=== PATIENT | male | born 1945 | race Caucasian/White ===

== ENCOUNTER 2023-01-11 07:50 | Outpatient (CLI) | payer MEDICARE, SELFPAY | END 2023-01-11 07:51 | disposition home or self-care (01) | LOC: NFLDREF 01-14 08:37 | PROVIDERS: PCP Family Medicine; Referring Provider Family Medicine; Visit Provider Family Medicine | DX: Z00.00 Encounter for general adult medical examination without abnormal findings (principal); E78.5 Hyperlipidemia, unspecified; I10 Essential (primary) hypertension; Z12.5 Encounter for screening for malignant neoplasm of prostate | CPT/HCPCS: 80053; 80061; 84153 ==

== ENCOUNTER 2023-02-04 11:55 | Outpatient (CLI) | payer MEDICARE, SELFPAY ==
--- NOTE | 2023-02-04 08:55 | W.ANESCHARGE ---
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
--- NOTE | 2023-02-04 13:11 | W.ANESCHARGE ---
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
== END 2023-02-04 11:56 | disposition home or self-care (01) ==
LOC: OP CLINIC 11:55
PROVIDERS: PCP Family Medicine; Visit Provider Internal Medicine
DX: R13.10 Dysphagia, unspecified (principal); K22.2 Esophageal obstruction
CPT/HCPCS: 00731; 43239; 88305; 99100; J2704; J3490

== ENCOUNTER 2023-02-24 08:13 | Emergency (ER) | payer MEDICARE, SELFPAY ==
[2023-02-24 08:17] VITALS: BP 208/87; PULSE 60; RESP 18; TEMP 36.2; O2SAT 99
[2023-02-24 09:02] LABS: Basophils Absolute Auto 0.04 K/uL (0.00-0.30); Basophils Percent Auto 0.4 % (0.0-3.0); Eosinophils Absolute Auto 0.14 K/uL (0.00-0.50); Eosinophils Percent Auto 1.5 % (0.0-7.0); Hematocrit 42.8 % (37.0-53.0); Hemoglobin* 14.3 gm/dL (13.5-17.5); Immature Granulocytes Abs Auto 0.01 K/uL (0.00-0.30); Immature Granulocytes Pct Auto 0.1 %; Lymphocytes Percent Auto 12.1 % (20-44); Mean Corpuscular HGB Conc 33 gm/dL (32-36); Mean Corpuscular Hemoglobin 30 pg (26-34); Mean Corpuscular Volume 90 fL (80-100); Monocytes Percent Auto 7.2 % (0.0-11.0); Neutrophils Percent Auto 78.7 % (42.0-72.0); Platelet Count* 198 K/uL (140-440); RDW Coefficient of Variation % 14.2 % (11.5-15.5); Red Blood Count 4.75 m/uL (4.30-5.90); White Blood Count* 9.54 K/uL (4.50-11.00)
[2023-02-24 09:05] LABS: Slide Review Reflex No
--- NOTE | 2023-02-24 09:09 | ED_ITS ---
HPI - General Adult General Chief complaint: Diarrhea Stated complaint: food poisoning, passing blood Time Seen by Provider: 02/24/23 08:23 Source: patient Mode of arrival: ambulatory Limitations: no limitations History of Present Illness HPI narrative: 77-year-old male coming in today complaining of rectal bleeding. He states that he was at a baseball game yesterday and had a hot dog which he feels was not properly cooked. Approximately 1 hour later he started having diarrhea. He had several episodes of diarrhea until 1 time he went to the bathroom and he had only blood come out. He believes was about a tbsp of blood. This occurred again this morning. In total he has had 6 episodes of diarrhea. He denies nausea or vomiting. No fevers or chills. He is not dizzy or lightheaded. He does not have any chest pain or shortness of breath. He has no rectal pain. Appetite has remained good. He does have a history of hemorrhoids which have blood in the past, however, have never blood this much. Last colonoscopy was 3- 4 years ago which he states he had polyps removed and he has a 5 year follow-up scheduled. Related Data Home Medications Medication Instructions Recorded Confirmed naproxen sodium 220 mg capsule 220 mg PO PRN 02/27/22 01/16/23 fluticasone propionate 50 1 spray intranasal QDAY PRN 12/10/22 01/16/23 mcg/actuation nasal spray,suspension aspirin 81 mg tablet,delayed 81 mg PO .every other day 01/16/23 02/24/23 release omeprazole 20 mg capsule,delayed 20 mg PO DAILY 02/24/23 02/24/23 release Previous Rx's Medication Instructions Recorded amlodipine 5 mg tablet 5 mg PO DAILY #90 tabs 01/16/23 atenolol 50 mg tablet 50 mg PO DAILY #90 tabs 01/16/23 lisinopril 30 mg tablet 30 mg PO DAILY #90 tabs 01/16/23 simvastatin 10 mg tablet 10 mg PO .Bedtime #90 tabs 01/16/23 Allergies Allergy/AdvReac Type Severity Reaction Status Date / Time No Known Drug Allergies Allergy Verified 01/16/23 09:24 Review of Systems Status of ROS: Reports: 10 or more systems reviewed and unremarkable except as noted in History and below [facility] Medical History Obstructive sleep apnea treated with continuous positive airway pressure (CPAP) ?G47.33 - Obstructive sleep apnea (adult) (pediatric) (ICD-10) ?Z99.89 - Dependence on other enabling machines and devices (ICD-10) Hypertension ?I10 - Essential (primary) hypertension (ICD-10) Hyperlipidemia ?E78.5 - Hyperlipidemia, unspecified (ICD-10) Herpes zoster (12/02/21) ?B02.9 - Zoster without complications (ICD-10) Surgical History Status post total knee replacement ?Z96.659 - Presence of unspecified artificial knee joint (ICD-10) History of carpal tunnel release (07/07/21) ?Z98.890 - Other specified postprocedural states (ICD-10) Family History Father Osteoarthritis Sister Osteoarthritis Brother Osteoarthritis Mother Stroke Social History Narrative: SOCIAL HISTORY: . Two children 5 grandchildren. 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 He is sexually active. Main exercise is playing golf although he uses a cart. He did more walking in [place] where they spent the winter. HABITS: No tobacco or recreational drug use. Alcohol use is 15 drinks per week. FAMILY HISTORY: Mother with stroke in the 1960s. Unspecified relative with heart disease. What is your current living situation?: I presently have a place to live Problems where you live: no known problems In the past 12 months, utilities in danger of being shut off: no In the past 12 mos, have been you worried that your food would run out before you had money to buy more?: never true In the past 12 mos, the food you bought just didn't last and you didn't have money to buy more?: never true Smoking Status: Former smoker What tobacco products do you use: cigarettes Smoking quit date/years: >15 years ago Do you use any of these nicotine containing products: None How often do you have a drink containing alcohol: never AUDIT-C Alcohol total score: 0 Non-prescribed substance use: denies use Are you now , , , , never or living with a partner: Social isolation score (0-1 are the most socially isolated patients): 1 How often does anyone, including family, friends and others, physically hurt you : How often does anyone, including family, friends and others, insult or talk down to you: How often does anyone, including family, friends and others, threaten you with harm: How often does anyone, including family, friends and others, scream or curse at you: Little interest or pleasure in doing things: not at all Feeling down, depressed, or hopeless: not at all Exam Narrative: Exam Narrative: Well-nourished well-developed patient in no acute distress. Alert and oriented. Answers questions appropriately. Mood and affect are appropriate. Thoughts are goal oriented and rational. No tangential or magical thinking noted. Patient speaks in full sentences without needing to catch his breath. HEENT: Normocephalic atraumatic. Pupils are equally round reactive to light. Extraocular muscles are intact. Conjunctivae are moist without any icterus noted. Moist mucous membranes. Neck is soft. Cardiovascular: Heart is regular rate and rhythm S1 and S2 are present without any murmurs. Lungs: Clear to auscultation bilaterally no wheezes rhonchi or rales are appreciated. Patient takes deep breaths without any discomfort. Abdomen: Soft and nontender nondistended with normal bowel sounds. No guarding or rebound. No masses or organomegaly appreciated. Extremities: Bilateral lower extremities are without edema. Skin: Well perfused without any obvious rashes. Rectal exam: He does have external hemorrhoids which are not thrombosed or actively. I do not see any rectal fissures. He has normal rectal tone. No internal rectal masses. There is no stool in the rectal vault. There is no blood on my gloved finger. Const: Vital Signs, click to edit/add: Vital Signs - 24 hr 02/24/23 08:17 Temperature 97.2 F L Pulse Rate [Right Pulse Oximeter] 60 Respiratory Rate 18 Blood Pressure [Ri ght Upper Arm] 208/87 H Pulse Oximetry 99 Oxygen Delivery Me thod Room Air Course Course Hospital Course: Lab work was unremarkable, no evidence of anemia. Vital Signs Vital signs: Initial Vital Signs Temperature 97.2 F L 02/24/23 08:17 Temperature Source Temporal Artery Scan 02/24/23 08:17 Pulse Rate 60 02/24/23 08:17 Respiratory Rate 18 02/24/23 08:17 Blood Pressure 208/87 H 02/24/23 08:17 Blood Pressure Mean 127 H 02/24/23 08:17 Blood Pressure Position Sitting 02/24/23 08:17 Pulse Oximetry 99 02/24/23 08:17 Oxygen Delivery Method Room Air 02/24/23 08:17 Vital Signs Temperature 97.2 F L 02/24/23 08:17 Pulse Rate 60 02/24/23 08:17 Respiratory Rate 18 02/24/23 08:17 Blood Pressure 208/87 H 02/24/23 08:17 Pulse Oximetry 99 02/24/23 08:17 Oxygen Delivery Method Room Air 02/24/23 08:17 Temperature 97.2 F L 02/24/23 08:17 Pulse Rate 60 02/24/23 08:17 Respiratory Rate 18 02/24/23 08:17 Blood Pressure 208/87 H 02/24/23 08:17 Pulse Oximetry 99 02/24/23 08:17 Oxygen Delivery Method Room Air 02/24/23 08:17 Medical Decision Making MDM Narrative Medical decision making narrative: 77-year-old male with diarrhea which is now slowing down, but her blood per rectum. Differential diagnoses includes bleeding from hemorrhoids, anal fissures. Given his lack of other symptoms I do not think this represents inflammatory disease. At this point recommend following up with primary care physician to discuss further management such as a colonoscopy. Return to the ER if bleeding worsens. Lab Data Lab results reviewed: Yes I reviewed the patient's lab results Labs: Lab Results 02/24/23 02/24/23 02/24/23 Range/Units 08:53 08:53 08:53 WBC 9.54 (4.50-11.00) K/uL RBC 4.75 (4.30-5.90) m/uL Hgb 14.3 (13.5-17.5) gm/dL Hct 42.8 (37.0-53.0) % MCV 90 (80-100) fL MCH 30 (26-34) pg MCHC 33 (32-36) gm/dL RDW Coeff of Dena 14.2 (11.5-15.5) % Plt Count 198 (140-440) K/uL Neut % (Auto) 78.7 H (42.0-72.0) % Lymph % (Auto) 12.1 L (20-44) % [place] % (Auto) 7.2 (0.0-11.0) % Eos % (Auto) 1.5 (0.0-7.0) % Baso % (Auto) 0.4 (0.0-3.0) % Neut # (Auto) 7.50 H (1.7-7.0) K/uL Lymph # (Auto) 1.20 (0.90-2.90) K/uL [place] # (Auto) 0.70 (0.00-0.90) K/UL Eos # (Auto) 0.14 (0.00-0.50) K/uL Baso # (Auto) 0.04 (0.00-0.30) K/uL Abs Immat Gran (auto) 0.01 (0.00-0.30) K/uL Imm/Tot Granulo (auto) 0.1 % Sodium 135 (135-149) mmol/L Potassium 4.6 (3.6-5.1) mmol/L Chloride 101 (96-114) mmol/L Carbon Dioxide 31 (20-32) mmol/L BUN 18 (7-30) mg/dL Creatinine 1.1 (0.5-1.5) mg/dL Estimated Creat Clear 59.91 Estimated GFR 70 ml/min Glucose 111 (60-115) mg/dL Calcium 9.1 (8.4-10.6) mg/dL Total Bilirubin 0.7 Cancelled (0.1-1.5) mg/dL Direct Bilirubin 0.0 Cancelled (0.0-0.5) mg/dL AST 25 (12-35) U/L ALT (4-50) U/L Alkaline Phosphatase (40-150) U/L Total Protein (6.0-8.3) g/dL Albumin (3.3-5.0) g/dL 02/24/23 02/24/23 02/24/23 Range/Units 08:53 08:53 08:53 WBC (4.50-11.00) K/uL RBC (4.30-5.90) m/uL Hgb (13.5-17.5) gm/dL Hct (37.0-53.0) % MCV (80-100) fL MCH (26-34) pg MCHC (32-36) gm/dL RDW Coeff of Dena (11.5-15.5) % Plt Count (140-440) K/uL Neut % (Auto) (42.0-72.0) % Lymph % (Auto) (20-44) % [place] % (Auto) (0.0-11.0) % Eos % (Auto) (0.0-7.0) % Baso % (Auto) (0.0-3.0) % Neut # (Auto) (1.7-7.0) K/uL Lymph # (Auto) (0.90-2.90) K/uL [place] # (Auto) (0.00-0.90) K/UL Eos # (Auto) (0.00-0.50) K/uL Baso # (Auto) (0.00-0.30) K/uL Abs Immat Gran (auto) (0.00-0.30) K/uL Imm/Tot Granulo (auto) % Sodium (135-149) mmol/L Potassium (3.6-5.1) mmol/L Chloride (96-114) mmol/L Carbon Dioxide (20-32) mmol/L BUN (7-30) mg/dL Creatinine (0.5-1.5) mg/dL Estimated Creat Clear Estimated GFR ml/min Glucose (60-115) mg/dL Calcium (8.4-10.6) mg/dL Total Bilirubin (0.1-1.5) mg/dL Direct Bilirubin (0.0-0.5) mg/dL AST Cancelled (12-35) U/L ALT 22 Cancelled (4-50) U/L Alkaline Phosphatase 67 Cancelled (40-150) U/L Total Protein 7.5 (6.0-8.3) g/dL Albumin (3.3-5.0) g/dL 02/24/23 02/24/23 Range/Units 08:53 08:53 WBC (4.50-11.00) K/uL RBC (4.30-5.90) m/uL Hgb (13.5-17.5) gm/dL Hct (37.0-53.0) % MCV (80-100) fL MCH (26-34) pg MCHC (32-36) gm/dL RDW Coeff of Dnea (11.5-15.5) % Plt Count (140-440) K/uL Neut % (Auto) (42.0-72.0) % Lymph % (Auto) (20-44) % [place] % (Auto) (0.0-11.0) % Eos % (Auto) (0.0-7.0) % Baso % (Auto) (0.0-3.0) % Neut # (Auto) (1.7-7.0) K/uL Lymph # (Auto) (0.90-2.90) K/uL [place] # (Auto) (0.00-0.90) K/UL Eos # (Auto) (0.00-0.50) K/uL Baso # (Auto) (0.00-0.30) K/uL Abs Immat Gran (auto) (0.00-0.30) K/uL Imm/Tot Granulo (auto) % Sodium (135-149) mmol/L Potassium (3.6-5.1) mmol/L Chloride (96-114) mmol/L Carbon Dioxide (20-32) mmol/L BUN (7-30) mg/dL Creatinine (0.5-1.5) mg/dL Estimated Creat Clear Estimated GFR ml/min Glucose (60-115) mg/dL Calcium (8.4-10.6) mg/dL Total Bilirubin (0.1-1.5) mg/dL Direct Bilirubin (0.0-0.5) mg/dL AST (12-35) U/L ALT (4-50) U/L Alkaline Phosphatase (40-150) U/L Total Protein Cancelled (6.0-8.3) g/dL Albumin 4.3 Cancelled (3.3-5.0) g/dL Discharge Plan Discharge Clinical Impression: Bright red rectal bleeding Patient Disposition: Home, Self-Care Condition: Stable Additional Instructions: Likely the source of your bleed are hemorrhoids. You should follow-up with your primary care provider this coming week to discuss the potential need for colonoscopy. Return to the ER if bleeding worsens. Okay to use Imodium to slow down diarrhea. Prescriptions: No Action naproxen sodium 220 mg capsule 220 mg PO PRN aspirin 81 mg tablet,delayed release (DR/EC) 81 mg PO .every other day amlodipine 5 mg tablet 5 mg PO DAILY Qty: 90 3RF atenolol 50 mg tablet 50 mg PO DAILY Qty: 90 3RF lisinopril 30 mg tablet 30 mg PO DAILY Qty: 90 3RF simvastatin 10 mg tablet 10 mg PO .Bedtime Qty: 90 3RF fluticasone propionate 50 mcg/actuation spray,suspension 1 spray intranasal QDAY PRN omeprazole 20 mg capsule,delayed release(DR/EC) 20 mg PO DAILY Follow Up/Referrals: Kedar Lopez MD [Primary Care Provider] - Stand Alone Forms: Pocket Social Info Instructions
[2023-02-24 09:16] LABS: Albumin* 4.3 g/dL (3.3-5.0); Chloride* 101 mmol/L (96-114); Sodium* 135 mmol/L (135-149)
[2023-02-24 09:17] LABS: Potassium* 4.6 mmol/L (3.6-5.1)
[2023-02-24 09:19] LABS: Alanine Aminotransferase* 22 U/L (4-50); Alkaline Phosphatase* 67 U/L (40-150); Aspartate Amino Transferase* 25 U/L (12-35); Bilirubin Total* 0.7 mg/dL (0.1-1.5); Blood Urea Nitrogen* 18 mg/dL (7-30); Carbon Dioxide* 31 mmol/L (20-32); Creatinine* 1.1 mg/dL (0.5-1.5); Est. Creatinine Clearance* 59.91; Estimated Glomerular Filt Rate 70 ml/min; Glucose* 111 mg/dL (60-115); Total Protein* 7.5 g/dL (6.0-8.3)
[2023-02-24 09:20] LABS: Calcium* 9.1 mg/dL (8.4-10.6)
[2023-02-24 09:27] LABS: C Reactive Protein* < 0.5 mg/dL (0.5-1.0)
[2023-02-24 09:47] LABS: Erythrocyte SedimentationRate* 4 mm/hr (2-15)
== END 2023-02-24 09:48 | disposition home or self-care (01) ==
PROVIDERS: Emergency Provider Family Medicine; PCP Family Medicine
DX: K62.5 Hemorrhage of anus and rectum (principal)
CPT/HCPCS: 36415; 80048; 80076; 82270; 85025; 85651; 86140; 99283; 99284

== ENCOUNTER 2023-06-05 06:27 | Day surgery (SDC) | payer MEDICARE, SELFPAY ==
[2023-06-05] VITALS (7 sets, daily range): BP systolic 166–213; BP diastolic 78–99; PULSE 64–69; RESP 16–17; TEMP 36.8–37.2; O2SAT 96–97; BMI 30.8
[2023-06-05] MEDS: BUPIVACAINE 0.5% 30 ML INJECTION (07:00)
[2023-06-05] MEDS: ETHYL CHLORIDE 1 APPLICATION 1 APPLIC TOPICAL (07:00)
--- NOTE | 2023-06-05 07:58 | SUR.OPER ---
PATIENT QUESTIONS ANSWERED SATISFACTORILY PREOPERATIVELY. PATIENT BROUGHT TO OR #2 PER WHEELCHAIR. Patient positioned supine on OR #2 bed. The perioperative team supported right arm bilaterally on arm boards. Final approval of positioning by surgeon.
[2023-06-05] MEDS: NEOMYCIN/BACITRACIN/POLYMYXIN B 1 APPLIC TOPICAL (08:05)
--- NOTE | 2023-06-05 08:05 | PM.ORPRC ---
Procedure Note Date of procedure: 06/05/23 Procedure: PREOPERATIVE DIAGNOSIS: 1. Left carpal tunnel syndrome POSTOPERATIVE DIAGNOSIS: 1. Left carpal tunnel syndrome PROCEDURE: 1. Left open carpal tunnel release SURGEON: Alan Palafox MD. VERTICAL BORING MILL OPERATOR: LUIS Mera ANESTHESIA: Local anesthetic (50:50 mixture of 1% lidocaine with epi and 0.5% marcaine plain) - 10ml total IMPLANTS: None EBL: 2 mL TOURNIQUET: None COMPLICATIONS: None evident INDICATIONS: The patient is a pleasant 78-year-old male who has experienced left hand numbess/tingling affecting the radial 3.5 digits for multiple months. It has progressively gotten worse. Nonoperative management has been tried and failed, and therefore surgery was recommended. DESCRIPTION OF PROCEDURE: Following a thorough discussion of risks, benefits, and alternatives consent was obtained and the operative extremity was marked. The patient was brought to the operating room and placed supine on the operating table. Local anesthesia induction was undertaken in preop holding. No antibiotics were administered as this was planned to be a local case only. Proper time-out was performed identifying proper patient, site, and procedure. The operative extremity was prepped and draped in the appropriate sterile fashion using ChloraPrep. An incision was made in line with the radial border of the ring finger beginning 1 cm distal to the distal wrist crease and progressing for another 2.5cm distal. Caution was taken to stay proximal to Alston's cardinal line. Sharp incision through the skin, subcutaneous tissue, and palmar fascia was performed. The thenar musculature was bluntly elevated off the transverse carpal ligament. The ligament was directly visualized, and divided sharply with a 15 blade. This was released from its most proximal to the most distal extent. Metzenbaum scissor was also utilized to release the fascia extension proximally. We confirmed complete release of the transverse carpal ligament. Closure was performed with 4-O nylon in interrupted fashion. Soft dressings were applied, and the patient was transferred to the recovery room in stable condition. PLAN: 1. Encourage elevation of the operative extremity. 2. Range of motion of the fingers and hand/wrist as tolerated. 3. Ibuprofen/acetaminophen and/or oxycodone as needed for pain control. 4. Follow up with PA visit or nurse visit in 12-16 days for wound check and suture removal.
== END 2023-06-05 08:36 | disposition home or self-care (01) ==
PROVIDERS: PCP Family Medicine; Visit Provider Orthopaedic Surgery Sports Medicine
PROC: (CPT 64721; principal; 2023-06-05 08:00)
DX: G56.02 Carpal tunnel syndrome, left upper limb (principal)
CPT/HCPCS: 64721; J0665

== ENCOUNTER 2024-01-14 07:45 | Outpatient (CLI) | payer MEDICARE, SELFPAY ==
--- OUTSIDE RECORDS SUMMARY | 2024-01-17 20:45 | XMS_ITS | Encounter Summary ---
Author Organization [facility] Address [address] [place] [id number] Care Team Providers Care Rpg Programmer Name Role Phone Sam Madrigal MD Primary Care Provider Unavaila ble Reason for Visit * Reason Comments RASH B/p reports no curre nt flare up. Report meds working .look at spot on abdomen, Encounter Details Date Type Department Care Team (Late st Contact Info) Description 11/06/2023 10:00 AM CDT Office Visit [facility] [address] [facility] [place] [address] Abby Maya MD [address] [place] [phone] Seborrheic keratoses (Primary Dx); Bullous pemphigoid; History of ongoing treatment with high-risk medication Social History Tobacco Use Types Packs/Day Years Used Date Smoking Tobacco: Former Cigarettes 1.5 20 0 11/29/1964 - 11/29/1984 Smokeless Tobacco: Never Alcohol Use Standard Drinks/Week Comments Yes 10 (1 standard drink = 0.6 oz pu re alcohol) Weekly PHQ-2 Answer Date Recorded PHQ-2 Score 0 01/05/2021 Sex and Gender Information Value Date Recorded Sex Assigned at Not on file Gender Identity Not on file Sexual Orientation Not on file documented as of this encounter Patient Instructions * Patient Instructions* Gilbert Izaguirre, JHONNY - 11/06/2023 10:00 AM CDT Thank you for allowing me to participate in your care at [facility]. If you have had a biopsy done today you will be contacted with your biopsy results by phone, letteror email as soon as results are available (usually within 7 days). Results will come to your MyChart at the same time as your provider, so you may see these before we do. If that happens, do not panic! We will be in touch. [facility] am [facility] on Saturday, Saturday, and Saturday. If you need to reach me for a question or concern, please contact me.The dermatology appointment number is [phone]). I generally return messages between 12 or after 3:00 when I am not seeing patients in clinic. We also have excellent Dermatology triage nurses who may be able to answer your questions or relay information from me to you. The schedule fills very quickly and I appreciate you making routine appointments as far in advance as possible. The schedule is open 12 months in advance. I recognize that your time is of value and I try very hard to remain on schedule. Punctual check infor appointments is appreciated and will help me to meet everyone???s needs in a timely manner. Please remember to use appropriate sun protection and I look forward to providing ongoing care for your skin needs. documented in this encounter Progress Notes * Abby Maya MD - 11/06/2023 10:00 AM CDT Dermatology Note Chief Complaint Patient presents with RASH B/p reports no current flare up. Report meds working .look at spot on abdomen, Dermatology Visit Questionnaire (Mychart) 11/03/2023 1:27 PM CDT - Filed by Patient What's the main skin concern you'd like to discuss during your visit? BP this is a follow-up visit What prescribed or [id number] medications, supplements, ointments or creams have you used foryour skin concern in the past? Mycophenolate 2x/day, Clobetasol ointment as needed Have you seen someone for your skin concern outside of the [facility] network? No HPI: Kang Mckoy is a 78 y.o. old male who presents for BP follow up. On CellCept 500 mg BID since April 2023. No rash, minimal itching. Spot treats itchy areas on flanks with clobetasol. Has ?headache as well as ongoing issues with glaucoma. No GI issues. Derm History: BP (biopsy proven) - 04/2023 (failed doxycycline, CellCept started 04/2023) ?lip biopsy done approximately 2014 - unknown reportedly benign results AKS-cryotherapy EICs Seborrheic dermatitis - mometasone solution PRN Labs from outside records 02/24/2023: CBC, CMP WNL ROS: Healthy, otherwise feeling well today. PMH: OA, HTN, BPH Family History: No known family history of skin cancer or atypical nevi. Social History: [employer] in [place], former smoker. No smokeless tobacco. 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 Medications: has a current medication list which includes the following prescription(s): amlodipine, aspirin, atenolol, zyrtec allergy, clobetasol, hydroxyzine hcl, latanoprost, lisinopril, mycophenolate, naproxen sodium, omeprazole, and simvastatin. Allergies: has No Known Allergies. General: This is a WDWN male sitting comfortably in no distress. Neuro: Very pleasant and cooperative. Alert and oriented x 3 Skin: Areas examined included the head, neck, chest, back, abdomen, bilateral upper extremities. Pertinent findings include: 1. Few stuck on brown papules on torso. No edematous or urticarial areas on torso. Assessment/Plan: 1. Bullous pemphigoid, biopsy proven. Improving on CellCept. Continue CellCept. DISCUSSED TRYING TO DECREASE TO 500 MG DAILY FOR NEXT 3 MONTHS. If flare, increase back to 500 mg BID. Can continue with clobetasol ointment BID PRN new itchy areas. Continue omeprazole. Side effects including immunosuppression and GI upset reviewed. Labs today, CBC and CMP. Follow-up 3 months. PCP and ophthalmology follow up for headache concerns. Abby Maya MD 11/06/2023 documented in this encounter Plan of Treatment Upcoming Encounters Date Type Department Care Team (Late st Contact Info) Description 02/19/2024 10:30 AM CDT Appointment [facility] [address] [facility] [place] [address] Abby Maya MD [address] [place], [place] [phone] documented as of this encounter Results * (ABNORMAL) CMP - Comprehensive Metabolic Panel (11/06/2023 10:30 AM CDT) Sodium 135(L) 136 - 145 mmol/L 11/06/2023 12:40 PM CDT [facility] Potassium 4.9 3.5 - 5.1 mmol/L 11/06/2023 12:40 PM T [facility] Chloride 100 98 - 109 mmol/L 11/06/2023 12:40 PM T [facility] CO2 25 20 - 29 mmol/L 11/06/2023 12:40 PM T [facility] Anion Gap 10 7 - 16 mmol/L 11/06/2023 12:40 PM T [facility] Calcium 9.5 8.4 - 10.4 mg/dL 11/06/2023 12:40 PM T [facility] BUN 20 7 - 26 mg/dL 11/06/2023 12:40 PM T [facility] Creatinine 1.16 0.73 - 1.18 mg/dL 11/06/2023 12:40 PM T [facility] Alkaline Phosphatase 87 40 - 150 U/L 11/06/2023 12:40 PM T [facility] AST (SGOT) 16 10 - 40 U/L 11/06/2023 12:40 PM T [facility] ALT (SGPT) 14 <=55 U/L 11/06/2023 12:40 PM T [facility] Bilirubin, Total 0.7 0.2 - 1.2 mg/dL 11/06/2023 12:40 PM T [facility] Protein, Total 7.1 6.4 - 8.3 g/dL 11/06/2023 12:40 PM T [facility] Albumin 3.7 3.5 - 5.0 g/dL 11/06/2023 12:40 PM T [facility] Glucose 100 70 - 100 mg/dL 11/06/2023 12:40 PM T [facility] Comment:The given reference range is for the fasting state. Non-fasting reference range for glucose is 70 - 180 mg/dL. GFR, Estimated >60 >60 mL/min/1. 73m2 11/06/2023 12:40 PM T [facility] Hours Fasting 0.0 8 - 12 Hours 11/06/2023 12:40 PM [facility] Blood Venipuncture / Unknown 11/06/2023 10:30 AM CDT 11/06/2023 10:30 AM CDT Abby Maya MD LAB_1 Performing Organization Address City/State/[facility] Co de Phone Number [facility] [address] documented in this encounter Visit Diagnoses Diagnosis Seborrheic keratoses- Primary Bullous pemphigoid Pemphigoid History of ongoing treatment with high-risk medication Encounter for long-term (current) use of other medications documented in this encounter Care Teams Rpg Programmer Relationship Specialty Start Date End Date Sam Madrigal MD PCP - General 11/17/07 documented as of this encounter
--- OUTSIDE RECORDS SUMMARY | 2024-01-17 20:45 | XMS_ITS | Encounter Summary ---
Author Organization [facility] Address [address] [address] Care Team Providers Care Systems Spec Name Role Phone Sam Madrigal MD Primary Care Provider Unavaila ble Encounter Details Date Type Department Care Team (Latest Contact Info) Description 05/27/2019 Flowsheet External to External, [place] [address] BP Social History Tobacco Use Types Packs/Day Years Used Date Smoking Tobacco: Former Cigarettes 1.5 20 0 11/29/1964 - 11/29/1984 Smokeless Tobacco: Never Alcohol Use Standard Drinks/Week Comments Yes 10 (1 standard drink = 0.6 oz pu re alcohol) Weekly PHQ-2 Answer Date Recorded PHQ-2 Score 0 03/25/2019 Sex and Gender Information Value Date Recorded Sex Assigned at Not on file Gender Identity Not on file Sexual Orientation Not on file documented as of this encounter Plan of Treatment Upcoming Encounters Date Type Department Care Team (Late st Contact Info) Description 02/19/2024 10:30 AM CDT Appointment [facility] [address] [facility] [place] [address] Abby Maya MD [address] [place] [address] documented as of this encounter Visit Diagnoses Not on filedocumented in this encounter Care Teams Systems Spec Relationship Specialty Start Date End Date Sam Madrigal MD PCP - General 11/17/07 documented as of this encounter
--- OUTSIDE RECORDS SUMMARY | 2024-01-17 20:45 | XMS_ITS | Encounter Summary ---
Author Organization [facility] Address [address] [place] [address] Care Team Providers Care Liquid Yeast Supervisor Name Role Phone Sam Madrigal MD Primary Care Provider Unavaila ble Reason for Referral * Procedure/Equipment (Routine) - New Request Specialty Diagnoses / Procedures Referred By Casey ivy Referred To Contact Diagnoses Obstructive sleep apnea (adult) (pediatric) Procedures Positive Airway Pressure - Replacement/Repair Donis Luong APRN, CNP [address] [place] [address] Referral ID Status Reason Start Date Expiration Date V isits Requested Visits Authorized [id number] New Request 01/09/2024 04/09/2025 1 1 Encounter Details Date Type Department Care Team (Late st Contact Info) Description 01/09/2024 Notes/Orders [facility] [address] [facility] [place] [address] Geovanna Headley Obstructive sleep apnea (adult) (pediatric) (Primary Dx) Social History Tobacco Use Types Packs/Day Years [...] CDT Appointment [facility]ty [facility] [address] [place] [address]. [place] [address] Abby Maya MD [address] [place] [address] documented as of this encounter Visit Diagnoses Diagnosis Obstructive sleep apnea (adult) (pediatric)- Primary documented in this encounter Care Teams Liquid Yeast Supervisor Relationship Specialty Start Date End Date Sam Madrigal MD PCP - General 11/17/07 documented as of this encounter
--- OUTSIDE RECORDS SUMMARY | 2024-01-17 20:45 | XMS_ITS | Clinical Summary ---
Author Organization [facility] Address [place], [place] [address] Care Team Providers Care Client Relations Representative Name Role Phone Sam Madrigal Bennie Primary Care Provider Unavailabl e Allergies No known active allergies Medications Medication Sig Dispensed Refills Start Date End Date Status clindamycin (CLEOCIN) 150 mg capsuleIndications: Aftercare following joint replacement 2 tablets 1 hour before appointment and 1 tablet 6 hours after initial dose. 3 capsule 3 04/20/2015 Active atenolol (TENORMIN) 50 mg tablet 03/08/2016 Active lisinopril (PRINIVIL; ZESTRIL) 20 mg tablet 03/08/2016 Active simvastatin (ZOCOR) 20 mg tablet 03/08/2016 Active Active Problems Problem Noted Date Diagnosed Date s/p Right TKA 201104/26/2016 s/p Left TKA 02/26/2013 04/26/2016 Family History Medical History Relation Name Comments Hyperlipidemia Mother Stroke Mother Relation Name Status Comments Mother Social History Tobacco Use Types Packs/Day Years Used Date Smoking Tobacco: Never Smokeless Tobacco: Never Alcohol Use Standard Drinks/Week Comments Yes 0 (1 standard drink = 0.6 oz pur e alcohol) 2 drinks a day Sex and Gender Information Value Date Recorded Sex Assigned at Not on file Gender Identity Not on file Sexual Orientation Not on file Obstetrics History Last Filed Vital Signs Vital Sign Reading Time Taken Comments Blood Pressure - - Pulse - - Temperature - - Respiratory Rate - - Oxygen Saturation - - Inhaled Oxygen Concentration - - Weight 90.7 kg (200 lb) 04/26/2016 11:22 AM CDT Height 177.8 cm (5' 10) 04/26/2016 11:22 AM CDT Body Mass Index 28.7 04/26/2016 11:22 AM CDT Plan of Treatment Health Maintenance Due Date Last Done Comments Tdap 1958 Depression screening for age 12+ 1959 Hepatitis C screening for age 18-79 1965 Tetanus booster 1967 Zoster (shingles) series for age 50+ (1 of 2) 1997 Pneumococcal series for age 65+ (1 of 1 - PCV) 2012 BMI (ht and wt on same day) for age 18+ 04/26/2017 0 04/26/2016 COVID-19 vaccine series (3 - 2022-24 season) 2023 11/25/2020, 11/04/2020 Influenza for age 65+ 03/29/2024 Care Teams Client Relations Representative Relationship Specialty Start Date End Date Sam Madrigal PCP - General Family Practice 04/26/16
--- OUTSIDE RECORDS SUMMARY | 2024-01-17 20:45 | XMS_ITS | Encounter Summary ---
Author Organization [facility] Address [address] [place] [address] Care Team Providers Care Marketing Editor Name Role Phone Sam Madrigal MD Primary Care Provider Unavaila ble Encounter Details Date Type Department Care Team (Late Contact Info) Description 11/06/2023 10:40 AM CDT Lab Visit Specialty [facility] Laboratory 401 [facility]. [place], [place] [id number] Bullous pemphigoid Social History Tobacco Use Types Packs/Day Years [...] on file documented as of this encounter Progress Notes * Abby Maya MD - 11/06/2023 10:40 AM CDT Lab results released online with note. No further action needed. documented in this encounter Plan of Treatment Upcoming Encounters Date Type Department Care Team (Late Contact Info) Description 02/19/2024 10:30 AM CDT Appointment [facility] 401 [facility] [place] [address] Abby Maya MD [address] [place], [place] [phone] documented as of this encounter Procedures Procedure Name Priority Date/Time Associated Diagnosis Comments CBC AND DIFFERENTIAL PANEL Routine 11/06/2023 10:30 AM CDT Bullous pemphigoid COMPLETE BLOOD COUNT-W/DIFF Routine 11/06/2023 10:30 AM CDT Bullous pemphigoid COMPREHENSIVE METABOLIC PANEL Routine 11/06/2023 10:30 AM CDT Bullous pemphigoid documented in this encounter Results * (ABNORMAL) Complete Blood Count-W/Diff (11/06/2023 10:30 AM CDT) WBC 6.7 3.5 - 10.5 x10(9)/L 11/06/2023 10:41 AM CDT [facility] RBC 4.72 4.32 - 5.72 x10(12)/L 11/06/2023 10:41 AM CDT [facility] Hemoglobin 14.1 13.5 - 17.5 g/dL 11/06/2023 10:41 AM CDT [facility] HCT 42.3 38.8 - 50.0 % 11/06/2023 10:41 AM CDT [facility] MCV 89.6 80.0 - 100.0 fL 11/06/2023 10:41 AM CDT [facility] MCH 29.9 27.6 - 33.3 pg 11/06/2023 10:41 AM CDT [facility] MCHC 33.3 31.5 - 35.2 g/dL 11/06/2023 10:41 AM CDT [facility] RDW 13.0 11.9 - 15.5 % 11/06/2023 10:41 AM CDT [facility] Platelets 244 150 - 450 x10(9)/L 11/06/2023 10:41 AM CDT [facility] Neutrophil Absolute 4.7 1.7 - 7.0 10(9)/L 11/06/2023 10:41 AM CDT [facility] Lymphocyte Absolute 0.9(L) 1.0 - 4.8 10(9)/L 11/06/2023 10:41 AM CDT [facility] Monocyte Absolute 0.8 0.2 - 0.9 10(9)/L 11/06/2023 10:41 AM CDT [facility] Eosinophil Absolute 0.2 0.0 - 0.5 10(9)/L 11/06/2023 10:41 AM CDT [facility] Basophil Absolute 0.0 0.0 - 0.3 10(9)/L 11/06/2023 10:41 AM CDT [facility] Immature Granulocyte % 0.1 0.0 - 0.5 % 11/06/2023 10:41 AM CDT [facility] Blood Venipuncture / Unknown 11/06/2023 10:30 AM CDT 11/06/2023 10:30 AM CDT Abby Maya MD LAB_1 [facility] [address] [place] [address] * (ABNORMAL) CMP - Comprehensive Metabolic Panel (11/06/2023 10:30 AM CDT) Sodium 135(L) 136 - 145 mmol/L 11/06/2023 12:40 PM [facility] Potassium 4.9 3.5 - 5.1 mmol/L 11/06/2023 12:40 PM T [facility] Chloride 100 98 - 109 mmol/L 11/06/2023 12:40 PM T [facility] CO2 25 20 - 29 mmol/L 11/06/2023 12:40 PM T [facility] Anion Gap 10 7 - 16 mmol/L 11/06/2023 12:40 PM T [facility] Calcium 9.5 8.4 - 10.4 mg/dL 11/06/2023 12:40 PM T [facility] BUN 20 7 - 26 mg/dL 11/06/2023 12:40 PM T [facility] Creatinine 1.16 0.73 - 1.18 mg/dL 11/06/2023 12:40 PM T [facility] Alkaline Phosphatase 87 40 - 150 U/L 11/06/2023 12:40 PM T [facility] AST (SGOT) 16 10 - 40 U/L 11/06/2023 12:40 PM T [facility] ALT (SGPT) 14 <=55 U/L 11/06/2023 12:40 PM T [facility] Bilirubin, Total 0.7 0.2 - 1.2 mg/dL 11/06/2023 12:40 PM T [facility] Protein, Total 7.1 6.4 - 8.3 g/dL 11/06/2023 12:40 PM T [facility] Albumin 3.7 3.5 - 5.0 g/dL 11/06/2023 12:40 PM [facility] Glucose 100 70 - 100 mg/dL 11/06/2023 12:40 PM [facility] Comment:The given reference range is for the fasting state. Non-fasting reference range for glucose is 70 - 180 mg/dL. GFR, Estimated >60 >60 mL/min/1. 73m2 11/06/2023 12:40 PM T [facility] Hours Fasting 0.0 8 - 12 Hours 11/06/2023 12:40 PM [facility] Blood Venipuncture / Unknown 11/06/2023 10:30 AM CDT 11/06/2023 10:30 AM T Abby Maya MD LAB_1 [facility] [address] documented in this encounter Visit Diagnoses Diagnosis Bullous pemphigoid Pemphigoid documented in this encounter Care Teams Marketing Editor Relationship Specialty Start Date End Date Sam Madrigal MD PCP - General 11/17/07 documented as of this encounter
--- OUTSIDE RECORDS SUMMARY | 2024-01-17 20:45 | XMS_ITS | Encounter Summary ---
Author Organization [facility] Address [address], [place] [address] Care Team Providers Care Developmental Specialist Name Role Phone Sam Madrigal MD Primary Care Provider Unavaila ble Reason for Referral * Procedure/Equipment (Routine) - New Request Specialty Diagnoses / Procedures Referred By Contac t Referred To Contact Diagnoses Obstructive sleep apnea (adult) (pediatric) Procedures Sleep Management Other MD Azalia [address] [place] [address] Referral ID Status Reason Start Date Expiration Date V isits Requested Visits Authorized [id number] New Request 11/28/2023 02/26/2025 1 1 Encounter Details Date Type Department Care Team (Late st Contact Info) Description 11/28/2023 Notes/Orders [facility] [address] [place] [phone] Hang Pena [address] [place] [address] Obstructive sleep apnea (adult) (pediatric) (Primary Dx) [...] Appointment Specialty Center [address] [facility] [facility] [address] [place] [address] Abby Maya MD [address] [place] [address] documented as of this encounter Visit Diagnoses Diagnosis Obstructive sleep apnea (adult) (pediatric)- Primary documented in this encounter Care Teams Developmental Specialist Relationship Specialty Start Date End Date Sam Madrigal MD PCP - General 11/17/07 documented as of this encounter
--- OUTSIDE RECORDS SUMMARY | 2024-01-17 20:45 | XMS_ITS | Encounter Summary ---
Author Organization [facility] Address [address] [place] [address] Care Team Providers Care Production Grader Name Role Phone Sam Madrigal MD Primary Care Provider Unavaila ble Reason for Referral * Procedure/Equipment (Routine) - Authorized Specialty Diagnoses / Procedures Referred By Contac t Referred To Contact Diagnoses Obstructive sleep apnea (adult) (pediatric) Procedures Sleep Management Other MD Azalia [address] [place] [address] Referral ID Status Reason Start Date Expiration Date V isits Requested Visits Authorized [id number] Authorized 01/10/2024 04/10/2025 1 1 Encounter Details Date Type Department Care Team (Late st Contact Info) Description 01/10/2024 Notes/Orders [facility] [address] [place] [address] Geovanna Headley Obstructive sleep apnea (adult) (pediatric) [...] CDT Appointment Specialty Center [address] [place] [address]. [place] [address] Abby Maya MD [address] [place] [address] documented as of this encounter Visit Diagnoses Diagnosis Obstructive sleep apnea (adult) (pediatric)- Primary documented in this encounter Care Teams Production Grader Relationship Specialty Start Date End Date Sam Madrigal MD PCP - General 11/17/07 documented as of this encounter
--- OUTSIDE RECORDS SUMMARY | 2024-01-17 20:45 | XMS_ITS | Encounter Summary ---
Author Organization [facility] Address [address], [place] [address] Care Team Providers Care Forklift Mechanic Name Role Phone Sam Madrigal MD Primary Care Provider Unavaila ble Reason for Visit * Reason Comments EQUIPMENT EVALUATION Encounter Details Date Type Department Care Team (Late st Contact Info) Description 12/09/2023 10:30 AM CDT [facility] [address] [place] [address] Dylan Flaherty Social History Tobacco Use Types Packs/Day Years [...] as of this encounter Progress Notes * Dylan Flaherty - 12/09/2023 10:30 AM CDT Kang Mckoy was seen by [facility] on 12/09/2023, for a defective PAP device. This issue was Loud motor. The device was inspected and the issue was confirmed during the appointment. The ResMed unit was performing as expected via [employer]. The unit is not under warranty. Defective Serial numbers are: [id number]. Patient has not used his machine since July and did not need a loaner machine. He will wait to hear what the estimate is when it comes back. DM documented in this encounter Plan of Treatment Upcoming Encounters Date Type Department Care Team (Late st Contact Info) Description 02/19/2024 10:30 AM CDT Appointment Specialty Center [address] [place] [address]. [place] [address] Abby Maya MD [address] [place] [address] documented as of this encounter Visit Diagnoses Not on filedocumented in this encounter Care Teams Forklift Mechanic Relationship Specialty Start Date End Date Sam Madrigal MD PCP - General 11/17/07 documented as of this encounter
--- OUTSIDE RECORDS SUMMARY | 2024-01-17 20:45 | XMS_ITS | Clinical Summary ---
Author Organization [facility] Address [address] [place] [address] Care Team Providers Care Pathology Transcriptionist Name Role Phone Sam Madrigal MD Primary Care Provider [phone] Allergies No known active allergies Medications Medication Sig Dispensed Refills Start Date End Date Status HYDROcodone-acetamin ophen (NORCO) 5-325 mg oral tablet Take 1-2 tablets by mouth every 6 (six) hours as needed for Pain. 20 tablet 04/06/2019 Active cephalexin (KEFLEX) 500 mg oral capsule Take 1 capsule (500 mg) by mouth three times a day. 21 capsule 04/06/2019 Active Social History Tobacco Use Types Packs/Day Years Used Date Smoking Tobacco: Former Cigarettes Smokeless Tobacco: Never Alcohol Use Standard Drinks/Week Comments Not Currently 0 (1 standard drink = 0.6 oz pur e alcohol) Sex and Gender Information Value Date Recorded Sex Assigned at Not on file Gender Identity Not on file Sexual Orientation Not on file Plan of Treatment Health Maintenance Due Date Last Done Comments Colonoscopy 1945 Hepatitis C Screening 1945 Depression Assessment (PHQ-2) 1946 Zoster Vaccine (1 of 2) 1997 RSV 60+ Yrs (1 - 1-dose 60+ series) 2007 Pneumococcal 65+ (1 of 1 - PCV) 2012 Yearly Review of HCD 04/05/2020 04/06/2019 Adult Tetanus Booster 12/14/2020 12/14/2010 COVID-19 Vaccine ( - 2022- season) 2023 Influenza Vaccine (Season Ended) 2024 05/23/20, 05/25/2010 Care Teams Pathology Transcriptionist Relationship Specialty Start Date End Date Sam Madrigal MD [address] [address] PCP - General 04/06/19
--- OUTSIDE RECORDS SUMMARY | 2024-01-17 20:45 | XMS_ITS | Clinical Summary ---
Author Organization [facility] Address [address], [place] [address] Care Team Providers Care Pull Through Hooker Name Role Phone Sam Madrigal MD Primary Care Provider Unavaila ble Source Comments You are receiving this document as you are listed as the primary care provider,follow-up provider, or the patient has been referred to you for consultation.This is in compliance with the Medicare and[facility] Hospital[facility] EHR Incentive Program,which states Providers who transition their patient to another setting of careor provider of care or refers their patient to another provider of care shouldprovide summary care record for each transition of care or referral. [facility] Allergies No known active allergies Medications Medication Sig Dispensed Refills Start Date End Date Status NAPROXEN SODIUM OR Active aspirin 81 MG tabletIndications:Yani st pain, unspecified type Take 1 Tablet by mouth daily. 100 Tablet 3 12/30/2018 Active simvastatin (ZOCOR) 10 MG tabletIndications:Mix ed hyperlipidemia (HRC) Take 1 tablet by mouth once daily 90 Tablet 3 02/28/2021 Active amLODIPine (NORVASC) 5 MG tabletIndications:Ess ential hypertension (HRC) Take 1 Tablet by mouth daily. 90 Tablet 3 03/06/2021 Active atenolol (TENORMIN) 50 MG tabletIndications:Ess ential hypertension (HRC) Take 1 Tablet by mouth daily. 90 Tablet 3 03/06/2021 Active hydrOXYzine HCl (ATARAX) 25 MG tablet Take 1 Tablet (25 mg) by mouth three times a day as needed. Active clobetasol (TEMOVATE) 0.05 % ointmentIndications:D ermatitis APPLY TOPICALLY TO AREAS OF RASH 1-2 TIMES DAILY UNTIL CLEAR, REPEAT CYCLE WITH FLARES 180 g 6 06/18/2023 Active mycophenolate (CELLCEPT) 500 MG tabletIndications:Bul lous pemphigoid Take 1 Tablet (500 mg) by mouth two times a day. 180 Tablet 1 06/18/2023 06/17/2024 Active omeprazole (PRILOSEC) 20 MG capsuleIndications:Bu llous pemphigoid Take 1 Capsule (20 mg) by mouth daily. Take 1 hour before a meal. 90 Capsule 3 06/18/2023 06/17/2024 Active latanoprost (XALATAN) 0.005 % eye drop solution SMARTSIG:In Eye(s) 10/27/2023 Active lisinopril (ZESTRIL) 40 MG tablet Active Cetirizine HCl (ZYRTEC ALLERGY) 10 MG CAPS 12/27/2022 Active Active Problems Problem Noted Date Diagnosed Date Adenomatous polyp of colon 07/15/2019 Mixed hyperlipidemia 03/14/2017 CAREPLAN: ADVANCE DIRECTIVES/CODE STATUS 016 Overview: CAREPLAN: ADVANCE DIRECTIVES/CODE STATUS/see advance directive signed 03/07/16 under media tab Secondhand smoke exposure 07/07/2012 RAY (obstructive sleep apnea) 04/22/2012 Overview: RAY (severe, AHI 33, SpO2 82%) Sleep related hypoventilatio n/hypoxemia in conditions classifiable elsewhere 04/22/2012 Overview: Sleep hypoxemia (SpO2 82%) CPAP/BiPAP dependence 04/22/2012 Overview: CPAP dependence (11 cmH20) S/P right knee arthroscopy 03/24/2012 Benign prostatic hyperplasia 01/01/2012 Osteoarthritis of knee 12/15/2009 Overview: Osteoarthritis of Knee mod-severe R medial Hyperkalemia 12/08/2007 Essential hypertension 10/16/2002 Overview: Epic Resolved Problems Problem Noted Date Diagnosed Date Resolved Date DJD (Degenerative Joint Disease) of Knee 12/21/2006 12/15/2009 Overview: DJD of Right Knee Mixed hyperlipidemia 10/16/2002 017 Encounters Date Type Department Care Team Description 01/13/2024 10:30 AM CDT [facility] [address] [place] [address] Rohan Rooney 01/10/2024 Notes/Orders [facility] [address] [place] [address] Geovanna Headley Obstructive sleep apnea (adult) (pediatric) (Primary Dx) 01/09/2024 Notes/Orders [facility] [address] [place] [address] Geovanna Headley Obstructive sleep apnea (adult) (pediatric) (Primary Dx) 12/09/2023 10:30 AM CDT [facility] [address] [place] [address] Dylan Flaherty 11/28/2023 Notes/Orders [facility] [address] [place] [address] Hang Pena Obstructive sleep apnea (adult) (pediatric) (Primary Dx) 11/06/2023 10:40 AM CDT [facility] [address] [facility] [place] [address] Bullous pemphigoid 11/06/2023 10:00 AM CDT [facility] [address] [facility] [place] [address] Abby Maya MD Seborrheic keratoses (Primary Dx); Bullous pemphigoid; History of ongoing treatment with high-risk medication from Last 3 Months Immunizations Name Administration Dates Next Due Flu Vac (3+ yrs) 05/23/2011,05/25/2010 [id number] 08/11/2009,06/27/2009 Influenza IIV3 (Trivalent) F luzone Highdose, 65+ Yrs (05163) 05/05/2020,04/27/2019 Influenza IIV4 (Quadrivalent ) Fluzone, 65+ Yrs 05/05/2020 Influenza, Unspecified Formulation 05/27/2012 PCV13 (Prevnar) 04/27/2019 PPSV23 (Pneumovax) 02/29/2020, 8(Deferred: Patient Refused - until after surg 8-1-13) Pfizer Monovalent 12+ Purple Top 11/25/2020,04/0 03/2021 Td 10/16/2002 Tdap 12/14/2010 Family History Medical History Relation Name Comments Cerebrovascular Disease Mother at 45 from CVA Hyperlipidemia Mother at 45 Hypertension Brother 3 Probable Hyperlipidemia Other All three sib lings with very elevated lipids Hypertension Sister 2 Thromboembolic Disease Sister 3 Alcohol/Drug Abuse Negative Family History Asthma Negative Family History Cancer, Colon Negative Family History Cancer, Melanoma Negative Family History Cancer, Other Negative Family History Cancer, Prostate Negative Family History Coronary Artery Disease Negative Family History Father in 80s from CHF Diabetes, Type II Negative Family History Migraines Negative Family History Relation Name Status Comments Father (Age 83) Mother (Age 45) CVA Brother 1 Alive 1945 Brother 2 Alive 1954 Brother 3 Other Sister 1 Alive 1943 Sister 2 Sister 3 Son 1 Alive [facility], 1972 Son 2 Alive [place] [address] Social History Tobacco Use Types Packs/Day Years [...] on file Sexual Orientation Not on file Last Filed Vital Signs Vital Sign Reading Time Taken Comments Blood Pressure 140/75 03/06/2021 9:55 AM CDT Pulse 64 03/06/2021 9:21 AM CDT Temperature 36.4 ??C (97.5 ??F) 01/04/2021 4:44 PM CD T Respiratory Rate 17 07/07/2019 12:05 PM PATIENT DAY COORDINATOR Oxygen Saturation 95% 07/07/2019 12:05 PM PATIENT DAY COORDINATOR Inhaled Oxygen Concentration - - Weight 95.7 kg (211 lb) 03/06/2021 9:21 AM CDT Height 175.3 cm (5' 9) 01/04/2021 4:44 PM CDT Body Mass Index 31.16 01/04/2021 4:44 PM CDT Plan of Treatment Upcoming Encounters Date Type Department Care Team (Late st Contact Info) Description 02/19/2024 10:30 AM CDT [facility]ointment [facility] [address] [facility] [place] [address] Abby Maya MD [address] [place] [address] Health Maintenance Due Date Last Done Comments Medicare Annual Wellness Visit 01/05/2022 01/05/2021, 03/25/2019, 03/17/2018, Additional history exists Prediabetes: HGBA1C 03/06/2022 03/06/2021 COVID-19 Vaccine ( season) 2023 05/27/2023, 07/03/2022, 01/16/2022, Additional history exists Colonoscopy 07/07/2024 07/07/2019, 06/30/2009 DTaP/Tdap/Td (5 - Tdap) 12/12/2031 12/12/19 22, 12/14/2010, 10/16/2002, Additional history exists Hep C Screening (Preventive Services) Completed 03/17/2018 Pneumococcal 65+ Yrs Completed 02/29/2020, 04/27/20 19 Cholesterol Discontinued 03/02/2021, 09/2019, 03/25/2019, Additional history exists Zoster/Shingles Completed 04/23/2022, 02/05/2022 Influenza Completed 05/27/2023, 10/2021, 05/16/2021, Additional history exists HepA Aged Out No longer eligi ble based on patient's age to complete this topic HepB Aged Out No longer eligi ble based on patient's age to complete this topic Hib Aged Out No longer eligi ble based on patient's age to complete this topic IPV (Polio) Aged Out No longer eligi ble based on patient's age to complete this topic MCV4 Aged Out No longer eligi ble based on patient's age to complete this topic Procedures Procedure Name Priority Date/Time Associated Diagnosis Comments COMPLETE BLOOD COUNT-W/DIFF Routine 11/06/2023 10:30 AM CDT Bullous pemphigoid COMPREHENSIVE METABOLIC PANEL Routine 11/06/2023 10:30 AM CDT Bullous pemphigoid CBC AND DIFFERENTIAL PANEL Routine 11/06/2023 10:30 AM CDT Bullous pemphigoid HGB A1C Routine 03/06/2021 10:24 AM CDT Impaired fasting glucose LIPID PANEL & DIRECT LDL (IF NEEDED) Routine 03/02/2021 7:56 AM CDT Mixed hyperlipidemia COLONOSCOPY Routine 07/07/2019 11:16 AM PATIENT DAY COORDINATOR Screen for colon cancer HEPATITIS C ANTIBODY, WITH REFLEX Routine 03/17/2018 9:22 AM CDT Screening for viral disease from Last 3 Months or Most Recently Relevant to Health Maintenance Results * (ABNORMAL) Complete Blood Count-W/Diff (11/06/2023 [...] - 33.3 pg 11/06/2023 10:41 AM CDT [facility] MCHC 33.3 31.5 - 35.2 g/dL 11/06/2023 10:41 AM CDT [facility] RDW 13.0 11.9 - 15.5 % 11/06/2023 10:41 AM CDT [facility] Platelets 244 150 - 450 x10(9)/L 11/06/2023 10:41 AM CDT [facility] Neutrophil Absolute 4.7 1.7 - 7.0 10(9)/L 11/06/2023 10:41 AM CDT [facility] Lymphocyte Absolute 0.9(L) 1.0 - 4.8 10(9)/L 11/06/2023 10:41 AM CDT [facility] Monocyte Absolute 0.8 0.2 - 0.9 10(9)/L 11/06/2023 10:41 AM CDT [facility] Eosinophil Absolute 0.2 0.0 - 0.5 10(9)/L 11/06/2023 10:41 AM CDT [facility] Basophil Absolute 0.0 0.0 - 0.3 10(9)/L 11/06/2023 10:41 AM CDT [facility] Immature Granulocyte % 0.1 0.0 - 0.5 % 11/06/2023 10:41 AM CDT [facility] Blood Venipuncture / Unknown 11/06/2023 10:30 AM CDT 11/06/2023 10:30 AM CDT Abby Maya MD LAB_1 [facility] [address] [place] [address], [facility] * (ABNORMAL) CMP - Comprehensive Metabolic Panel (11/06/2023 10:30 AM CDT) Sodium 135(L) 136 - 145 mmol/L 11/06/2023 12:40 PM T [facility] Potassium 4.9 3.5 - 5.1 mmol/L 11/06/2023 12:40 PM [facility] Chloride 100 98 - 109 mmol/L 11/06/2023 12:40 PM [facility] CO2 25 20 - 29 mmol/L 11/06/2023 12:40 PM [facility] Anion Gap 10 7 - 16 mmol/L 11/06/2023 12:40 PM [facility] Calcium 9.5 8.4 - 10.4 mg/dL 11/06/2023 12:40 PM [facility] BUN 20 7 - 26 mg/dL 11/06/2023 12:40 PM [facility] Creatinine 1.16 0.73 - 1.18 mg/dL 11/06/2023 12:40 PM [facility] Alkaline Phosphatase 87 40 - 150 U/L 11/06/2023 12:40 PM [facility] AST (SGOT) 16 10 - 40 U/L 11/06/2023 12:40 PM [facility] ALT (SGPT) 14 <=55 U/L 11/06/2023 12:40 PM [facility] Bilirubin, Total 0.7 0.2 - 1.2 mg/dL 11/06/2023 12:40 PM [facility] Protein, Total 7.1 6.4 - 8.3 g/dL 11/06/2023 12:40 PM [facility] Albumin 3.7 3.5 - 5.0 g/dL 11/06/2023 12:40 PM [facility] Glucose 100 70 - 100 mg/dL 11/06/2023 12:40 PM [facility] Comment:The given reference range is for the fasting state. Non-fasting reference range for glucose is 70 - 180 mg/dL. GFR, Estimated >60 >60 mL/min/1. 73m2 11/06/2023 12:40 PM [facility] Hours Fasting 0.0 8 - 12 Hours 11/06/2023 12:40 PM [facility] Blood Venipuncture / Unknown 11/06/2023 10:30 AM [facility] 11/06/2023 10:30 AM CDT Abby Maya MD LAB_1 Performing Organization Address [facility]/ZIP Co de Phone Number [facility] [address] * Hgb A1C (03/06/2021 10:24 AM CDT) Hemoglobin A1C 5.5 <=5.6 % 03/06/2021 5:09 PM CDT [facility] Blood Venipuncture / Unknown 03/06/2021 10:24 AM CDT 03/06/2021 10:24 AM CDT Sam Madrigal MD LAB_1 Performing Organization Address [facility] Co de Phone Number [facility] [address] [phone] * Lipid Panel and Direct LDL(If Needed) (03/02/2021 7:56 AM CDT) Cholesterol 150 0 - 199 mg/dL 03/02/2021 11:43 AM CDT [facility] Triglyceride 82 <=149 mg/dL 03/02/2021 11:43 AM CDT [facility] HDL Cholesterol 51 >=40 mg/dL 03/02/2021 11:43 AM CDT [facility] LDL, Calculated 83 <130 mg/dL 03/02/2021 11:43 AM CDT [facility] Non HDL Chol, Calculated 99 <=159 mg/dL 03/02/2021 11:43 AM CDT [facility] Cholesterol/HDL Ratio 2.9 03/02/2021 11:43 AM CDT [facility] Hours Fasting 12 03/02/2021 11:43 AM CDT [facility] Blood Venipuncture / Unknown 03/02/2021 7:56 AM CDT 03/02/2021 7:56 AM CDT Sam Madrigal MD LAB_1 Performing Organization Address City/[facility]/ZIP Co de Phone Number [facility] [address] [place] [address], [facility] [phone] [facility] [id number] [place] [address], [facility] [phone] * COLONOSCOPY [[id number]] (07/07/2019 11:16 AM PATIENT DAY COORDINATOR) 07/07/2019 11:1 6 AM PATIENT DAY COORDINATOR Narrative [facility]) - 07/07/2019 11:45 AM PATIENT DAY COORDINATOR Instrument Name: 183 Indications: ? Screening for colorectal malignant neoplasm Providers: ? Emerson Clifford MD, Brandi Dowling LPN, ? Sury Dubon RN Referring MD: ?Sam Th Medicines: ? Midazolam 2 mg IV, Fentanyl 100 micrograms IV Complications: ? No immediate complications. Procedure: ? Pre-Anesthesia Assessment: ? - The risks and benefits of the procedure and the ? sedation options and risks were discussed with the ? patient. All questions were answered and informed ? consent was obtained. ? - Airway Examination: normal oropharyngeal airway and ? neck mobility. ? - ASA Grade Assessment: II - A patient with mild ? systemic disease. ? After I obtained informed consent, the scope was ? passed under direct vision. Prior to sedation, ? patient identity and procedure was reverified. ? Throughout the procedure, the patient's blood ? pressure, pulse, and oxygen saturations were ? monitored continuously. The PCF-H190L was introduced ? through the anus and advanced to the cecum, ? identified by appendiceal orifice and ileocecal ? valve. The patient tolerated the procedure well. The ? quality of the bowel preparation was good. The ? ileocecal valve and the appendiceal orifice were ? photographed. Findings: ? Multiple medium-mouthed diverticula were found in the sigmoid colon. ? A 7 mm polyp was found in the cecum. The polyp was sessile. The polyp ? was removed with a cold snare. Resection and retrieval were complete. ? Estimated blood loss: none. ? Internal hemorrhoids were found during retroflexion. The hemorrhoids ? were medium-sized. ? The exam was otherwise without abnormality. Moderate Sedation: ? Moderate (conscious) sedation was administered by the endoscopy nurse ? and supervised by the endoscopist. The following parameters were ? monitored: oxygen saturation, heart rate, blood pressure, respiratory ? rate, EKG, adequacy of pulmonary ventilation, and response to care. ? Total physician intraservice time was 12 minutes. Impression: ?- Diverticulosis in the sigmoid colon. ? - One 7 mm polyp in the cecum, removed with a cold ? snare. Resected and retrieved. ? - Internal hemorrhoids. ? - The examination was otherwise normal. Recommendation: ?- Await pathology results. Procedure Code(s): ?? --- Professional --- ? 51428, PT, Colonoscopy, flexible; with removal of ? tumor(s), polyp(s), or other lesion(s) by snare ? technique ? G0500, PT, Moderate sedation services provided by the ? same physician or other qualified health care ? professional performing a gastrointestinal endoscopic ? service that sedation supports, requiring the ? presence of an independent trained observer to assist ? in the monitoring of the patient's level of ? consciousness and physiological status; initial 15 ? minutes of intra-service time; patient age 5 years or ? older (additional time may be reported with 93665, as ? appropriate) Diagnosis Code(s): ?? --- Professional --- ? Z12.11, Encounter for screening for malignant ? neoplasm of colon ? K64.8, Other hemorrhoids ? D12.0, Benign neoplasm of cecum ? K57.30, Diverticulosis of large intestine without ? perforation or abscess without bleeding CPT copyright 2018 [employer]. All rights reserved. The codes documented in this report are preliminary and upon forensic toxicologist review may be revised to meet current compliance requirements. Attending Participation: Emerson Clifford MD 07/07/2019 11:45:26 AM This report has been signed electronically. Number of Addenda: 0 Note Initiated On: 07/07/2019 11:16 AM Procedure Note Emerson Clifford MD - 07/07/2019 Instrument Name: 183 Indications: Screening for colorectal malignant neoplasm Providers: Emerson Clifford MD, Brandi Dowling LPN, Sury Dubon RN Referring MD: Sam Madrigal Medicines: Midazolam 2 mg IV, Fentanyl 100 micrograms IV Complications: No immediate complications. Procedure: Pre-Anesthesia Assessment: - The risks and benefits of the procedure and the sedation options and risks were discussed with the patient. All questions were answered and informed consent was obtained. - Airway Examination: normal oropharyngeal airway and neck mobility. - ASA Grade Assessment: II - A patient with mild systemic disease. After I obtained informed consent, the scope was passed under direct vision. Prior to sedation, patient identity and procedure was reverified. Throughout the procedure, the patient's blood pressure, pulse, and oxygen saturations were monitored continuously. The PCF-H190L was introduced through the anus and advanced to the cecum, identified by appendiceal orifice and ileocecal valve. The patient tolerated the procedure well. The quality of the bowel preparation was good. The ileocecal valve and the appendiceal orifice were photographed. Findings: Multiple medium-mouthed diverticula were found in the sigmoidcolon. A 7 mm polyp was found in the cecum. The polyp was sessile. The polyp was removed with a cold snare. Resection and retrieval were complete. Estimated blood loss: none. Internal hemorrhoids were found during retroflexion. The hemorrhoids were medium-sized. The exam was otherwise without abnormality. Moderate Sedation: Moderate (conscious) sedation was administered by the endoscopy nurse and supervised by the endoscopist. The following parameters were monitored: oxygen saturation, heart rate, blood pressure, respiratory rate, EKG, adequacy of pulmonary ventilation, and response to care. Total physician intraservice time was 12 minutes. Impression: - Diverticulosis in the sigmoid colon. - One 7 mm polyp in the cecum, removed with a cold snare. Resected and retrieved. - Internal hemorrhoids. - The examination was otherwise normal. Recommendation: - Await pathology results. Procedure Code(s): --- Professional --- 85857, PT, Colonoscopy, flexible; with removal of tumor(s), polyp(s), or other lesion(s) by snare technique G0500, PT, Moderate sedation services provided by the same physician or other qualified health rn care transition performing a gastrointestinal endoscopic service that sedation supports, requiring the presence of an independent trained observer to assist in the monitoring of the patient's level of consciousness and physiological status; initial 15 minutes of intra-service time; patient age 5 years or older (additional time may be reported with 16564, as appropriate) Diagnosis Code(s): --- Professional --- Z12.11, Encounter for screening for malignant neoplasm of colon K64.8, Other hemorrhoids D12.0, Benign neoplasm of cecum K57.30, Diverticulosis of large intestine without perforation or abscess without bleeding CPT copyright 2018 [employer]. All rights reserved. The codes documented in this report are preliminary and upon forensic toxicologist review may be revised to meet current compliance requirements. Attending Participation: Emerson Clifford MD 07/07/2019 11:45:26 AM This report has been signed electronically. Number of Addenda: 0 Note Initiated On: 07/07/2019 11:16 AM Emerson Clifford MD [facility] [place], [place] * Hepatitis C Antibody, with Reflex (03/17/2018 9:22 AM CDT) Anti-HCV Negative (Non Reactive) [facility] Comment: Antibodies to HCV not detected. Does not exclude the possibility of exposure to HCV. 03/17/2018 9:22 AM CDT 03/17/2018 9:23 AM CDT Narrative [facility] - 03/17/2018 3:53 PM CDT Performed at [facility], [address] [place] [address] ??[id number] Sam Madrigal MD LAB_1 Performing Organization Address City/[facility]/ZIP Co de Phone Number [facility] [phone] from Last 3 Months or Most Recently Relevant to Health Maintenance Care Teams Pull Through Hooker Relationship Specialty Start Date End Date Sam Madrigal MD PCP - General 11/17/07
--- OUTSIDE RECORDS SUMMARY | 2024-01-17 20:45 | XMS_ITS | Encounter Summary ---
Author Organization [facility] Address [address] [place] [address] Care Team Providers Care Sql Programmer Name Role Phone Sam Madrigal MD Primary Care Provider Unavaila ble Encounter Details Date Type Department Care Team (Late st Contact Info) Description 07/07/2019 Consent for Procedure/Treatme nt [facility] Department INFORMED CONSENT RECORD Social History Tobacco Use Types Packs/Day Years [...] Appointment [facility] [address] [place] [address]. [place] [address] Abby Maya MD [address] [place] [id number] documented as of this encounter Visit Diagnoses Not on filedocumented in this encounter Care Teams Sql Programmer Relationship Specialty Start Date End Date Sam Madrigal MD PCP - General 11/17/07 documented as of this encounter
--- OUTSIDE RECORDS SUMMARY | 2024-01-17 20:45 | XMS_ITS | Encounter Summary ---
Author Organization [facility] Address [address] [place] [address] Care Team Providers Care Hand Router Operator Name Role Phone Sam Madrigal MD Primary Care Provider Unavaila ble Encounter Details Date Type Department Care Team (Late st Contact Info) Description 06/25/2017 Correspondence None No Primary/Referring, Phy HME EQUIPMENT MARINE DIESEL TECHNICIAN TICKET CPAP Social History Tobacco Use Types Packs/Day Years Used Date Smoking Tobacco: Former Cigarettes 1.5 20 0 11/29/1964 - 11/29/1984 Smokeless Tobacco: Never Alcohol Use Standard Drinks/Week Comments Yes 10 (1 standard drink = 0.6 oz pu re alcohol) Sex and Gender Information Value Date Recorded Sex Assigned at Not on file Gender Identity Not on file Sexual Orientation Not on file documented as of this encounter Plan of Treatment Upcoming Encounters Date Type Department Care Team (Late st Contact Info) Description 02/19/2024 10:30 AM CDT [facility]ointment [facility] [address] [facility] [place] [address] Abby Maya MD [address] [place], [place] [id number] documented as of this encounter Visit Diagnoses Not on filedocumented in this encounter Care Teams Hand Router Operator Relationship Specialty Start Date End Date Sam Madrigal MD PCP - General 11/17/07 documented as of this encounter
--- OUTSIDE RECORDS SUMMARY | 2024-01-17 20:45 | XMS_ITS | Referral Summary ---
Author Organization [facility] Address [address] [place] [address] Care Team Providers Care Spray Machine Operator Name Role Phone Sam Madrigal MD Primary Care Provider [phone] Allergies No known active allergies Medications Medication [...] Orientation Not on file Plan of Treatment Not on file Care Teams Spray Machine Operator Relationship Specialty Start Date End Date Sam Madrigal MD [address] [place] [address] PCP - General 04/06/19
--- OUTSIDE RECORDS SUMMARY | 2024-01-17 20:45 | XMS_ITS | Encounter Summary ---
Author Organization [facility] Address [address], [place] [address] Care Team Providers Care Medical Coding Specialist Name Role Phone Sam Madrigal MD Primary Care Provider Unavaila ble Reason for Visit * Reason Comments EQUIPMENT EVALUATION Picking up loaner Encounter Details Date Type Department Care Team (Late st Contact Info) Description 01/13/2024 10:30 AM CDT [facility] [address] [place] [address] Rohan Rooney Social History Tobacco Use Types Packs/Day Years [...] as of this encounter Progress Notes * Rohan Rooney - 01/13/2024 10:30 AM CDT [facility], for a defective PAP device. This issue was Loud motor. The device was inspected and the issue was confirmed during the appointment. The [employer] unit was performing as expected via [employer]. The unit is not under warranty. The unit was sent in to [facility] and the cost to repair exceeded the replacement cost. We are going to replace the device but need current compliance for ongoing supplies before the replacement. Defective Serial numbers are: [id number] The defective device was replaced by a loaner device received by the patient. Serial numbers for the loaner are [id number]. The loaner unit had 1,227 hours. The $250.00 deposit for the loanerwas taken via [employer] and deposit is set to run on 04/14/2024. Pressure settings on the loaner were Auto CPAP with a pressure of [id number]. The patient will be using the loaner to achieve compliance so we can get an auth for resupply. MARIE documented in this encounter Plan of Treatment Upcoming Encounters Date Type Department Care Team (Late st Contact Info) Description 02/19/2024 10:30 AM CDT Appointment [facility] [address] [place] [address]. [place] [address] Abby Maya MD [address] [place] [address] documented as of this encounter Visit Diagnoses Not on filedocumented in this encounter Care Teams Medical Coding Specialist Relationship Specialty Start Date End Date Sam Madrigal MD PCP - General 11/17/07 documented as of this encounter
--- OUTSIDE RECORDS SUMMARY | 2024-01-17 20:45 | XMS_ITS | Encounter Summary ---
Author Organization [facility] Address [address] [place] [address] Care Team Providers Care Cement Sprayer Helper Name Role Phone Sam Madrigal MD Primary Care Provider Unavaila ble Encounter Details Date Type Department Care Team (Late Contact Info) Description 11/04/2018 Correspondence None Inactive, Provider PAP EQUIPMENT PICK-UP TICKET Social History Tobacco Use Types Packs/Day Years [...] [facility] [address] [facility] [place] [address] Abby Maya MD [address] [place] [address] documented as of this encounter Visit Diagnoses Not on filedocumented in this encounter Care Teams Cement Sprayer Helper Relationship Specialty Start Date End Date Sam Madrigal MD PCP - General 11/17/07 documented as of this encounter
--- OUTSIDE RECORDS SUMMARY | 2024-01-17 20:45 | XMS_ITS | Encounter Summary ---
Author Organization [facility] Address [address] [place] [address] Care Team Providers Care Private Wealth Advisor Name Role Phone Sam Madrigal MD Primary Care Provider Unavaila ble Encounter Details Date Type Department Care Team (Latest Contact Info) Description 03/25/2019 Flowsheet External to Flow Sheet, Provider BLOOD PRESSURE Social History Tobacco Use Types Packs/Day Years Used Date Smoking Tobacco: Former Cigarettes 1.5 20 0 11/29/1964 - 11/29/1984 Smokeless Tobacco: Never Alcohol Use Standard Drinks/Week Comments Yes 10 (1 standard drink = 0.6 oz pu re alcohol) PHQ-2 Answer Date Recorded PHQ-2 Score 0 03/25/2019 Sex and Gender Information Value Date Recorded Sex Assigned at Not on file Gender Identity Not on file Sexual Orientation Not on file documented as of this encounter Plan of Treatment Upcoming Encounters Date Type Department Care Team (Late st Contact Info) Description 02/19/2024 10:30 AM CDT Appointment [facility] [address] [facility] [address] [place] [address]. [place] [address] Abby Maya MD [address] [place] [address] documented as of this encounter Visit Diagnoses Not on filedocumented in this encounter Care Teams Private Wealth Advisor Relationship Specialty Start Date End Date Sam Madrigal MD PCP - General 11/17/07 documented as of this encounter
--- OUTSIDE RECORDS SUMMARY | 2024-01-17 20:45 | XMS_ITS | Data Portability ---
Author Organization [facility] [place] Address [address] [place] [address] [place] [address] Care Team Providers Care Supervisor Contingents Name Role Phone ALEXANDRA MI Primary Care Provider Assessment Encounter Date Assessment Date Assessment LastModified by Organization Details LastModified Time 09/08/2022 09/08/2022 09/08/2022 -COVID-19 nasal swab specimen sent to [facility] -Pt was instructed to call tomorrow to obtain Covid-19 results. he understands that we do not call to give results. he is to call - Option #1. [email or web address] Not available 09/08/2022 09:13:02 Plan of Treatment Reminders Order Date Submit Date Provider Last Modified By Organization Details Last Modified Time Details Appointments None recorded. Lab None recorded. Referral None recorded. Procedures None recorded. Surgeries None recorded. Imaging None recorded. Medication Orders azithromyc in 250 mg tablet 2022 023 [facility], [address] [place] [place] [address], [address], 3 09:15:15 fluticason e propionate 50 mcg/actuat ion nasal spray,susp ension 2022 023 [facility], [address] [place]. [place] [facility] [address], [place], [address], 3 09:15:15 Zyrtec 10 mg tablet 2022 023 [facility], [address] [address] [place] [address], [address], 09:20:32 Patient TargetsNo targets recorded. Patient Instructions Encounter Date Encounter Id Patient Instructions Last Modified By Organization Details Last Modified Time 09/08/2022 [id number] Acute Sinusitis: Care Instructions [email or web address] Not available 09/08/2022 09:11:38 saline nasal washes: care instructions [email or web address] Not available 09/08/2022 09:11:38 hand-washing: ca re instructions Not available 09/08/2022 09:11:38 coronavirus (covid-19): care instructions [email or web address] Not available 09/08/2022 09:11:38 high blood pressure: care instructions [email or web address] Not available 09/08/2022 09:11:38 low sodium diet (2,000 milligram): care instructions [email or web address] Not available 09/08/2022 09:11:38 upper respirator y infection (cold): care instructions [email or web address] Not available 09/08/2022 09:11:38 -Long discussion with patient about the strong likelihood of illness being a viral infection or allergy mediated sinus congestion. Pt is concerned that he is developing into a bacterial infection and requesting an antibiotic be prescribed today. Will prescribe but instructed patient to hold antibiotic for another week as viral infections are self limiting, need to run its course, and antibiotics do not shorten the illness duration. Educated pt to ensure adequate hydration with non-caffeinated clear liquids (water, juice, decaf tea). Sleep elevated to prevent aspiration of post nasal drainage, aid coughing and easier breathing. Rest your body to allow your immune system to work for you to help rid of the infection. Discussed OTC mucinex and antihistamines for symptom relief. If develops fever/chills, productive cough, CP/SOB, lightheartedness, to RTC for re-evaluation. Pt verbalized understanding. Pt was instructed to go to the ER or call 911 if develops SOB, chest tightness, fever 100.5f, chills, CP, upper back pain, or any other symptoms. pt verbalized understanding Recommendation Regarding the Use of Cloth Face Coverings, Especially in Areas of Significant Community-Based Transmission Other Languages Print Page mask icon Use of Cloth Face Coverings to Help Slow the Spread of COVID-19 Learn More CDC continues to study the spread and effects of the novel coronavirus across the [place]. We now know from recent studies that a significant portion of individuals with coronavirus lack symptoms (? asymptomatic? ) and that even those who eventually develop symptoms (? pre-symptomatic? ) can transmit the virus to others before showing symptoms. This means that the virus can spread between people interacting in close proximity? for example, speaking, coughing, or sneezing? even if those people are not exhibiting symptoms. In light of this new evidence, CDC recommends wearing cloth face coverings in public settings where other social distancing measures are difficult to maintain (e.g., grocery stores and pharmacies) especially in areas of significant community-based transmission. It is critical to emphasize that maintaining 6-feet social distancing remains important to slowing the spread of the virus. CDC is additionally advising the use of simple cloth face coverings to slow the spread of the virus and help people who may have the virus and do not know it from transmitting it to others. Cloth face coverings fashioned from household items or made at home from common materials at low cost can be used as an additional, voluntary public health measure. The cloth face coverings recommended are not surgical masks or N-95 respirators. Those are critical supplies that must continue to be reserved for healthcare workers and other medical first responders, as recommended by current CDC guidance. This recommendation complements and does not replace the President? s Coronavirus Guidelines for [place], 30 Days to Slow the Spread external icon, which remains the cornerstone of our national effort to slow the spread of the coronavirus. CDC will make additional recommendations as the evidence regarding appropriate public health measures continues to develop. What is social distancing? Social distancing, also called ? physical distancing,? means keeping space between yourself and other people outside of your home. To practice social or physical distancing: Stay at least 6 feet (about 2 arms? length) from other people Do not gather in groups Stay out of crowded places and avoid mass gatherings In addition to everyday steps to prevent COVID-19, keeping space between you and others is one of the best tools we have to avoid being exposed to this virus and slowing its spread locally and across the country and world. Limit close contact with others outside your household in indoor and outdoor spaces. Since people can spread the virus before they know they are sick, it is important to stay away from others when possible, even if you? or they? have no symptoms. Social distancing is especially important for people who are at higher risk for severe illness from COVID-19. Many people have personal circumstances or situations that present challenges with practicing social distancing to prevent the spread of COVID-19. [email or web address] Not available 09/08/2022 09:10:05 PLAN 1. Pt was instructed to call tomorrow to obtain Covid-19 results. Pt understands that we do not call to give results. PT is to call - Option #1. 1. Patient to follow up with PCP or RTC within the next 2-3 days or sooner if symptoms persist or worsen 2. Patient instructed [facility] open M-F 8am-8pm and Sat/Sun 8am-5pm, and [facility] is open everyday from 8Am- 5 PM. Patient should return for any question(s)/concern (s)/evaluation(s) 3. Patient directed to CALL 911/and/or GO IMMEDIATELY to the emergency dept if symptoms worsen 4. Discussed natural and expected course of this diagnosis and need to alert me if symptoms do not follow expected course, or if any worse. * 1. Maintain good hydration - 8-10 glasses of fluid /day 2. Air humidifier qhs 3. Saline Sinus Rinse BID 4. Claritin/Zyrtec prn perennial allergic response 5. F/U in office should symptoms warrant 6. Discussed natural and expected course of this diagnosis and need to alert PCP if symptoms do not follow expected course, or if any worse. [email or web address] Not available 09/08/2022 09:10:52 Reason for Referral None Reported. Problems Name Status Onset Date Resolution Date Notes Provider Name and Address Organization Details Recorded Time Hyperlipidemia Active 09/08/19 [facility] 09/08/2022 08:53:08 Hypertensive disorder Active 09/08/19 [facility] [place] 09/08/2022 08:53:12 Problem Notes None recorded. Procedures Surgical History Date Name Laterality Status Provider Name and Address Organization Details Recorded Time LEFT Knee Replacement completed [facility] [place] 09/08/2022 08:54:06 RIGHT Knee Replacement completed [facility] [place] 09/08/2022 08:54:14 Imaging Results None recorded. Procedure Notes None recorded. Medical Equipment None Reported. Allergies No known drug allergies Medications Name Sig Start Date Stop Date Status Note LastModified by Organization Details LastModified Time Prescriptio n - Renewal active Not Available Not Available Not Available nystatin 100,000 unit/mL oral suspension USE 1ML ORALLY EVERY DAY FOR 2 WEEKS (ADMINIST ER 1/2 OF DOSE ON EACH SIDE OF MOUTH) 09/08 completed Not Available Not Available Not Available cetirizine 10 mg tablet TAKE 1 TABLET BY MOUTH ONCE DAILY active Not Available Not Available No t Available azithromyci n 250 mg tablet TAKE 2 TABLETS BY MOUTH ON DAY 1, AND THEN TAKE 1 TABLET BY MOUTH ONCE A DAY ON DAY 2 THROUGH DAY 5 active Not Available Not Available No t Available valacyclovi r 1 gram tablet TAKE 1 TABLET BY MOUTH THREE TIMES DAILY FOR 7 DAYS 09/08 completed Not Available Not Available Not Available simvastatin 10 mg tablet TAKE 1 TABLET BY MOUTH AT BEDTIME active Not Available Not Available No t Available amlodipine 5 mg tablet TAKE 1 TABLET BY MOUTH ONCE DAILY active Not Available Not Available No t Available lisinopril 30 mg tablet TAKE 1 TABLET BY MOUTH ONCE DAILY active Not Available Not Available No t Available fluticasone propionate 50 mcg/actuati on nasal spray,suspe nsion USE 1 SPRAY(S) IN EACH NOSTRIL TWICE DAILY FOR 7 DAYS active Not Available Not Available No t Available atenolol 50 mg tablet TAKE 1 TABLET BY MOUTH ONCE DAILY active Not Available Not Available No t Available BinaxNOW COVID-19 Ag Self Test kit Use as Directed on the Package 09/08 completed Not Available Not Available Not Available Vitals Date Recorded Heart rate Body height Respiratory rate Body temperature Body mass index (BMI) Body weight Oxygen saturation Oxygen saturation in Arterial blood by Pulse oximetry Systolic blood pressure Diastolic blood pressure Provider Name and Address Organization Details Last Updated DateTime 3 61 /min 177.8 cm 18 /min 97.6 [degF] 29.4 kg/m2 32835.4 4 g 97 % 97 % 143 mm[Hg] 65 mm[Hg] RANDA ARPITA [facility] 3 08:51:02 Social History Question Answer Notes LastModified by Organizat ion Details LastModified Time Tobacco Smoking Status Former Smoker quit 1984 RANDA ARPITA [facility] 09/08/2022 08:53:57 What Is Your Level Of Alcohol Consumption? Moderate [email or web address] Information not available 09/08/2022 How Many Years Have You Smoked Tobacco? 20 1 Pack A Day [email or web address] Information not available 09/08/2022 Sex: Male Functional Status None recorded. Mental Status None recorded. Family History Relationship Description Onset Age of this Age Resolved Age Notes Notes:mom/dad Medical History Condition Response Allergies, Hayfever, Polen, Tree, Cats, Dogs, Dust or Mite N Gastrointestinal Problem, Peptic Ulcer D isease(Stomach Ulcer) N Heart Disease, Acute Myocardial Infarcti on N Infectious Disease, MRSA exposure N Psychiatric Disorder, Depression, Anxiet y N DIAGNOSTIC STUDY: Mammogram N Muscle Disorder, Fibromyalgia N Blood Diseases, Hemophilia N Cancer, Skin, Melanoma, Squamous Cell, B violet Cell N Surgical Complications, Anesthesia N Hospitalizations or Surgery (most recent ) N Lung Disease, COPD , Emphysema N Obesity N DIAGNOSTIC STUDY: Ultrasound N Gastrointestinal Problem, Constipation N Kidney Disease, Hematuria(Blood in urine ) N Psychiatric Disorder, Schizophrenia N Heart Disease, Congestive Heart Disease N Anemia, Iron Deficiency N Cancer, Lymphoma N Blood Diseases, Hemochromatosis N DIAGNOSTIC STUDY: CT Scan N Infectious Disease, History of Tuberculo sis N Anemia, Sickle Cell Trait N Lung Disease, Asthma N Neurological Disorder, Stroke/TIA N Heart Disease, Heart Murmur N DIAGNOSTIC STUDY: Stress Test N Gastrointestinal Problem, Irritable Francisco Javier l Syndrome N Ear Nose and Throat (ENT), Meniere's dis ease N Cancer, Prostate, Bladder N Cancer, Cervical or Ovarian N DIAGNOSTIC STUDY: PET Scan N Lung Disease, Pulmonary Embolism N DIAGNOSTIC STUDY: Immunocap (Allergy Keren ting) N DIAGNOSTIC STUDY: Colonoscopy N Vision Problem, Glaucoma N Psychiatric Disorder, Bipolar Disease N Gastrointestinal Problem, Gall Bladder, GERD-Reflux N DIAGNOSTIC STUDY: Bone Density N Genitourinary Problems, BPH, incontinenc e, frequency N Vision Problem, Macular Degeneration N Eating Disorder, Anorexia, Bulimia N Vascular disorder, Varicosities N Infectious Disease, Chicken Pox, Shingle s, Herpes Zoster N Ear Nose and Throat (ENT), Nasal Polyps, Chronic Sinusitis N Bone & Joint Disorder, Arthritis, RHEUMA TOID N Cancer, Breast N Thyroid Disorder, Hyperthyroidism N Blood Diseases, Leukemia N Defects or Inherited Disease N Vision Problem, Others N Bone & Joint Disorder, Arthritis, OSTEOA RTHRITIS N DIAGNOSTIC STUDY: EKG N Heart Disease, Hypertension Y Skin Disease, Eczema, Psoriasis N DIAGNOSTIC STUDY: Echo-cardiogram N Neurological Disorder, Headaches, Migrai melinda N Psychiatric Disorder, ADD/ADHD N Gastrointestinal Problem, Hepatitis, Padmini vated Liver Enzymes, Liver Disease N Epilepsy/Seizure Disorder N DIAGNOSTIC STUDY: Cystoscopy N DIAGNOSTIC STUDY: Bone Scan N Bladder, Prostate or Kidney Problems N Kidney Disease, Kidney Stones N DIAGNOSTIC STUDY: MRI (Magnetic Resonanc e Imaging) N DIAGNOSTIC STUDY: Sleep Study N Bone & Joint Disorder, Gout N DIAGNOSTIC STUDY: Endoscopy N Heart Disease, Atrial Fibrillation/Atria l Flutter N DIAGNOSTIC STUDY: Electromyography (EMG) N Heart Disease, High Cholesterol Y Infectious Disease, AIDS, HIV, Hep-C, He p-B N Gastrointestinal Problem, Difficulty Swa llowing, Esophageal Stricture N Diabetes N Ear Nose and Throat (ENT), Hard of Heari ng N DIAGNOSTIC STUDY: XRs N Blood Diseases, Thrombophilia N Abuse/Domestic Violence N Heart Disease, Coronary Artery Disease N Gastrointestinal Problem, Diverticulosis /Diverticulitis/Polyps N Psychiatric Disorder, Obscessive Compuls vivek Disorder N Thyroid Disorder, Hypothyroidism N Bone & Joint Disorder, Osteopenia/Osteop orosis N Anemia, Sickle Cell N Surgical Complications, Blood Transfusio n N Past Encounters Encounter ID Performer Location Encounter Start Date Encounter Closed Date Diagnosis/Indication Diagnosis SNOMED-CT Code [id number] EULOGIO JAY NP [facility] [address] [place] [address] 09/08/2022 08:50:33 09/08/2022 09:23:43 Risk of exposure to communicable disease 030086438 Essential hypertension 80626707 Acute uppe r respiratory infection 33916507 Acute pharyngitis 410597 003 Acute sinusitis 77265471 Health Concerns Section Related Observation LastModified by Organization Detai ls LastModified Time None Recorded Concern Status LastModified by Organization Details LastModified Time None Recorded Advance Directives Directive None Recorded Payers Encounter Date Sequence Insurance Name Policy Number Policy Gutierrez Covered Member ID Gutierrez Member ID Guarantor Name 09/08/2022 1 BCBS-ID: [facility] [id number] [facility] [employer] [id number] [address] [employer] Notes Date Note Type Note Provider Name and Address Organization Details Recorded Time 09/08/2022 text/html HPI Notes: 77 yo male PT c/o running nose, stuffy nose, fatigue, sore throat that started on 09/05/2022 Pt reports taking otc medication w/no improvement. Pt reports hx of similar symptoms at least once yearly during the same time of the year. Denies White patches or pus on tonsils, difficulty swallowing solids or liquid, fever, chills, loss of taste or smell, SOB, CP. UTD w/ covid-19 vaccine and booster, [place] [address], [place], [address], [facility] 09/08/2022 09:14:34
--- OUTSIDE RECORDS SUMMARY | 2024-01-17 20:46 | XMS_ITS | Encounter Summary ---
Author Organization [facility] Address [address] [place] [address] Care Team Providers Care Lab Assistant Name Role Phone Sam Madrigal MD Primary Care Provider Unavaila ble Encounter Details Date Type Department Care Team (Late st Contact Info) Description 06/06/2015 Correspondence None No Primary/Referring, Phy HME EQUIPMENT VICE PRESIDENT OF HUMAN RESOURCES TICKET Social History Tobacco Use Types Packs/Day Years Used Date Smoking Tobacco: Former Cigarettes 1.5 20 0 11/29/1964 - 11/29/1984 Smokeless Tobacco: Never Alcohol Use Standard Drinks/Week Comments Yes 8.3 (1 standard drink = 0.6 oz p ure alcohol) Sex and Gender Information Value Date Recorded Sex Assigned at Not on file Gender Identity Not on file Sexual Orientation Not on file documented as of this encounter Plan of Treatment Upcoming Encounters Date Type Department Care Team (Late Contact Info) Description 02/19/2024 10:30 AM CDT Appointment [facility] [address] [facility] [place] [address]. [place] [address] Abby Maya MD [address] [place] [phone] documented as of this encounter Visit Diagnoses Not on filedocumented in this encounter Care Teams Lab Assistant Relationship Specialty Start Date End Date Sam Madrigal MD PCP - General 11/17/07 documented as of this encounter
--- OUTSIDE RECORDS SUMMARY | 2024-01-17 20:46 | XMS_ITS | Encounter Summary ---
Author Organization [facility] Address [address] [place] [address] Care Team Providers Care Poultry Veterinarian Name Role Phone Sam Madrigal MD Primary Care Provider Unavaila ble Encounter Details Date Type Department Care Team (Late st Contact Info) Description 01/17/2012 Correspondence None Inactive, Provider PAP EQUIPMENT PICK-UP [...] as of this encounter Progress Notes * Inactive, Provider - 01/17/2012 12:00 AM CDT documented in this encounter Plan of Treatment Upcoming Encounters Date Type Department Care Team (Late Contact Info) Description 02/19/2024 10:30 AM CDT Appointment [facility] [address] [place] [address]. [place] [address] Abby Maya MD [address] [place] [address] documented as of this encounter Visit Diagnoses Not on filedocumented in this encounter Care Teams Poultry Veterinarian Relationship Specialty Start Date End Date Sam Madrigal MD PCP - General 11/17/07 documented as of this encounter
--- OUTSIDE RECORDS SUMMARY | 2024-01-17 20:46 | XMS_ITS | Encounter Summary ---
Author Organization [facility] Address [address] [place] [address] Care Team Providers Care Marine Electrician Apprentice Name Role Phone Sam Madrigal MD Primary Care Provider Unavaila ble Encounter Details Date Type Department Care Team (Late st Contact Info) Description 03/31/2015 Correspondence None No Primary/Referring, Phy HME EQUIPMENT POT PULLER TICKET Social History Tobacco Use Types Packs/Day [...] CDT Appointment [facility] [address] [place] [address]. [place] [address] Abby Maya MD [address] [place] [address] [phone] documented as of this encounter Visit Diagnoses Not on filedocumented in this encounter Care Teams Marine Electrician Apprentice Relationship Specialty Start Date End Date Sam Madrigal MD PCP - General 11/17/07 documented as of this encounter
--- OUTSIDE RECORDS SUMMARY | 2024-01-17 20:46 | XMS_ITS | Encounter Summary ---
Author Organization Replaced by [facility] Address [address] [address] Care Team Providers Care Court Transcriber Name Role Phone Sam Madrigal MD Primary Care Provider Williea ble Encounter Details Date Type Department Care Team (Latest Contact Info) Description 01/26/2013 Flowsheet External to External, [place] [address] BP Social History Tobacco Use Types Packs/Day [...] as of this encounter Progress Notes * External, Provider - 01/26/2013 12:00 AM CDT documented in this encounter Plan of Treatment Upcoming Encounters Date Type Department Care Team ( Contact Info) Description 02/19/2024 10:30 AM CDT Appointment [facility] [address] [facility] [address] [place] [address]. [place] [address] Abby Maya MD [address] [place] [address] documented as of this encounter Visit Diagnoses Not on filedocumented in this encounter Care Teams Court Transcriber Relationship Specialty Start Date End Date Sam Madrigal MD PCP - General 11/17/07 documented as of this encounter
--- OUTSIDE RECORDS SUMMARY | 2024-01-17 20:46 | XMS_ITS | Encounter Summary ---
Author Organization [facility] Address [address] [address] Care Team Providers Care Data Entry Associate Name Role Phone Sam Madrigal MD Primary Care Provider Unavaila ble Encounter Details Date Type Department Care Team (Latest Contact Info) Description 03/29/2015 Flowsheet External to External, [place] [address] HOME BP CHECKS Social History Tobacco Use Types Packs/Day Years [...] Appointment [facility]ty [facility] [address] [facility] [address] Abby Maya MD [address] [place] [address] documented as of this encounter Visit Diagnoses Not on filedocumented in this encounter Care Teams Data Entry Associate Relationship Specialty Start Date End Date Sam Madrigal MD PCP - General 11/17/07 documented as of this encounter
--- OUTSIDE RECORDS SUMMARY | 2024-01-17 20:46 | XMS_ITS | Encounter Summary ---
Author Organization [facility] Address [address] [place] [address] Care Team Providers Care Garage Supervisor Name Role Phone Sam Madrigal MD Primary Care Provider Unavaila ble Encounter Details Date Type Department Care Team (Late Contact Info) Description 06/21/2014 Correspondence None No Primary/Referring, Phy EQUIPMENT ESTIMATOR AND DRAFTER TICKET Social History Tobacco Use Types Packs/Day [...] Appointment [facility]ty [facility] 401 [place] [address] Abby Maya MD 401 [place] [address] documented as of this encounter Visit Diagnoses Not on filedocumented in this encounter Care Teams Garage Supervisor Relationship Specialty Start Date End Date Sam Madrigal MD PCP - General 11/17/07 documented as of this encounter
--- OUTSIDE RECORDS SUMMARY | 2024-01-17 20:46 | XMS_ITS | Encounter Summary ---
Author Organization [facility] Address [address] [place] [address] Care Team Providers Care Video Game Developer Name Role Phone Sam Madrigal MD Primary Care Provider Unavaila ble Encounter Details Date Type Department Care Team (Late st Contact Info) Description 02/21/2015 Correspondence [facility] [address] [place] [address]. [place] [address] Sam Madrigal MD RX CLARIFICATION NEEDED Social History Tobacco Use Types Packs/Day Years [...] Appointment [facility] [address] [facility] [place] [address]. [place] [address] Abby Maya MD [address] [place] [address] documented as of this encounter Visit Diagnoses Not on filedocumented in this encounter Care Teams Video Game Developer Relationship Specialty Start Date End Date Sam Madrigal MD PCP - General 11/17/07 documented as of this encounter
--- OUTSIDE RECORDS SUMMARY | 2024-01-17 20:46 | XMS_ITS | Encounter Summary ---
Author Organization [facility] Address [address] [place] [address] Care Team Providers Care Manager Scientific Name Role Phone Sam Madrigal MD Primary Care Provider Unavaila ble Encounter Details Date Type Department Care Team (Late Contact Info) Description 01/16/2012 Consent for Procedure/Treatme nt [facility] Department INFORMED CONSENT FOR SLEEP/AUDIO/VIDEO Social History Tobacco Use Types Packs/Day Years [...] as of this encounter Progress Notes * [facility], PROVIDER - 01/16/2012 12:00 AM CDT documented in this encounter Plan of Treatment Upcoming Encounters Date Type Department Care Team (Late Contact Info) Description 02/19/2024 10:30 AM CDT Appointment [facility] [address] [place] [address]. [place] [address] Abby Maya MD 401 [place] [address] documented as of this encounter Visit Diagnoses Not on filedocumented in this encounter Care Teams Manager Scientific Relationship Specialty Start Date End Date Sam Madrigal MD PCP - General 11/17/07 documented as of this encounter
--- OUTSIDE RECORDS SUMMARY | 2024-01-17 20:46 | XMS_ITS | Encounter Summary ---
Author Organization [facility] Address [address], [place] [address] Care Team Providers Care Graphics Programmer Name Role Phone Sam Madrigal MD Primary Care Provider Unavaila ble Encounter Details Date Type Department Care Team (Late Contact Info) Description 03/01/2013 Outside Hospital External to [facility] DISCHARGE SUMMARY Social History Tobacco Use Types Packs/Day Years [...] as of this encounter Progress Notes * Sumanth Morgan Of - 03/01/2013 12:00 AM CDT documented in this encounter Plan of Treatment Upcoming Encounters Date Type Department Care Team (Late Contact Info) Description 02/19/2024 10:30 AM CDT Appointment [facility] [address] [place] [address]. [place] [address] Abby Maya MD [address] [place] [address] documented as of this encounter Visit Diagnoses Not on filedocumented in this encounter Care Teams Graphics Programmer Relationship Specialty Start Date End Date Sam Madrigal MD PCP - General 11/17/07 documented as of this encounter
--- OUTSIDE RECORDS SUMMARY | 2024-01-17 20:46 | XMS_ITS | Encounter Summary ---
Author Organization [facility] Address [address] [address] Care Team Providers Care Assistant Secretary Name Role Phone Sam Madrigal MD Primary Care Provider Williea jarrell Encounter Details Date Type Department Care Team (Late st Contact Info) Description 03/17/2012 Outside Hospital External to [facility], Provider DISCHARGE SUMMARY Social History Tobacco Use Types [...] as of this encounter Progress Notes * Cathy Provider - 03/17/2012 12:00 AM CDT documented in this encounter Plan of Treatment Upcoming Encounters Date Type Department Care Team (Late st Contact Info) Description 02/19/2024 10:30 AM CDT Appointment [facility] [address] [place] [address]. [place] [address] Abby Maay MD [address] [place] [address] documented as of this encounter Visit Diagnoses Not on filedocumented in this encounter Care Teams Assistant Secretary Relationship Specialty Start Date End Date Sam Madrigal MD PCP - General 11/17/07 documented as of this encounter
--- OUTSIDE RECORDS SUMMARY | 2024-01-17 20:46 | XMS_ITS | Encounter Summary ---
Author Organization [facility] Address [address] [place] [address] Care Team Providers Care Safe Deposit Clerk Name Role Phone Sam Madrigal MD Primary Care Provider Unavaila ble Encounter Details Date Type Department Care Team (Late st Contact Info) Description 03/07/2012 Correspondence None Inactive, Provider PAP EQUIPMENT PICK-UP [...] encounter Progress Notes * Inactive, Provider - 03/07/2012 12:00 AM CDT documented in this encounter Plan of Treatment Upcoming Encounters Date Type Department Care Team (Late Contact Info) Description 02/19/2024 10:30 AM CDT Appointment [facility]ty [facility] [address] [place] [address]. [place] [address] Abby Maya MD [address] [place] [address] documented as of this encounter Visit Diagnoses Not on filedocumented in this encounter Care Teams Safe Deposit Clerk Relationship Specialty Start Date End Date Sam Madrigal MD PCP - General 11/17/07 documented as of this encounter
--- OUTSIDE RECORDS SUMMARY | 2024-01-17 20:46 | XMS_ITS | Encounter Summary ---
Author Organization [facility] Address [address] [place] [address] Care Team Providers Care Creative Specialist Name Role Phone Sam Madrigal MD Primary Care Provider Unavaila ble Encounter Details Date Type Department Care Team (Late st Contact Info) Description 03/18/2015 Flowsheet External to External, [place] [address] BLOOD PRESSURE CHECK Social History Tobacco Use Types Packs/Day Years [...] Appointment Specialty Center [address] [place] [address]. [place] [address] Abby Maya MD [address] [place] [address] documented as of this encounter Visit Diagnoses Not on filedocumented in this encounter Care Teams Creative Specialist Relationship Specialty Start Date End Date Sam Madrigal MD PCP - General 11/17/07 documented as of this encounter
--- OUTSIDE RECORDS SUMMARY | 2024-01-17 20:46 | XMS_ITS | Encounter Summary ---
Author Organization [facility] Address [address] [place] [address] Care Team Providers Care Supplier Quality Engineer Name Role Phone Sam Madrigal MD Primary Care Provider Unavaila ble Encounter Details Date Type Department Care Team (Late st Contact Info) Description 01/17/2012 Correspondence None Inactive, Provider DME INSTRUCTION DELIVERY PAP THERAPY AND SUPPLIES Social History Tobacco Use Types Packs/Day Years [...] CDT Appointment Specialty Center [address] [place] [address]. [place] [address] Abby Maya MD [address] [place] [address] documented as of this encounter Visit Diagnoses Not on filedocumented in this encounter Care Teams Supplier Quality Engineer Relationship Specialty Start Date End Date Sam Madrigal MD PCP - General 11/17/07 documented as of this encounter
--- OUTSIDE RECORDS SUMMARY | 2024-01-17 20:46 | XMS_ITS | Encounter Summary ---
Author Organization [facility] Address [address] [place] [address] Care Team Providers Care Geosciences Associate Professor Name Role Phone Sam Madrigal MD Primary Care Provider Unavaila ble Encounter Details Date Type Department Care Team (Late st Contact Info) Description 01/17/2012 Correspondence None Inactive, Provider INSTRUCTION CHECKLIST Social History Tobacco Use Types Packs/Day Years [...] CDT Appointment Specialty Center [address] [place] [address]. [place] [address] Abby Maya MD [address] [place] [address] documented as of this encounter Visit Diagnoses Not on filedocumented in this encounter Care Teams Geosciences Associate Professor Relationship Specialty Start Date End Date Sam Madrigal MD PCP - General 11/17/07 documented as of this encounter
--- OUTSIDE RECORDS SUMMARY | 2024-01-17 20:46 | XMS_ITS | Encounter Summary ---
Author Organization [facility] Address [address] [place] [address] Care Team Providers Care Public Health Training Assistant Name Role Phone Sam Madrigal MD Primary Care Provider Unavaila ble Encounter Details Date Type Department Care Team (Late st Contact Info) Description 07/07/2012 Correspondence [facility] [address] [place] [address] Sam Madrigal MD MEDICATIONS Social History Tobacco Use Types Packs/Day Years [...] as of this encounter Progress Notes * Sam Madrigal MD - 07/07/2012 12:00 AM CST CIATE PROFESSOR OF AUTOMATION documented in this encounter Plan of Treatment Upcoming Encounters Date Type Department Care Team (Late st Contact Info) Description 02/19/2024 10:30 AM CDT Appointment Specialty [facility] [address] [place] [address]. [place] [address] Abby Maya MD [address] [place] [address] documented as of this encounter Visit Diagnoses Not on filedocumented in this encounter Care Teams Public Health Training Assistant Relationship Specialty Start Date End Date Sam Madrigal MD PCP - General 11/17/07 documented as of this encounter
--- OUTSIDE RECORDS SUMMARY | 2024-01-17 20:46 | XMS_ITS | Encounter Summary ---
Author Organization [facility] Address [address] [place] [address] Care Team Providers Care Optical Fabricator Name Role Phone Sam Madrigal MD Primary Care Provider Unavaila ble Encounter Details Date Type Department Care Team (Late st Contact Info) Description 04/07/2014 Correspondence None No Primary/Referring, Phy EQUIPMENT UX DESIGNER TICKET CPAP Social History Tobacco Use Types [...] Appointment Specialty Center [address] [facility] 401 [place] [address] Abby Maya MD 401 [place], [place] [address] documented as of this encounter Visit Diagnoses Not on filedocumented in this encounter Care Teams Optical Fabricator Relationship Specialty Start Date End Date Sam Madrigal MD PCP - General 11/17/07 documented as of this encounter
--- OUTSIDE RECORDS SUMMARY | 2024-01-17 20:46 | XMS_ITS | Encounter Summary ---
Author Organization [facility] Address [address], [place] [address] Care Team Providers Care Braider Setter Name Role Phone Sam Madrigal MD Primary Care Provider Unavaila ble Encounter Details Date Type Department Care Team (Late Contact Info) Description 03/01/2013 Outside Hospital External to [facility] OP PROCEDURE KNEE ARTHROPLASTY Social History Tobacco Use Types Packs/Day Years [...] this encounter Progress Notes * Sumanth Morgan [facility] - 03/01/2013 12:00 AM CDT documented in this encounter Plan of Treatment Upcoming Encounters Date Type Department Care Team (Late Contact Info) Description 02/19/2024 10:30 AM CDT Appointment Specialty Center [address] [place] [address]. [place] [address] Abby Maya MD [address] [place] [address] documented as of this encounter Visit Diagnoses Not on filedocumented in this encounter Care Teams Braider Setter Relationship Specialty Start Date End Date Sam Madrigal MD PCP - General 11/17/07 documented as of this encounter
== END 2024-01-14 07:46 | disposition home or self-care (01) ==
LOC: NFLDREF 01-17 20:43
PROVIDERS: PCP Family Medicine; Referring Provider Family Medicine; Visit Provider Family Medicine
DX: E78.5 Hyperlipidemia, unspecified (principal); I10 Essential (primary) hypertension
CPT/HCPCS: 80053; 80061

== ENCOUNTER 2024-02-17 07:57 | Outpatient (CLI) | payer MEDICARE, SELFPAY ==
--- OUTSIDE RECORDS SUMMARY | 2024-02-19 00:13 | XMS_ITS | Clinical Summary ---
Author Organization [facility] [place] [address] Care Team Providers Care Thrasher Feeder Name Role Phone Sam Madrigal Bennie Primary [...] Influenza for age 65+ 03/29/2024 Care Teams Thrasher Feeder Relationship Specialty Start Date End Date Sam Madrigal PCP - General Family Practice 04/26/16
--- OUTSIDE RECORDS SUMMARY | 2024-02-19 00:13 | XMS_ITS | Clinical Summary ---
Author Organization [facility] Address [address] [place] [address] Care Team Providers Care Pit And Auxiliaries Supervisor Name Role Phone Sam Madrigal MD Primary Care Provider [phone] Allergies No known active allergies Medications Medication [...] Booster 12/14/2020 12/14/2010 COVID-19 Vaccine ( - 2022-24 season) 2023 Influenza Vaccine (#1) 2024 05/23/2011, 2009 Care Teams Pit And Auxiliaries Supervisor Relationship Specialty Start Date End Date Sam Madrigal MD [address] [place] [address] PCP - General 04/06/19
--- OUTSIDE RECORDS SUMMARY | 2024-02-19 00:13 | XMS_ITS | Data Portability ---
Author Organization [facility] Address [address] [place] [address] [address] [place] [address] Care Team Providers Care Utilization Engineer Name Role Phone ALEXANDRA [place] Primary Care Provider Assessment Encounter Date Assessment Date Assessment LastModified by Organization Details LastModified Time 09/08/2022 09/08/2022 09/08/2022 -COVID-19 nasal swab specimen sent to [facility] -Pt was instructed to call tomorrow to obtain Covid-19 results. he understands that we do not call to give results. he is to call - Option #1. Not available 09/08/2022 09:13:02 Plan of Treatment Reminders Order Date Submit Date Provider Last Modified By Organization Details Last Modified Time Details Appointments None recorded. Lab None recorded. Referral None recorded. Procedures None recorded. Surgeries None recorded. Imaging None recorded. Medication Orders azithromyc in [address] [facility], [address] [address] [place], [address], 3 09:15:15 fluticason e propionate 50 mcg/actuat ion nasal spray,susp ension [address] [facility] 2846, [address] So. [place] [facility] [address], [place], [address], 3 09:15:15 Zyrtec 10 mg tablet [address] [facility], [address] [address] [place], [address], 09:20:32 Patient TargetsNo targets recorded. Patient Instructions Encounter Date Encounter Id Patient Instructions Last Modified By Organization Details Last Modified Time 09/08/2022 [id number] Acute Sinusitis: Care Instructions Not available 09/08/2022 09:11:38 saline nasal washes: care instructions [email or web address] Not available 09/08/2022 09:11:38 hand-washing: ca re instructions [email or web address] Not available 09/08/2022 09:11:38 coronavirus (covid-19): care instructions [email or web address] Not available 09/08/2022 09:11:38 high blood pressure: care instructions [email or web address] Not available 09/08/2022 09:11:38 low sodium diet (2,000 milligram): care instructions [email or web address] Not available 09/08/2022 09:11:38 upper respirator y infection (cold): care instructions [email or web address] Not available 09/08/2022 09:11:38 -Long discussion with [...] distancing to prevent the spread of COVID-19. Not available 09/08/2022 09:10:05 PLAN 1. Pt was instructed to call tomorrow to obtain Covid-19 results. Pt understands that we do not call to give results. PT is to call - Option #1. 1. Patient to follow up with PCP or RTC within the next 2-3 days or sooner if symptoms persist or worsen 2. Patient instructed [place] open M-F 8am-8pm and Sat/Sun 8am-5pm, and [facility] is open everyday from 8Am- 5 PM. [...] follow expected course, or if any worse. [email or web address] Not available 09/08/2022 09:10:52 Reason for Referral None Reported. Problems Name Status Onset Date Resolution Date Notes Provider Name and Address Organization Details Recorded Time Hyperlipidemia Active 09/08/19 [facility] 09/08/2022 08:53:08 Hypertensive disorder Active 09/08/19 [facility] 09/08/2022 08:53:12 Problem Notes None recorded. Procedures Surgical History Date Name Laterality Status Provider Name and Address Organization Details Recorded Time LEFT Knee Replacement completed [facility] 09/08/2022 08:54:06 RIGHT Knee Replacement completed [facility] 09/08/2022 08:54:14 Imaging Results None recorded. Procedure [...] cm 18 /min 97.6 [degF] 29.4 kg/m2 05092.4 4 g 97 % 97 % 143 mm[Hg] 65 mm[Hg] ARNDA ARPITA [facility] 3 08:51:02 Social History Question Answer Notes LastModified by Organizat ion Details LastModified Time Tobacco Smoking Status Former Smoker quit 1984 RANDA ARPITA [facility] 09/08/2022 08:53:57 What Is Your Level Of Alcohol Consumption? Moderate [email or web address] Information not available 09/08/2022 How Many Years Have You Smoked Tobacco? 20 1 Pack A Day [email or web address] Information not available 09/08/2022 Sex: Unknown Functional Status None recorded. Mental Status None [...] Encounter Closed Date Diagnosis/Indication Diagnosis SNOMED-CT Code [id number] EULOGIO JAY NP [facility] [address] [place] [address] 09/08/2022 08:50:33 09/08/2022 09:23:43 Risk of exposure to communicable disease 132856784 Essential hypertension [id number] Acute uppe r respiratory infection 01608136 Acute pharyngitis 046629 003 Acute sinusitis 97052129 Health Concerns Section Related Observation LastModified by Organization Detai ls LastModified Time None Recorded Concern Status LastModified by Organization Details LastModified Time None Recorded Advance Directives Directive None Recorded Payers Encounter Date Sequence Insurance Name Policy Number Policy Gutierrez Covered Member ID Gutierrez Member ID Guarantor Name 09/08/2022 1 BCBS-ID: [facility] [id number] [facility] [employer] [id number] [place] [employer] Notes Date Note Type Note Provider Name [...] and booster, [place] [address], [place], [address], [facility] 09/08/2022 09:14:34
--- OUTSIDE RECORDS SUMMARY | 2024-02-19 00:13 | XMS_ITS | Clinical Summary ---
Author Organization [facility] Address [address] [address] Care Team Providers Care Dispatcher Service Name Role Phone Sam Madrigal MD Primary Care Provider Unavaila ble Source Comments You are receiving this document as you are listed as the primary care provider,follow-up provider, or the patient has been referred to you for consultation.This is in compliance with the Medicare and[facility] Hospital[facility] EHR Incentive Program,which states Providers who transition their patient to another setting of careor provider of care or refers their patient to another provider of care shouldprovide summary care record for each transition of care or referral. Advisor Client [facility] Allergies No known active allergies Medications Medication [...] 10:30 AM CDT Home Medical Services [facility] [address] [place] [address] Rohan Rooney 01/10/2024 Notes/Orders [facility] [address] [place] [phone] Geovanna Headley Obstructive sleep apnea (adult) (pediatric) (Primary Dx) 01/09/2024 Notes/Orders [facility] [address] [place] [phone] Geovanna Headley Obstructive sleep apnea (adult) (pediatric) (Primary Dx) 12/09/2023 10:30 AM CDT Home Medical Services [facility] [address] [place], [place] [phone] Dylan Flaherty 11/28/2023 Notes/Orders [facility] [address] [place] [address] Hang Pena Obstructive sleep apnea (adult) (pediatric) (Primary Dx) from Last 3 Months Immunizations Name Administration Dates Next Due Flu Vac (3+ yrs) 05/23/2011,05/25/2010 [id number] 08/11/2009,06/27/2009 Influenza IIV3 (Trivalent) F luzone Highdose, 65+ Yrs (05318) 05/05/2020,04/27/2019 Influenza IIV4 (Quadrivalent ) Fluzone, 65+ [...] Mother (Age 45) CVA Brother 1 Alive 1944 Brother 2 Alive 1953 Brother 3 Other Sister 1 Alive 1942 Sister 2 Sister 3 Son 1 Alive [facility]1971 Son 2 Alive [facility]1973 Social History Tobacco Use Types Packs/Day Years [...] T Respiratory Rate 17 07/07/2019 12:05 PM TREE PLANTER Oxygen Saturation 95% 07/07/2019 12:05 PM TREE PLANTER Inhaled Oxygen Concentration - - Weight 95.7 kg (211 lb) 03/06/2021 9:21 AM CDT Height 175.3 cm (5' 9) 01/04/2021 4:44 PM CDT Body Mass Index 31.16 01/04/2021 4:44 PM CDT Plan of Treatment Upcoming Encounters Date Type Department Care Team (Late st Contact Info) Description 02/19/2024 10:30 AM CDT Appointment [facility] [address] [place] [address] Abby Maya MD 401 [place], [place] [phone] 02/24/2024 10:30 AM CDT Appointment [facility] [address] [place] [address] Colleen Alva LPN Health Maintenance Due Date Last Done Comments Medicare Annual Wellness Visit 01/05/2022 01/05/2021, 03/25/2019, 03/17/2018, Additional history exists Prediabetes: HGBA1C 03/06/2022 03/06/2021 COVID-19 Vaccine ( season) 2023 05/27/2023, 07/03/2022, 01/16/2022, Additional history exists Influenza (#1) 2024 05/27/2023, 11/0 10/2021, 05/16/2021, Additional history exists Colonoscopy 07/07/2024 07/07/2019, 06/30/2009 DTaP/Tdap/Td (5 - Tdap) 12/12/2031 12/12/19, 12/14/2010, 10/16/2002, Additional history exists Hep C Screening (Preventive Services) Completed 03/17/2018 Pneumococcal 65+ Yrs Completed 02/29/2020, 04/27/20 19 Cholesterol Discontinued 03/02/2021, 0809/2019, 03/25/2019, Additional history exists Zoster/Shingles Completed 04/23/2022, 02/05/2022 HepA Aged Out No longer eligi ble [...] Procedure Name Priority Date/Time Associated Diagnosis Comments HGB A1C Routine 03/06/2021 10:24 AM CDT Impaired fasting glucose LIPID PANEL & DIRECT LDL (IF NEEDED) Routine 03/02/2021 7:56 AM CDT Mixed hyperlipidemia COLONOSCOPY Routine 07/07/2019 11:16 AM TREE PLANTER Screen for colon cancer HEPATITIS C ANTIBODY, WITH REFLEX Routine 03/17/2018 9:22 AM CDT Screening for viral disease from Last 3 Months or Most Recently Relevant to Health Maintenance Results * Hgb A1C (03/06/2021 10:24 AM CDT) Hemoglobin A1C 5.5 <=5.6 % 03/06/2021 5:09 PM CDT [facility] Blood Venipuncture / Unknown 03/06/2021 10:24 AM CDT 03/06/2021 10:24 AM CDT aSm Madrigal MD LAB_1 [facility] [address] [place] [address], [facility] [phone] * Lipid Panel and Direct LDL(If Needed) (03/02/2021 7:56 AM CDT) Cholesterol 150 0 - 199 mg/dL 03/02/2021 11:43 AM CDT [facility] Triglyceride 82 <=149 mg/dL 03/02/2021 11:43 AM CDT [facility] HDL Cholesterol 51 >=40 mg/dL 03/02/2021 11:43 AM CDT [facility] LDL, Calculated 83 <130 mg/dL 03/02/2021 11:43 AM CDT [facility] Non HDL Chol, Calculated 99 <=159 mg/dL 03/02/2021 11:43 AM CDT [facility] Cholesterol/HDL Ratio 2.9 03/02/2021 11:43 AM CDT [facility] Hours Fasting 12 03/02/2021 11:43 AM CDT [facility] Blood Venipuncture / Unknown 03/02/2021 7:56 AM CDT 03/02/2021 7:56 AM CDT Sam Madrigal MD LAB_1 Performing Organization Address City/State/[facility] Co de Phone Number [facility] [address] [place] [address], [facility] [phone] [facility] [address] [place] [address], [facility] [phone] * COLONOSCOPY [[id number]] (07/07/2019 11:16 AM TREE PLANTER) 07/07/2019 11:1 6 AM TREE PLANTER Narrative GI ([facility]) - 07/07/2019 11:45 AM TREE PLANTER Instrument Name: 183 Indications: ? Screening for colorectal malignant neoplasm Providers: ? Emerson Clifford MD, Brandi Dowling LPN, ? Sury Dubon RN Referring MD: ?Sam Madrigal Medicines: ? Midazolam 2 mg IV, Fentanyl [...] Procedure Code(s): ?? --- Professional --- ? 03710, PT, Colonoscopy, flexible; with removal of ? [...] older (additional time may be reported with [address], as ? appropriate) Diagnosis Code(s): ?? --- Professional --- ? Z12.11, Encounter for screening for malignant ? neoplasm of colon ? K64.8, Other hemorrhoids ? D12.0, Benign neoplasm of cecum ? K57.30, Diverticulosis of large intestine without ? perforation or abscess without bleeding CPT copyright 2018 [employer]. All rights reserved. The codes documented in this report are preliminary and upon hcc coders review may be revised to meet current [...] pathology results. Procedure Code(s): --- Professional --- 88653, PT, Colonoscopy, flexible; with removal of tumor(s), polyp(s), or other lesion(s) by snare technique G0500, PT, Moderate sedation services provided by the same physician or other qualified health health care coach performing a gastrointestinal endoscopic service that sedation supports, requiring the presence of an independent trained observer to assist in the monitoring of the patient's level of consciousness and physiological status; initial 15 minutes of intra-service time; patient age 5 years or older (additional time may be reported with 41866, as appropriate) Diagnosis Code(s): --- Professional --- Z12.11, Encounter for screening for malignant neoplasm of colon K64.8, Other hemorrhoids D12.0, Benign neoplasm of cecum K57.30, Diverticulosis of large intestine without perforation or abscess without bleeding CPT copyright 2018 [employer]. All rights reserved. The codes documented in this report are preliminary and upon hcc coders review may be revised to meet current compliance requirements. Attending Participation: Emerson Clifford MD 07/07/2019 11:45:26 AM This report has been signed electronically. Number of Addenda: 0 Note Initiated On: 07/07/2019 11:16 AM Emerson Clifford MD DIGESTIVE CARE Performing Organization Address City/[facility]/ZIP Co de Phone Number GI ([facility]OVATION) [place], [place] * Hepatitis C Antibody, with Reflex (03/17/2018 9:22 AM CDT) Anti-HCV Negative (Non Reactive) [facility] Comment: Antibodies to HCV not detected. Does not exclude the possibility of exposure to HCV. 03/17/2018 9:22 AM CDT 03/17/2018 9:23 AM CDT Narrative [facility] - 03/17/2018 3:53 PM CDT Performed at [facility], [address] [place] [address] ??[id number] Sam Madrigal MD LAB_1 Performing Organization Address City/[facility]/ZIP Co de Phone Number [facility] [phone] from Last 3 Months or Most Recently Relevant to Health Maintenance Care Teams Dispatcher Service Relationship Specialty Start Date End Date Sam Madrigal MD PCP - General 11/17/07
--- OUTSIDE RECORDS SUMMARY | 2024-02-19 00:13 | XMS_ITS | Encounter Summary ---
Author Organization [facility] Address [address] [address] Care Team Providers Care Inventory Control Associate Name Role Phone Sam Madrigal MD Primary Care Provider Unavaila ble Reason for Visit * Reason Comments EQUIPMENT EVALUATION Picking up loaner Encounter Details Date Type Department Care Team (Late st Contact Info) Description 01/13/2024 10:30 AM CDT Home Medical Services [facility] [address] [place] [address] Rohan Rooney Social History Tobacco [...] AM CDT [facility] for a defective PAP device. [...] before the replacement. Defective Serial numbers are: [id number] The defective device was replaced by a loaner device received by the patient. Serial numbers for the loaner are [id number]. The loaner unit had 1,227 hours. The $250.00 deposit for the loanerwas taken via Twit[employer] and deposit is set to run on 04/14/2024. Pressure settings on the loaner were Auto CPAP with a pressure of 11-46ywE0L. The patient will be using the loaner to achieve compliance so we can get an auth for resupply. MARIE documented in this encounter Plan of Treatment Upcoming Encounters Date Type Department Care Team (Late st Contact Info) Description 02/19/2024 10:30 AM CDT Appointment [facility] [address] [place] [address] Abby Maya MD [address] [place], [place] [phone] 02/24/2024 10:30 AM CDT Appointment [facility] [address] [place] [address] Colleen Alva LPN documented as of this encounter Visit Diagnoses Not on filedocumented in this encounter Care Teams Inventory Control Associate Relationship Specialty Start Date End Date Sam Madrigal MD PCP - General 11/17/07 documented as of this encounter
--- OUTSIDE RECORDS SUMMARY | 2024-02-19 00:13 | XMS_ITS | Referral Summary ---
Author Organization [facility] Address [address] [place] [address] Care Team Providers Care Senior Cost Estimator Name Role Phone Sam Madrigal MD Primary Care Provider [phone] Allergies No known active allergies Medications Medication [...] of Treatment Not on file Care Teams Senior Cost Estimator Relationship Specialty Start Date End Date Sam Madrigal MD [address] [place] [address] PCP - General 04/06/19
--- OUTSIDE RECORDS SUMMARY | 2024-02-19 00:14 | XMS_ITS | Encounter Summary ---
Author Organization [facility] Address [address] [address] Care Team Providers Care V Belt Mold Assembler And Curer Name Role Phone Sam Madrigal MD Primary Care Provider Unavaila ble Encounter Details Date Type Department Care Team (Latest Contact Info) Description 03/29/2015 Flowsheet External to External, [place] [address] HOME BP CHECKS Social History Tobacco Use [...] Appointment Specialty Center 401 [facility] [place] [address] Abby Maya MD [address] [place], [place] [phone] 02/24/2024 10:30 AM CDT Appointment [facility] [address] [place] [address] Colleen Alva LPN documented as of this encounter Visit Diagnoses Not on filedocumented in this encounter Care Teams V Belt Mold Assembler And Curer Relationship Specialty Start Date End Date Sam Madrigal MD PCP - General 11/17/07 documented as of this encounter
--- OUTSIDE RECORDS SUMMARY | 2024-02-19 00:14 | XMS_ITS | Encounter Summary ---
Author Organization [facility] Address [address] [place] [address] Care Team Providers Care Vice Provost Name Role Phone Sam Madrigal MD Primary [...] Appointment Specialty Center 401 [facility] [facility] 401 [place] [address] Abby Maya MD [address] [place], [place] [phone] 02/24/2024 10:30 AM CDT Appointment [facility] [address] [place] [phone] Colleen Alva LPN documented as of this encounter Visit Diagnoses Not on filedocumented in this encounter Care Teams Vice Provost Relationship Specialty Start Date End Date Sam Madrigal MD PCP - General 11/17/07 documented as of this encounter
--- OUTSIDE RECORDS SUMMARY | 2024-02-19 00:14 | XMS_ITS | Encounter Summary ---
Author Organization [facility] Address [address] [address] Care Team Providers Care Keg Header Name Role Phone Sam Madrigal MD Primary Care Provider Unavaila ble Reason for Referral * Procedure/Equipment (Routine) - New Request Specialty Diagnoses / Procedures Referred By Contac t Referred To Contact Diagnoses Obstructive sleep apnea (adult) (pediatric) Procedures Sleep Management Other MD [place] [address] [place] [address] Referral ID Status Reason Start Date Expiration Date V isits Requested Visits Authorized [id number] New Request 11/28/2023 02/26/2025 1 1 Encounter Details Date Type Department Care Team (Late st Contact Info) Description 11/28/2023 Notes/Orders [facility] [address] [place] [phone] Hang Pena [address] [place] [address] Obstructive sleep apnea [...] Specialty Center 401 [facility] [facility] [place] [address] Abby Maya MD [address] [place], [place] [phone] 02/24/2024 10:30 AM CDT Appointment [facility] [address] [facility] [place] [address] Colleen Alva LPN documented as of this encounter Visit Diagnoses Diagnosis Obstructive sleep apnea (adult) (pediatric)- Primary documented in this encounter Care Teams Keg Header Relationship Specialty Start Date End Date Sam Madrigal MD PCP - General 11/17/07 documented as of this encounter
--- OUTSIDE RECORDS SUMMARY | 2024-02-19 00:14 | XMS_ITS | Encounter Summary ---
Author Organization [facility] Address [address], [place] [address] Care Team Providers Care Conditioning Machine Operator Name Role Phone Sam Madrigal [...] Appointment Specialty Center [address] [place] [address] Abby Maya MD [address] [place], [place] [phone] 02/24/2024 10:30 AM CDT [facility] [address] [place] [address] Colleen Alva LPN documented as of this encounter Visit Diagnoses Not on filedocumented in this encounter Care Teams Conditioning Machine Operator Relationship Specialty Start Date End Date Sam Madrigal MD PCP - General 11/17/07 documented as of this encounter
--- OUTSIDE RECORDS SUMMARY | 2024-02-19 00:14 | XMS_ITS | Encounter Summary ---
Author Organization [facility] Address [address], [place] [address] Care Team Providers Care Security Assessor Name Role Phone Sam Madrigal MD Primary Care Provider Unavaila ble Encounter Details Date Type Department Care Team (Latest Contact Info) Description 05/27/2019 Flowsheet External to External, [place] [address] BP Social History Tobacco Use Types Packs/Day [...] Appointment Specialty Center 401 [facility] 401 [facility] [place] [address] Abby Maya MD [address] [place], [place] [phone] 02/24/2024 10:30 AM CDT Appointment [facility] [address] [place] [address] Colleen Alva LPN documented as of this encounter Visit Diagnoses Not on filedocumented in this encounter Care Teams Security Assessor Relationship Specialty Start Date End Date Sam Madrigal MD PCP - General 11/17/07 documented as of this encounter
--- OUTSIDE RECORDS SUMMARY | 2024-02-19 00:14 | XMS_ITS | Encounter Summary ---
Author Organization [facility] Address [address] [place] [address] Care Team Providers Care Slag Wheeler Name Role Phone Sam Madrigal MD Primary Care Provider Unavaila ble Reason for Referral * Procedure/Equipment (Routine) - New Request Specialty Diagnoses / Procedures Referred By Casey ivy Referred To Contact Diagnoses Obstructive sleep apnea (adult) (pediatric) Procedures Positive Airway Pressure - Replacement/Repair Donis Luong APRN, CNP [address] [place] [address] Referral ID Status Reason Start Date Expiration Date V isits Requested Visits Authorized [id number] New Request 01/09/2024 04/09/2025 1 1 Encounter Details Date Type Department Care Team (Late st Contact Info) Description 01/09/2024 Notes/Orders [facility] [address] [facility] [place] [address] Geovanna Headley Obstructive sleep apnea [...] Appointment Specialty Center [address] [facility] [facility] [address] Abby Maya MD 401 [place] [address] 02/24/2024 10:30 AM CDT Appointment [facility] [address] [place] [address] Colleen Alva LPN documented as of this encounter Visit Diagnoses Diagnosis Obstructive sleep apnea (adult) (pediatric)- Primary documented in this encounter Care Teams Slag Wheeler Relationship Specialty Start Date End Date Sam Madrigal MD PCP - General 11/17/07 documented as of this encounter
--- OUTSIDE RECORDS SUMMARY | 2024-02-19 00:14 | XMS_ITS | Encounter Summary ---
Author Organization [facility] Address [address], [place] [address] Care Team Providers Care Sand Caster Apprentice Name Role Phone Sam Madrigal MD Primary Care Provider Unavaila ble Reason for Visit * Reason Comments EQUIPMENT EVALUATION Encounter Details Date Type Department Care Team (Late st Contact Info) Description 12/09/2023 10:30 AM CDT Home Medical Services [facility] [address] [place] [address] Dylan Flaherty Social History Tobacco Use Types [...] AM CDT Kang Mckoy was seen by [facility] on 12/09/2023, for a defective PAP device. This issue was Loud motor. The device was inspected and the issue was confirmed during the appointment. The ResMed unit was performing as expected via Airview. The unit is not under warranty. Defective Serial numbers are: [id number]. Patient has not used his machine since July and did not need a loaner machine. He will wait to hear what the estimate is when it comes back. DM documented in this encounter Plan of Treatment Upcoming Encounters Date Type Department Care Team (Late st Contact Info) Description 02/19/2024 10:30 AM CDT Appointment Specialty Center [address] 401 [facility] [place] [address] Abby Maya MD [address] [place], [place] [phone] 02/24/2024 10:30 AM CDT Appointment [facility] [place] [employer] [facility] [address] [facility] [place] [phone] Colleen Alva LPN documented as of this encounter Visit Diagnoses Not on filedocumented in this encounter Care Teams Sand Caster Apprentice Relationship Specialty Start Date End Date Sam Madrigal MD PCP - General 11/17/07 documented as of this encounter
--- OUTSIDE RECORDS SUMMARY | 2024-02-19 00:14 | XMS_ITS | Encounter Summary ---
Author Organization [facility] Address [address], [place] [address] Care Team Providers Care Marine Technician Name Role Phone Sam Madrigal MD Primary Care Provider Unavaila ble Encounter Details Date Type Department Care Team (Late Contact Info) Description 03/31/2015 Correspondence None No Primary/Referring, Phy HME EQUIPMENT HEALTH AND PHYSICAL EDUCATION PROFESSOR TICKET Social History Tobacco Use Types Packs/Day [...] Appointment Specialty Center 401 [facility] [facility] 401 [facility]. [place], [place] [phone] Abby Maya MD [address] [place], [place] [phone] 02/24/2024 10:30 AM CDT Appointment [facility] [address] [facility] [place] [address] Colleen Alva LPN documented as of this encounter Visit Diagnoses Not on filedocumented in this encounter Care Teams Marine Technician Relationship Specialty Start Date End Date Sam Madrigal MD PCP - General 11/17/07 documented as of this encounter
--- OUTSIDE RECORDS SUMMARY | 2024-02-19 00:14 | XMS_ITS | Encounter Summary ---
Author Organization [facility] Address [address], [place] [address] Care Team Providers Care Bus Aide Name Role Phone Sam Madrigal MD Primary Care Provider Unavaila ble Encounter Details Date Type Department Care Team (Late Contact Info) Description 06/06/2015 Correspondence None No Primary/Referring, Phy HME EQUIPMENT LUMBER GRADER TICKET Social History Tobacco Use Types Packs/Day [...] Appointment Specialty Center [address] 401 [facility]. [place], [place] [phone] Abby Maya MD [address] [place], [place] [phone] 02/24/2024 10:30 AM CDT Appointment [facility] [address] [facility] [place] [address] Colleen Alva LPN documented as of this encounter Visit Diagnoses Not on filedocumented in this encounter Care Teams Bus Aide Relationship Specialty Start Date End Date Sam Madrigal MD PCP - General 11/17/07 documented as of this encounter
--- OUTSIDE RECORDS SUMMARY | 2024-02-19 00:14 | XMS_ITS | Encounter Summary ---
Author Organization [facility] Address [address] [place] [address] Care Team Providers Care Breastfeeding Peer Counselor Name Role Phone Sam Madrigal MD Primary Care Provider Unavaila ble Encounter Details Date Type Department Care Team (Late st Contact Info) Description 07/07/2019 Consent for Procedure/Treatme nt [facility] Department INFORMED CONSENT RECORD Social History Tobacco [...] Appointment Specialty Center [address] [facility] [facility] 401 [facility] [place], [place] [phone] Abby Maya MD [address] [place], [place] [phone] 02/24/2024 10:30 AM CDT Appointment [facility] [place] [facility] [address] [place] [address] Colleen Alva LPN documented as of this encounter Visit Diagnoses Not on filedocumented in this encounter Care Teams Breastfeeding Peer Counselor Relationship Specialty Start Date End Date Sam Madrigal MD PCP - General 11/17/07 documented as of this encounter
--- OUTSIDE RECORDS SUMMARY | 2024-02-19 00:14 | XMS_ITS | Encounter Summary ---
Author Organization [facility] Address [address], [place] [address] Care Team Providers Care Associate Theatre Professor Name Role Phone Sam Madrigal MD Primary Care Provider Unavaila ble Encounter Details Date Type Department Care Team (Late Contact Info) Description 06/25/2017 Correspondence None No Primary/Referring, Phy HME EQUIPMENT WEB MASTER TICKET CPAP Social History Tobacco Use Types [...] Appointment Specialty Center 401 [facility] 401 [facility] [place], [place] [phone] Abby Maya MD [address] [place], [place] [phone] 02/24/2024 10:30 AM CDT Appointment [facility] [address] [facility] [address] [place] [address] Colleen Alva LPN documented as of this encounter Visit Diagnoses Not on filedocumented in this encounter Care Teams Associate Theatre Professor Relationship Specialty Start Date End Date Sam Madrigal MD PCP - General 11/17/07 documented as of this encounter
--- OUTSIDE RECORDS SUMMARY | 2024-02-19 00:14 | XMS_ITS | Encounter Summary ---
Author [facility] Address [address] [place] [address] Care Team Providers Care Sales And Support Center Agent Name Role Phone Sam Madrigal MD Primary Care Provider Unavaila ble Reason for Referral * Procedure/Equipment (Routine) - Authorized Specialty Diagnoses / Procedures Referred By Contac t Referred To Contact Diagnoses Obstructive sleep apnea (adult) (pediatric) Procedures Sleep Management Other MD [place] [address] [place] [address] Referral ID Status Reason Start Date Expiration Date V isits Requested Visits Authorized [id number] Authorized 01/10/2024 04/10/2025 1 1 Encounter Details Date Type Department Care Team (Late st Contact Info) Description 01/10/2024 Notes/Orders [facility] [address] [place] [address] Geovanna Headley Obstructive sleep apnea (adult) (pediatric) [...] Appointment [facility] [address] [place] [address] Abby Maya MD 401 [place], [place] [phone] 02/24/2024 10:30 AM CDT Appointment [facility] [address] [place] [address] Colleen Alva LPN documented as of this encounter Visit Diagnoses Diagnosis Obstructive sleep apnea (adult) (pediatric)- Primary documented in this encounter Care Teams Sales And Support Center Agent Relationship Specialty Start Date End Date Sam Madrigal MD PCP - General 11/17/07 documented as of this encounter
--- OUTSIDE RECORDS SUMMARY | 2024-02-19 00:14 | XMS_ITS | Encounter Summary ---
Author Organization [facility] Address [address] [place] [address] Care Team Providers Care Early Childhood Associate Teacher Name Role Phone Sam Madrigal MD Primary Care Provider Unavaila ble Encounter Details Date Type Department Care Team (Late st Contact Info) Description 02/21/2015 Correspondence [facility] [address] [place] [address]. [place] [address] Sam Madrigal MD RX CLARIFICATION NEEDED Social [...] Specialty Center [facility] 401 [facility] [place] [address] Abby Maya MD 401 [place] [address] 02/24/2024 10:30 AM CDT Appointment [facility] [address] [place] [address] Colleen Alva LPN documented as of this encounter Visit Diagnoses Not on filedocumented in this encounter Care Teams Early Childhood Associate Teacher Relationship Specialty Start Date End Date Sam Madrigal MD PCP - General 11/17/07 documented as of this encounter
--- OUTSIDE RECORDS SUMMARY | 2024-02-19 00:14 | XMS_ITS | Encounter Summary ---
Author Organization [facility] Address [address], [place] [address] Care Team Providers Care Vegetable Farm Manager Name Role Phone Sam Madrigal MD Primary Care Provider Unavaila ble Encounter Details Date Type Department Care Team (Late Contact Info) Description 03/18/2015 Flowsheet External to External, [place] [address] BLOOD PRESSURE CHECK Social History Tobacco Use [...] Appointment [facility] [address] [place] [address] Abby Maya MD 401 [place], [place] [phone] 02/24/2024 10:30 AM CDT Appointment [facility] [address] [place] [phone] Colleen Alva LPN documented as of this encounter Visit Diagnoses Not on filedocumented in this encounter Care Teams Vegetable Farm Manager Relationship Specialty Start Date End Date Sam Madrigal MD PCP - General 11/17/07 documented as of this encounter
--- OUTSIDE RECORDS SUMMARY | 2024-02-19 00:15 | XMS_ITS | Encounter Summary ---
Author Organization [facility] Address [address], [place] [address] Care Team Providers Care Residential Gas Heat Technician Name Role Phone Sam Madrigal MD [...] CDT Appointment [facility] [address] [place] [address]. [place] [address] Abby Maya MD [address] [place] [address] 02/24/2024 10:30 AM CDT Appointment [facility] [address] [facility] [place] [address] Colleen Alva LPN documented as of this encounter Visit Diagnoses Not on filedocumented in this encounter Care Teams Residential Gas Heat Technician Relationship Specialty Start Date End Date Sam Madrigal MD PCP - General 11/17/07 documented as of this encounter
--- OUTSIDE RECORDS SUMMARY | 2024-02-19 00:15 | XMS_ITS | Encounter Summary ---
Author Organization [facility] Address [address] [place] [address] Care Team Providers Care Make Up Operator Name Role Phone Sam Madrigal MD Primary Care Provider Unavaila ble Encounter Details Date Type Department Care Team (Late st Contact Info) Description 07/07/2012 Correspondence [facility] [address] [place] [address] Sam Madrigal MD MEDICATIONS Social History Tobacco [...] Madrigal MD - 07/07/2012 12:00 AM CST TECHNICIAN documented in this encounter Plan of Treatment Upcoming Encounters Date Type Department Care Team (Late st Contact Info) Description 02/19/2024 10:30 AM CDT Appointment [facility] [address] [place] [address]. [place] [address] Abby Maya MD [address] [place] [address] 02/24/2024 10:30 AM CDT Appointment [facility] [address] [place] [phone] Colleen Alva LPN documented as of this encounter Visit Diagnoses Not on filedocumented in this encounter Care Teams Make Up Operator Relationship Specialty Start Date End Date Sam Madrigal MD PCP - General 11/17/07 documented as of this encounter
--- OUTSIDE RECORDS SUMMARY | 2024-02-19 00:15 | XMS_ITS | Encounter Summary ---
Author Organization [facility] Address [address] [place] [address] Care Team Providers Care Accelerator Technician Name Role Phone Sam Madrigal MD Primary Care Provider Unavaila ble Encounter Details Date Type Department Care Team (Late Contact Info) Description 06/21/2014 Correspondence None No Primary/Referring, Phy EQUIPMENT TOOL MAKER TICKET Social History Tobacco Use Types Packs/Day [...] Appointment [facility]ty [facility] 401 [facility]. [place], [place] [phone] Abby Maya MD 401 [place], [place] [phone] 02/24/2024 10:30 AM CDT Appointment [facility] [address] [place] [address] Colleen Alva LPN documented as of this encounter Visit Diagnoses Not on filedocumented in this encounter Care Teams Accelerator Technician Relationship Specialty Start Date End Date Sam Madrigal MD PCP - General 11/17/07 documented as of this encounter
--- OUTSIDE RECORDS SUMMARY | 2024-02-19 00:15 | XMS_ITS | Encounter Summary ---
Author Organization [facility] Address [address], [place] [address] Care Team Providers Care Customer Support Specialist Name Role Phone Sam Madrigal MD [...] CDT Appointment [facility] [address] [place] [address]. [place] [address] Abby Maya MD [address] [place] [address] 02/24/2024 10:30 AM CDT Appointment [facility] [address] [facility] [place] [address] Colelen Alva LPN documented as of this encounter Visit Diagnoses Not on filedocumented in this encounter Care Teams Customer Support Specialist Relationship Specialty Start Date End Date Sam Madrigal MD PCP - General 11/17/07 documented as of this encounter
--- OUTSIDE RECORDS SUMMARY | 2024-02-19 00:15 | XMS_ITS | Encounter Summary ---
Author Organization [facility] Address [address] [place] [address] Care Team Providers Care Drafting Engineer Name Role Phone Sam Madrigal MD Primary Care Provider Unavaila ble Encounter Details Date Type Department Care Team (Late Contact Info) Description 01/16/2012 Consent for Procedure/Treatme nt [facility] Department INFORMED CONSENT FOR SLEEP/AUDIO/VIDEO Social History [...] CDT Appointment [facility] [address] [place] [address]. [place] [address] Abby Maya MD 401 [place] [address] 02/24/2024 10:30 AM CDT Appointment [facility] [address] [place] [address] Colleen Alva LPN documented as of this encounter Visit Diagnoses Not on filedocumented in this encounter Care Teams Drafting Engineer Relationship Specialty Start Date End Date Sam Madrigal MD PCP - General 11/17/07 documented as of this encounter
--- OUTSIDE RECORDS SUMMARY | 2024-02-19 00:15 | XMS_ITS | Encounter Summary ---
Author Organization [facility] Address [address], [place] [address] Care Team Providers Care Knot Tying Operator Name Role Phone Sam Madrigal MD [...] CDT Appointment [facility] [address] [place] [address]. [place] [address] Abby Maya MD [address] [place] [address] 02/24/2024 10:30 AM CDT Appointment [facility] [address] [facility] [place] [address] Colleen Alva LPN documented as of this encounter Visit Diagnoses Not on filedocumented in this encounter Care Teams Knot Tying Operator Relationship Specialty Start Date End Date Sam Madrigal MD PCP - General 11/17/07 documented as of this encounter
--- OUTSIDE RECORDS SUMMARY | 2024-02-19 00:15 | XMS_ITS | Encounter Summary ---
Author Organization [facility] Address [address] [address] Care Team Providers Care Automation Control Integrator Name Role Phone Sam Madrigal MD Primary Care Provider Unavaila ble Encounter Details Date Type Department Care Team (Late Contact Info) Description 03/01/2013 Outside Hospital External to [facility] DISCHARGE SUMMARY Social History Tobacco Use [...] Appointment Specialty [facility] [address] [place] [address]. [place] [address] Abby Maya MD 401 [place] [address] 02/24/2024 10:30 AM CDT [facility] [address] [facility] [place] [address] Colleen Alva LPN documented as of this encounter Visit Diagnoses Not on filedocumented in this encounter Care Teams Automation Control Integrator Relationship Specialty Start Date End Date Sam Madrigal MD PCP - General 11/17/07 documented as of this encounter
--- OUTSIDE RECORDS SUMMARY | 2024-02-19 00:15 | XMS_ITS | Encounter Summary ---
Author Organization [facility] Address [address] [address] Care Team Providers Care Medical Transcriptionist Name Role Phone Sam Madrigal MD Primary Care Provider Unavaila ble Encounter Details Date Type Department Care Team (Late Contact Info) Description 03/01/2013 Outside Hospital External to [facility] OP PROCEDURE KNEE ARTHROPLASTY Social History Tobacco [...] this encounter Progress Notes * [facility] - 03/01/2013 12:00 AM CDT documented in this encounter Plan of Treatment Upcoming Encounters Date Type Department Care Team (Late Contact Info) Description 02/19/2024 10:30 AM CDT Appointment [facility] [address] [place] [address]. [place] [address] Abby Maya MD 401 [place] [address] 02/24/2024 10:30 AM CDT Appointment [facility] [address] [place] [address] Colleen Alva LPN documented as of this encounter Visit Diagnoses Not on filedocumented in this encounter Care Teams Medical Transcriptionist Relationship Specialty Start Date End Date Sam Madrigal MD PCP - General 11/17/07 documented as of this encounter
--- OUTSIDE RECORDS SUMMARY | 2024-02-19 00:15 | XMS_ITS | Encounter Summary ---
Author Organization [facility] Address [address], [place] [address] Care Team Providers Care Consumer Loan Officer Name Role Phone Sam Madrigal MD Primary Care Provider Williea ble Encounter Details Date Type Department Care Team (Latest Contact Info) Description 01/26/2013 Flowsheet External to External, [place] [address] BP Social History Tobacco Use Types Packs/Day [...] Appointment [facility] [address] [place] [address]. [place] [address] Abby Maya MD 401 [place] [address] 02/24/2024 10:30 AM CDT Appointment [facility] [place] [address] Colleen Alva LPN documented as of this encounter Visit Diagnoses Not on filedocumented in this encounter Care Teams Consumer Loan Officer Relationship Specialty Start Date End Date Sam Madrigal MD PCP - General 11/17/07 documented as of this encounter
--- OUTSIDE RECORDS SUMMARY | 2024-02-19 00:15 | XMS_ITS | Encounter Summary ---
Author Organization [facility] Address [address], [place] [address] Care Team Providers Care Manager Er Name Role Phone Sam Madrigal MD Primary Care Provider Unavaila ble Encounter Details Date Type Department Care Team (Late Contact Info) Description 04/07/2014 Correspondence None No Primary/Referring, Phy EQUIPMENT WOOD BOATBUILDER TICKET CPAP Social History Tobacco Use Types [...] Appointment Specialty [facility] [address] [facility] [place], [place] [address] Abby Maya MD 401 [place], [place] [phone] 02/24/2024 10:30 AM CDT Appointment [facility] [address] [facility] [place] [address] Colleen Alva LPN documented as of this encounter Visit Diagnoses Not on filedocumented in this encounter Care Teams Manager Er Relationship Specialty Start Date End Date Sam Madrigal MD PCP - General 11/17/07 documented as of this encounter
--- OUTSIDE RECORDS SUMMARY | 2024-02-19 00:15 | XMS_ITS | Encounter Summary ---
Author Organization [facility] Address [address] [place] [address] Care Team Providers Care Bilingual Spanish Inbound Sales Name Role Phone Sam Madrigal MD Primary [...] CDT Appointment [facility] [address] [place] [address]. [place] [address] Abby Maya MD [address] [place] [address] 02/24/2024 10:30 AM CDT Appointment [facility] [address] [place] [address] Colleen Alva LPN documented as of this encounter Visit Diagnoses Not on filedocumented in this encounter Care Teams Bilingual Spanish Inbound Sales Relationship Specialty Start Date End Date Sam Madrigal MD PCP - General 11/17/07 documented as of this encounter
--- OUTSIDE RECORDS SUMMARY | 2024-02-19 00:15 | XMS_ITS | Encounter Summary ---
Author Organization [facility] Address [address], [place] [address] Care Team Providers Care Veterinary Practitioner Name Role Phone Sam Madrigal MD Primary Care Provider Williea jarrell Encounter Details Date Type Department Care Team (Late st Contact Info) Description 03/17/2012 Outside Hospital External to [facility], Provider DISCHARGE SUMMARY Social History Tobacco [...] Appointment Specialty [facility] [address] [place] [address]. [place] [address] Abby Maya MD [address] [place] [address] 02/24/2024 10:30 AM CDT Appointment [facility] [address] [place] [address] Colleen Alva LPN documented as of this encounter Visit Diagnoses Not on filedocumented in this encounter Care Teams Veterinary Practitioner Relationship Specialty Start Date End Date Sam Madrigal MD PCP - General 11/17/07 documented as of this encounter
== END 2024-02-17 07:58 | disposition home or self-care (01) ==
LOC: NFLDREF 02-19 00:10
PROVIDERS: PCP Family Medicine; Referring Provider Family Medicine; Visit Provider Family Medicine
DX: E87.1 Hypo-osmolality and hyponatremia (principal); Z12.5 Encounter for screening for malignant neoplasm of prostate
CPT/HCPCS: 80048; G0103

== ENCOUNTER 2024-04-06 11:03 | Emergency (ER) | payer MEDICARE, SELFPAY ==
[2024-04-06] VITALS (14 sets, daily range): BP systolic 170–250; BP diastolic 85–90; PULSE 54–65; RESP 18; TEMP 36.4; O2SAT 97–99; BMI 30.1
--- NOTE | 2024-04-06 11:25 | ED_ITS ---
HPI - General Adult General Chief complaint: Extremity Pain/Injury, Lower Stated complaint: leg swelling and pain Time Seen by Provider: 04/06/24 11:07 History of Present Illness HPI narrative: Pt stated he has L leg swelling and has had pain in both legs that goes up into hamstrings and into buttocks for about 2-3 months. Pt is concerned of a blood clot in left calf. Pt denies tenderness, or warmth in left leg. Pt states he has been short of breath within the last month or two when he walks/exercises 78-year-old man presenting to the emergency department with concern of continued left greater than right leg swelling. This has been a problem for some time but seems to have been worse lately. He has also over the last couple of weeks noted exertional dyspnea. Over the last few months has also been experiencing some pain particularly with movement intermittent shooting pain down bilateral posterior thighs. At rest is okay. Otherwise just some typical low back pain. Underlying history of hypertension. Noted to be quite hypertensive when he presents here today at up to 250 systolic diastolic approximally within goal in mid 80s. Mr. Mckoy does report a history of white coat hypertension would seem that this elevated numbers not necessarily unexpected. Was seen in clinic on 03/15 and 1 of the concerns was lower extremity edema. Was discontinued from amlodipine at that time which was thought to be related and initiated on doxazosin. Was also given a week of diuresis with furosemide recommended to compress and elevate his legs. He does note that he does do good job with elevation referring to well used to recliner. Does also take atenolol. Unclear why was actually initiated on a beta kathryn. Heart rate generally is in the 50s. Does have a history of electrolyte abnormalities well taking chlorthalidone. This was discontinued due to hyponatremia. So within the span of 2 months was initiated on chlorthalidone and discontinued on chlorthalidone and then discontinued amlodipine. Otherwise denies chest pain. Denies headache or visual changes. No nausea. Further regarding leg swelling: Has had for very long time some swelling in the upper outer left leg more so than the right which he has attributed to a relatively removed fibular fracture. He thinks maybe he did bump his lower left leg in the shop perhaps. Does not recall. Related Data Home Medications ?Medication ?Instructions ?Recorded ?Confirmed clobetasol 0.05 % topical ointment 1 applic topical BID PRN 04/17/23 03/10/24 aspirin 81 mg tablet,delayed 81 mg PO .3-4x/week 12/05/23 03/10/24 release ferrous sulfate 325 mg (65 mg 325 mg PO .3-4x/week 12/05/23 03/10/24 iron) tablet (Feosol) latanoprost 0.005 % eye drops 1 drp ophthalmic (eye) QPM 12/05/23 03/10/24 naproxen sodium 220 mg capsule 220 mg PO BID 12/05/23 03/10/24 mycophenolate mofetil 500 mg tablet 500 mg PO .QD PRN 03/10/24 03/10/24 Previous Rx's ?Medication ?Instructions ?Recorded atenolol 50 mg tablet 50 mg PO DAILY #90 tabs 01/20/24 lisinopril 40 mg tablet 40 mg PO QDAY #90 tabs 01/20/24 omeprazole 20 mg capsule,delayed 20 mg PO DAILY #90 caps 01/20/24 release simvastatin 10 mg tablet 10 mg PO .Bedtime #90 tabs 01/20/24 cetirizine 10 mg capsule (Zyrtec) 10 mg PO QDAY PRN allergy symptoms 02/25/24 #90 caps doxazosin 4 mg tablet 4 mg PO QHS #30 tabs 03/10/24 furosemide 20 mg tablet (Lasix) 20 mg PO QAM #7 tabs 03/10/24 Allergies Allergy/AdvReac Type Severity Reaction Status Date / Time No Known Drug Allergies Allergy Verified 04/06/24 14:19 Review of Systems Status of ROS: Reports: 6 or more systems reviewed and unremarkable except as noted in History and below [facility] Medical History Bullous pemphigoid ?L12.0 - Bullous pemphigoid (ICD-10) GERD (gastroesophageal reflux disease) ?K21.9 - Gastro-esophageal reflux disease without esophagitis (ICD-10) Seasonal allergies ?J30.2 - Other seasonal allergic rhinitis (ICD-10) Primary hypertension ?I10 - Essential (primary) hypertension (ICD-10) Mixed hyperlipidemia ?E78.2 - Mixed hyperlipidemia (ICD-10) Obstructive sleep apnea treated with continuous positive airway pressure (CPAP) ?G47.33 - Obstructive sleep apnea (adult) (pediatric) (ICD-10) ?Z99.89 - Dependence on other enabling machines and devices (ICD-10) Herpes zoster (12/02/21) ?B02.9 - Zoster without complications (ICD-10) Surgical History History of carpal tunnel release (07/07/21) ?Z98.890 - Other specified postprocedural states (ICD-10) History of carpal tunnel surgery of left wrist (06/05/23) ?Z98.890 - Other specified postprocedural states (ICD-10) Status post total knee replacement ?Z96.659 - Presence of unspecified artificial knee joint (ICD-10) Family History Father Osteoarthritis Sister Osteoarthritis Brother Osteoarthritis Mother Stroke Social History Narrative: SOCIAL HISTORY: . Two children 5 grandchildren. 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 He is sexually active. Main exercise is playing golf although he uses a cart. He did more walking in [place] where they spent the winter. HABITS: No tobacco or recreational drug use. Alcohol use is 15 drinks per week. FAMILY HISTORY: Mother with stroke in the 1960s. Unspecified relative with heart disease. What is your current living situation?: I presently have a place to live Problems where you live: no known problems In the past 12 months, utilities in danger of being shut off: no In past 12 months, lack of transportation kept you from medical appts, meetings, work, or getting things needed for daily living: no In the past 12 mos, have been you worried that your food would run out before you had money to buy more?: never true In the past 12 mos, the food you bought just didn't last and you didn't have money to buy more?: declined to answer Smoking Status: Former smoker What tobacco products do you use: cigarettes Smoking quit date/years: >15 years ago Do you use any of these nicotine containing products: None Second hand tobacco smoke exposure: Yes ( smokes) How often do you have a drink containing alcohol: 4 or more times a week AUDIT-C Alcohol total score: 4 Non-prescribed substance use: denies use Are you now , , , , never or living with a partner: Social isolation score (0-1 are the most socially isolated patients): 1 How often does anyone, including family, friends and others, physically hurt you : never How often does anyone, including family, friends and others, insult or talk down to you: never How often does anyone, including family, friends and others, threaten you with harm: never How often does anyone, including family, friends and others, scream or curse at you: never Little interest or pleasure in doing things: not at all Feeling down, depressed, or hopeless: not at all Exam Narrative: Exam Narrative: Very pleasant. Breathing easily. Lungs are clear. Cranial nerves 2-12 intact. There is no JVD apparent. Blood pressure/vitals are noted. Lower extremities with 1+ pitting edema from mid calf down bilaterally. Little more swollen perhaps in the left versus the right. Negative Homans. He is with more swelling over the upper lateral left lower leg as well. No cellulitic changes. Bilateral surgical incisions consistent with knee procedures. Heart in regular rhythm, somewhat slowed. Distant. Abdomen is protuberant soft and nontender. Const: Vital Signs, click to edit/add: Vital Signs - 24 hr 04/06/24 11:07 04/06/24 11:21 04/06/24 12:40 Temperature 97.6 F Pulse Rate Pulse Rate [Right Pulse Oximeter] 58 L Respiratory Rate 18 Blood Pressure [Ri ght Upper Arm] 236/86 H 250/85 H Pulse Oximetry 99 99 Oxygen Delivery Me thod Room Air 04/06/24 13:00 04/06/24 13:29 04/06/24 13:30 Temperature Pulse Rate 54 L 54 L Pulse Rate [Right Pulse Oximeter] Respiratory Rate Blood Pressure [Ri ght Upper Arm] 170/90 H Pulse Oximetry 99 97 Oxygen Delivery Me thod 04/06/24 14:08 04/06/24 14:15 04/06/24 14:30 Temperature Pulse Rate 65 58 L 55 L Pulse Rate [Right Pulse Oximeter] Respiratory Rate Blood Pressure [Ri ght Upper Arm] Pulse Oximetry 98 98 99 Oxygen Delivery Nc thod 04/06/24 14:45 04/06/24 15:04 04/06/24 15:08 Temperature Pulse Rate 55 L 58 L 54 L Pulse Rate [Right Pulse Oximeter] Respiratory Rate Blood Pressure [Ri ght Upper Arm] Pulse Oximetry 98 98 98 Oxygen Delivery Me thod 04/06/24 15:09 04/06/24 15:14 Temperature Pulse Rate Pulse Rate [Right Pulse Oximeter] 54 L Respiratory Rate 18 Blood Pressure [Ri ght Upper Arm] 180/85 H Pulse Oximetry 98 Oxygen Delivery Me thod Room Air Documenting provider has reviewed patient's vital signs: yes Course Vital Signs Vital signs: Initial Vital Signs Temperature 97.6 F 04/06/24 11:07 Temperature Source Temporal Artery Scan 04/06/24 11:07 Pulse Rate 58 L 04/06/24 11:07 Respiratory Rate 18 04/06/24 11:07 Blood Pressure 236/86 H 04/06/24 11:07 Blood Pressure Mean 136 H 04/06/24 11:07 Blood Pressure Position Sitting 04/06/24 11:07 Pulse Oximetry 99 04/06/24 11:07 Oxygen Delivery Method Room Air 04/06/24 11:07 Vital Signs Temperature 97.6 F 04/06/24 11:07 Pulse Rate 58 L 04/06/24 11:07 Respiratory Rate 18 04/06/24 11:07 Blood Pressure 236/86 H 04/06/24 11:07 Pulse Oximetry 99 04/06/24 11:07 Oxygen Delivery Method Room Air 04/06/24 11:07 Temperature 97.6 F 04/06/24 11:07 Pulse Rate 54 L 04/06/24 15:09 Respiratory Rate 18 04/06/24 15:14 Blood Pressure 180/85 H 04/06/24 15:14 Pulse Oximetry 98 04/06/24 15:09 Oxygen Delivery Method Room Air 04/06/24 15:09 Medications Administered Medications: Discontinued Medications Generic Name Dose Route Start Last Admin Trade Name Freq PRN Reason Stop Dose Admin Sodium Chloride 500 mls @ 500 mls/hr 04/06/24 13:18 04/06/24 15:25 0.9 % Sodium Chloride 500 Ml IV 04/06/24 14:17 Infused .Q1H ONE Infusion Medical Decision Making MDM Narrative Medical decision making narrative: Will continue to check blood pressures. Certainly could be due white coat hypertensive. He does report checking his blood pressure in the 140 systolic at home 4 days ago. Has had a number of changes to blood pressure medications recently. Of the blood pressure control, again on clear reason at this time for atenolol/beta-kathryn. Will evaluate for potential DVT per concern. Has been experiencing exertional dyspnea. Unsure if this is primarily cardiac or whether not this might represent some pulmonary emboli. Otherwise does not appear to have any infectious symptoms suggest pneumonia or bronchitis. Is not demonstrating typical signs of hypertensive emergency but will check labs in this regard and also will need a creat if need to scan chest. Discussed a findings of bilateral lower extremity ultrasound with release engineer. No DVT. Radiology over-read as below TECHNIQUE: Mcconnell-scale, color, and duplex Doppler imaging of the bilateral lower extremity veins. Compression and augmentation attempted where anatomically and clinically feasible. FINDINGS: Laterality: Bilateral Examined veins: Common femoral, femoral, popliteal, peroneal, posterior tibial, anterior tibial Proximal greater saphenous The examined veins are patent with normal grayscale appearance and normal compressibility where anatomically feasible. Normal color Doppler flow. Normal venous waveforms on duplex Doppler ultrasound with normal augmentation. A specific area of swelling was targeted in the left anterior proximal calf. There is subcutaneous edema but no discrete mass or cyst. IMPRESSION: No deep vein thrombosis in either lower extremity. Discussed these findings with Mr. Mckoy. Manual recheck by myself of his blood pressure is 170/90. D-dimer is mildly elevated at 1.33. This might be related to this subcutaneous edema or might actually have some pulmonary emboli. He is not hypoxic here. There may be some cardiac stress/heart failure contributing to his exertional dyspnea -- clarified that not just with walking but when going up stairs for example. Will go ahead and do IV contrasted CT scan Reviewing labs I do see mild elevation in his creatinine at 1.5 -- this is higher than prior. I did review CT images. Ground-glass opacities as noted below are appreciated by me. TECHNIQUE: CT chest pulmonary angiogram acquired with 95 cc of Isovue 370 IV contrast. COMPARISON: None. FINDINGS: No evidence of pulmonary embolus. The main pulmonary artery is normal in caliber. Aortic atherosclerosis. The nonopacified thoracic aorta is otherwise unremarkable. Coronary artery calcifications. Heart size is within normal limits. No pleural or pericardial effusions. No pathologic lymphadenopathy. Soft tissues of the thoracic wall are unremarkable. No pneumothorax. Central airways are patent. Mild basilar ground-glass opacities, left greater than right. The lungs are otherwise clear. Visualized upper abdomen is unremarkable. Degenerative changes of the spine. No acute or suspicious osseous abnormality. IMPRESSION: 1. No evidence of pulmonary embolus. 2. Mild basilar ground-glass opacities likely represent incidental subsegmental atelectasis. However, infectious or inflammatory etiologies could be considered in the appropriate clinical setting. I suppose it is possible there is some sort of occult injury or lesion otherwise in the fibula or tibia maybe a periosteal reaction though he does not seem to have pain in this area consistent with that. He does report a history of fracture in the area of swelling chronically. He also notes that the swelling has gone down over time in the ER with his legs elevated. Tib fib of left leg reviewed by me does show swelling in the fibula consistent with a prior injury. No occult anomaly. Technique: Left tibia and fibula 2 views. Comparison: None. 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 Chronic proximal fibular diaphysis fracture deformity. No evidence of an acute or dislocation Soft tissues: Superficial soft tissue swelling about the leg, most pronounced along the superolateral component. Impression: No evidence of an acute fracture. Superficial soft tissue swelling about the leg is nonspecific, but could reflect cellulitis. Extensive evaluation. Noting elevating creatinine mildly. Otherwise exam is overall reassuring. Some ground-glass opacity noted on CT imaging of uncertain significance. Also checked a COVID in case there might be some lingering symptoms causing some of this exertional dyspnea. Medical Records Medical records reviewed: Yes I reviewed the patient's medical records Lab Data Lab results reviewed: Yes I reviewed the patient's lab results Labs: Lab Results 04/06/24 04/06/24 04/06/24 Range/Units 11:45 11:52 12:04 WBC 5.62 (4.50-11.00) K/uL RBC 4.19 L (4.30-5.90) m/uL Hgb 12.6 L (13.5-17.5) gm/dL Hct 38.9 (37.0-53.0) % MCV 93 (80-100) fL MCH 30 (26-34) pg MCHC 32 (32-36) gm/dL RDW Coeff of Dena 14.2 (11.5-15.5) % Plt Count 177 (140-440) K/uL Neut % (Auto) 69.8 (42.0-72.0) % Lymph % (Auto) 15.8 L (20-44) % Mccone % (Auto) 10.1 (0.0-11.0) % Eos % (Auto) 3.4 (0.0-7.0) % Baso % (Auto) 0.7 (0.0-3.0) % Neut # (Auto) 3.92 (1.7-7.0) K/uL Lymph # (Auto) 0.90 (0.90-2.90) K/uL Mccone # (Auto) 0.60 (0.00-0.90) K/UL Eos # (Auto) 0.19 (0.00-0.50) K/uL Baso # (Auto) 0.04 (0.00-0.30) K/uL Abs Immat Gran (auto) 0.01 (0.00-0.30) K/uL Imm/Tot Granulo (auto) 0.2 % D-Dimer Quant (PE/DVT) 1.33 H (0.00-0.50) ug/ml Sodium 134 L (135-149) mmol/L Potassium 4.7 (3.6-5.1) mmol/L Chloride 101 (96-114) mmol/L Carbon Dioxide 28 (20-32) mmol/L Anion Gap 5 L (7-15) mEq/L BUN 23 (7-30) mg/dL Creatinine 1.5 (0.5-1.5) mg/dL Estimated Creat Clear 43.26 Estimated GFR 48 ml/min Glucose 100 (60-115) mg/dL Calcium 8.8 (8.4-10.6) mg/dL Magnesium 2.3 (1.5-2.6) mg/dL Total Bilirubin 0.6 (0.1-1.5) mg/dL Direct Bilirubin 0.3 (0.0-0.5) mg/dL AST 23 (12-35) U/L ALT 15 (4-50) U/L Alkaline Phosphatase 71 (40-150) U/L Troponin I < 0.01 L (0.01-0.04) ng/mL NT-Pro-B Natriuret Pep 500 pg/mL Total Protein 7.0 (6.0-8.3) g/dL Albumin 4.3 (3.3-5.0) g/dL Urine Color Yellow (Yellow) Urine Appearance Clear (Clear) Urine pH 6.0 (5.0-8.5) Ur Specific [employer] 1.015 (1.000-1.030) Urine Protein 1+ A (Negative) Urine Glucose (UA) Negative (Negative) Urine Ketones Negative (Negative) Urine Blood Trace-intact A (Negative) Urine Nitrite Negative (Negative) Urine Bilirubin Negative (Negative) Urine Urobilinogen 0.2 (0.2-1.0) Ur Leukocyte Esterase Negative (Negative) Urine RBC 2-5 A (0-2) Urine WBC 0-2 (0-5) Ur Squamous Epith Cells Few (None-Few) Urine Bacteria None (None) SARS-CoV-2 (PCR) (Negative) Influenza Type A (PCR) (Negative) Influenza Type B (PCR) (Negative) POC Troponin I 0.00 L (0.01-0.04) ng/ml 04/06/24 Range/Units 13:20 WBC (4.50-11.00) K/uL RBC (4.30-5.90) m/uL Hgb (13.5-17.5) gm/dL Hct (37.0-53.0) % MCV (80-100) fL MCH (26-34) pg MCHC (32-36) gm/dL RDW Coeff of Dena (11.5-15.5) % Plt Count (140-440) K/uL Neut % (Auto) (42.0-72.0) % Lymph % (Auto) (20-44) % Mccone % (Auto) (0.0-11.0) % Eos % (Auto) (0.0-7.0) % Baso % (Auto) (0.0-3.0) % Neut # (Auto) (1.7-7.0) K/uL Lymph # (Auto) (0.90-2.90) K/uL Mccone # (Auto) (0.00-0.90) K/UL Eos # (Auto) (0.00-0.50) K/uL Baso # (Auto) (0.00-0.30) K/uL Abs Immat Gran (auto) (0.00-0.30) K/uL Imm/Tot Granulo (auto) % D-Dimer Quant (PE/DVT) (0.00-0.50) ug/ml Sodium (135-149) mmol/L Potassium (3.6-5.1) mmol/L Chloride (96-114) mmol/L Carbon Dioxide (20-32) mmol/L Anion Gap (7-15) mEq/L BUN (7-30) mg/dL Creatinine (0.5-1.5) mg/dL Estimated Creat Clear Estimated GFR ml/min Glucose (60-115) mg/dL Calcium (8.4-10.6) mg/dL Magnesium (1.5-2.6) mg/dL Total Bilirubin (0.1-1.5) mg/dL Direct Bilirubin (0.0-0.5) mg/dL AST (12-35) U/L ALT (4-50) U/L Alkaline Phosphatase (40-150) U/L Troponin I (0.01-0.04) ng/mL NT-Pro-B Natriuret Pep pg/mL Total Protein (6.0-8.3) g/dL Albumin (3.3-5.0) g/dL Urine Color (Yellow) Urine Appearance (Clear) Urine pH (5.0-8.5) Ur Specific [employer] (1.000-1.030) Urine Protein (Negative) Urine Glucose (UA) (Negative) Urine Ketones (Negative) Urine Blood (Negative) Urine Nitrite (Negative) Urine Bilirubin (Negative) Urine Urobilinogen (0.2-1.0) Ur Leukocyte Esterase (Negative) Urine RBC (0-2) Urine WBC (0-5) Ur Squamous Epith Cells (None-Few) Urine Bacteria (None) SARS-CoV-2 (PCR) Negative SARS-CoV-2 (Negative) Influenza Type A (PCR) Negative PCR FLU A (Negative) Influenza Type B (PCR) Negative PCR FLU B (Negative) POC Troponin I (0.01-0.04) ng/ml ECG Data Attestation: I personally reviewed and interpreted this ECG as follows: (Sinus bradycardia with a PVC. Rate of 59 no ischemic changes appreciated) Discharge Plan Discharge Clinical Impression: Peripheral edema, High blood pressure, Radicular low back pain Patient Disposition: Home, Self-Care Condition: Improved Additional Instructions: Your evaluation I would say was overall reassuring. With your blood pressure measurements I would follow-up in a week or so in clinic if possible. Review again your medications and need for each one. Continue to elevate your legs as this does appear to be beneficial. If this shortness of breath with exertion continues, you might need recheck of a chest x-ray, presumptive treatment for infection or maybe more of a cardiac evaluation which might include an echocardiogram. While this is not your diagnosis for sure, these exercises as indicated in this handout might be beneficial for you. Prescriptions: No Action aspirin 81 mg tablet,delayed release (DR/EC) 81 mg PO .3-4x/week naproxen sodium 220 mg capsule 220 mg PO BID mycophenolate mofetil 500 mg tablet 500 mg PO .QD PRN latanoprost 0.005 % drops 1 drp ophthalmic (eye) QPM atenolol 50 mg tablet 50 mg PO DAILY Qty: 90 3RF lisinopril 40 mg tablet 40 mg PO QDAY Qty: 90 3RF simvastatin 10 mg tablet 10 mg PO .Bedtime Qty: 90 3RF omeprazole 20 mg capsule,delayed release(DR/EC) 20 mg PO DAILY Qty: 90 3RF clobetasol 0.05 % ointment 1 applic topical BID PRN ferrous sulfate [Feosol] 325 mg (65 mg iron) tablet 325 mg PO .3-4x/week furosemide [Lasix] 20 mg tablet 20 mg PO QAM Qty: 7 0RF doxazosin 4 mg tablet 4 mg PO QHS Qty: 30 1RF Zyrtec 10 mg capsule 10 mg PO QDAY PRN (Reason: allergy symptoms) Qty: 90 3RF Follow Up/Referrals: Kedar Lopez MD [Primary Care Provider] - Stand Alone Forms: [facility] Info Instructions
--- NOTE | 2024-04-06 11:44 | CRLHL7_ITS ---
For Patients: As a result of the Century Cures Act, medical imaging exams and procedure reports are released immediately into your electronic medical record. You may view this report before your referring provider. If you have questions, please contact your health care provider. INDICATION: Worsening lower extremity swelling and exertional dyspnea COMPARISON: None. TECHNIQUE: Mcconnell-scale, color, and duplex Doppler imaging of the bilateral lower extremity veins. Compression and augmentation attempted where anatomically and clinically feasible. FINDINGS: Laterality: Bilateral Examined veins: Common femoral, femoral, popliteal, peroneal, posterior tibial, anterior tibial Proximal greater saphenous The examined veins are patent with normal grayscale appearance and normal compressibility where anatomically feasible. Normal color Doppler flow. Normal venous waveforms on duplex Doppler ultrasound with normal augmentation. A specific area of swelling was targeted in the left anterior proximal calf. There is subcutaneous edema but no discrete mass or cyst. IMPRESSION: No deep vein thrombosis in either lower extremity. Dictated by Corrine Gu MD @ 04/06/2024 12:46:31 PM (Electronically Signed)
[2024-04-06 12:00] LABS: Appearance Urine Clear (Clear); Bilirubin Urine Negative (Negative); Blood Urine Trace-intact (Negative); Color Urine Yellow (Yellow); Glucose Urine Negative (Negative); Ketones Urine Negative (Negative); Leukocyte Esterase Urine Negative (Negative); Nitrite Urine Negative (Negative); Protein Urine 1+ (Negative); Specific Gravity Urine 1.015 (1.000-1.030); Urobilinogen Urine 0.2 (0.2-1.0)
[2024-04-06 12:11] LABS: Basophils Absolute Auto 0.04 K/uL (0.00-0.30); Basophils Percent Auto 0.7 % (0.0-3.0); Eosinophils Absolute Auto 0.19 K/uL (0.00-0.50); Eosinophils Percent Auto 3.4 % (0.0-7.0); Hematocrit 38.9 % (37.0-53.0); Hemoglobin* 12.6 gm/dL (13.5-17.5); Immature Granulocytes Abs Auto 0.01 K/uL (0.00-0.30); Immature Granulocytes Pct Auto 0.2 %; Lymphocytes Percent Auto 15.8 % (20-44); Mean Corpuscular HGB Conc 32 gm/dL (32-36); Mean Corpuscular Hemoglobin 30 pg (26-34); Mean Corpuscular Volume 93 fL (80-100); Monocytes Percent Auto 10.1 % (0.0-11.0); Neutrophils Absolute Auto 3.92 K/uL (1.7-7.0); Neutrophils Percent Auto 69.8 % (42.0-72.0); Platelet Count* 177 K/uL (140-440); RDW Coefficient of Variation % 14.2 % (11.5-15.5); Red Blood Count 4.19 m/uL (4.30-5.90); White Blood Count* 5.62 K/uL (4.50-11.00)
[2024-04-06 12:15] LABS: Slide Review Reflex No
[2024-04-06 12:24] LABS: Squamous Epithelial Cell Urine Few (None-Few); WBC Urine 0-2 (0-5)
[2024-04-06 12:25] LABS: Albumin* 4.3 g/dL (3.3-5.0); Chloride* 101 mmol/L (96-114); Potassium* 4.7 mmol/L (3.6-5.1); Sodium* 134 mmol/L (135-149)
[2024-04-06 12:27] LABS: Creatinine* 1.5 mg/dL (0.5-1.5); Est. Creatinine Clearance* 43.26; Estimated Glomerular Filt Rate 48 ml/min
[2024-04-06 12:28] LABS: Alanine Aminotransferase* 15 U/L (4-50); Alkaline Phosphatase* 71 U/L (40-150); Anion Gap 5 mEq/L (7-15); Aspartate Amino Transferase* 23 U/L (12-35); Bilirubin Direct* 0.3 mg/dL (0.0-0.5); Bilirubin Total* 0.6 mg/dL (0.1-1.5); Blood Urea Nitrogen* 23 mg/dL (7-30); Calcium* 8.8 mg/dL (8.4-10.6); Carbon Dioxide* 28 mmol/L (20-32); Glucose* 100 mg/dL (60-115); Magnesium* 2.3 mg/dL (1.5-2.6)
[2024-04-06 12:40] LABS: D Dimer Quantitative* 1.33 ug/ml (0.00-0.50)
--- OUTSIDE RECORDS SUMMARY | 2024-04-06 12:41 | XMS_ITS | Encounter Summary ---
Author Organization [facility] Address [address], [place] [address] Care Team Providers Care Makeup Sales Advisor Name Role Phone Sam Madrigal MD [...] Care Team (Late st Contact Info) Description 02/18/2025 10:30 AM CDT Appointment [facility] [address] [place] [address]. [place] [address] Abby Maya MD [address] [place] [id number] documented as of this encounter Visit Diagnoses Not on filedocumented in this encounter Care Teams Makeup Sales Advisor Relationship Specialty Start Date End Date Sam Madrigal MD PCP - General 11/17/07 documented as of this encounter
--- OUTSIDE RECORDS SUMMARY | 2024-04-06 12:41 | XMS_ITS | Referral Summary ---
Author Organization [facility] Address [address] [place] [id number] Care Team Providers Care Yard Operator Name Role Phone Sam Madrigal MD Primary Care Provider Unavaila ble Allergies No known active allergies Medications Medication [...] of Treatment Not on file Care Teams Yard Operator Relationship Specialty Start Date End Date Sam Madrigal MD PCP - General 04/06/19
--- OUTSIDE RECORDS SUMMARY | 2024-04-06 12:41 | XMS_ITS | Encounter Summary ---
Author Organization [facility] Address [address], [place] [address] Care Team Providers Care Care Consultant Name Role Phone Sam Madrigal MD Primary Care Provider Unavaila ble Reason for Referral * Procedure/Equipment (Routine) - Authorized Specialty Diagnoses / Procedures Referred By Contac t Referred To Contact Diagnoses Obstructive sleep apnea (adult) (pediatric) Procedures Sleep Management Other MD [place] [address] [place] [address] Referral ID Status Reason Start Date Expiration Date V isits Requested Visits Authorized [id number] Authorized 01/10/2024 04/10/2025 1 1 Encounter Details Date Type Department Care Team (Late st Contact Info) Description 01/10/2024 Notes/Orders [facility] [address] [place] [address] Geovanna Headley Obstructive sleep apnea (adult) (pediatric) [...] CDT Appointment [facility] [address] [place] [address]. [place] [address] Abby Maya MD [address] [place] [phone] documented as of this encounter Visit Diagnoses Diagnosis Obstructive sleep apnea (adult) (pediatric)- Primary documented in this encounter Care Teams Care Consultant Relationship Specialty Start Date End Date Sam Madrigal MD PCP - General 11/17/07 documented as of this encounter
--- OUTSIDE RECORDS SUMMARY | 2024-04-06 12:41 | XMS_ITS | Clinical Summary ---
Author Organization [facility] Address [address], [place] [address] Care Team Providers Care Notcher Name Role Phone Sam Madrigal MD Primary Care Provider Unavaila ble Source Comments You are receiving this document as you are listed as the primary care provider,follow-up provider, or the patient has been referred to you for consultation.This is in compliance with the Medicare andPromedica Bay Park Hospitalcaid EHR Incentive Program,which states Providers who transition their patient to another setting of careor provider of care or refers their patient to another provider of care shouldprovide summary care record for each transition of care or referral. [facility] [employer] Allergies No known active allergies Medications Medication [...] WITH FLARES 180 g 6 06/18/2023 Active omeprazole (PRILOSEC) 20 MG capsuleIndications:Bu llous pemphigoid Take 1 Capsule (20 mg) by mouth daily. Take 1 hour before a meal. 90 Capsule 3 06/18/2023 06/17/2024 Active latanoprost (XALATAN) 0.005 % eye drop solution SMARTSIG:In Eye(s) 10/27/2023 Active lisinopril (ZESTRIL) 40 MG tablet Active Cetirizine HCl (ZYRTEC ALLERGY) 10 MG CAPS 12/27/2022 Active mycophenolate (CELLCEPT) 500 MG tabletIndications:Bul lous pemphigoid Take 1 Tablet (500 mg) by mouth two times a day. 180 Tablet 1 02/19/2024 02/18/2025 Active Active Problems Problem Noted Date Diagnosed Date Adenomatous polyp of colon 07/15/2019 Mixed hyperlipidemia 03/14/2017 CAREPLAN: ADVANCE DIRECTIVES/CODE STATUS 016 Overview (03/20/2017): CAREPLAN: ADVANCE DIRECTIVES/CODE STATUS/see advance directive signed 03/07/16 under media tab Secondhand smoke exposure 07/07/2012 RAY (obstructive sleep apnea) 04/22/2012 Overview (03/20/2017): RAY (severe, AHI 33, SpO2 82%) Sleep related hypoventilatio n/hypoxemia in conditions classifiable elsewhere 04/22/2012 Overview (03/20/2017): Sleep hypoxemia (SpO2 82%) CPAP/BiPAP dependence 04/22/2012 Overview (03/20/2017): CPAP dependence (11 cmH20) S/P right knee arthroscopy 03/24/2012 Benign prostatic hyperplasia 01/01/2012 Osteoarthritis of knee 12/15/2009 Overview (03/20/2017): Osteoarthritis of Knee mod-severe R medial Hyperkalemia 12/08/2007 Essential hypertension 10/16/2002 Overview (04/28/2015): Epic Resolved Problems Problem Noted Date Diagnosed Date Resolved Date DJD (Degenerative Joint Disease) of Knee 12/21/2006 12/15/2009 Overview (03/20/2017): DJD of Right Knee Mixed hyperlipidemia 10/16/2002 017 Encounters Date Type Department Care Team Description 02/24/2024 10:30 AM CDT [facility] [address] [place] [address] Colleen Alva LPN 02/19/2024 10:30 AM CDT Office Visit [facility] [address] [place] [address] Abby Maya MD Bullous pemphigoid (Primary Dx); Screening for malignant neoplasm; Multiple benign nevi; Inflamed seborrheic keratosis; Seborrheic dermatitis 01/13/2024 10:30 AM CDT [facility] [address] [place] [address] Rohan Rooney 01/10/2024 Notes/Orders [facility] [address] [place] [address] Geovanna Headley Obstructive sleep apnea (adult) (pediatric) (Primary Dx) 01/09/2024 Notes/Orders [facility] [address] [place] [address] Geovanna Headley Obstructive sleep apnea (adult) (pediatric) (Primary Dx) from Last 3 Months Immunizations Name Administration Dates Next Due Flu Vac (3+ yrs) 05/23/2011,05/25/2010 [id number] 08/11/2009,06/27/2009 Influenza IIV3 (Trivalent) F luzone Highdose, 65+ Yrs (09434) 05/05/2020,04/27/2019 Influenza IIV4 (Quadrivalent ) Fluzone, 65+ Yrs 05/05/2020 Influenza, Unspecified Formulation 05/27/2012 PCV13 (Prevnar) 04/27/2019 PPSV23 (Pneumovax) 02/29/2020, 8(Deferred: Patient Refused - until after surg 8--13) Pfizer Monovalent 12+ Purple Top 11/25/2020,04/0 03/2021 [...] Sister 2 Sister 3 Son 1 Alive David, 1972 Son 2 Alive Andrew, 1974 Social History Tobacco Use Types Packs/Day Years [...] T Respiratory Rate 17 07/07/2019 12:05 PM PAPER BAG PRESS OPERATOR Oxygen Saturation 95% 07/07/2019 12:05 PM PAPER BAG PRESS OPERATOR Inhaled Oxygen Concentration - - Weight 95.7 kg (211 lb) 03/06/2021 9:21 AM CDT Height 175.3 cm (5' 9) 01/04/2021 4:44 PM CDT Body Mass Index 31.16 01/04/2021 4:44 PM CDT Plan of Treatment Upcoming Encounters Date Type Department Care Team (Late st Contact Info) Description 02/18/2025 10:30 AM CDT Appointment [facility] [address] [facility] [address] Abby Maya MD [address] [place] [address] Health Maintenance Due Date Last Done Comments MTM Covered 1945 Medicare Annual Wellness Visit 01/05/2022 01/05/2021, 03/25/2019, 03/17/2018, Additional history exists Prediabetes: HGBA1C 03/06/2022 03/06/2021 COVID-19 Vaccine ( season) 2024 05/27/2023, 07/03/2022, 01/16/2022, Additional history exists Influenza (#1) 2024 05/27/2023, 10/2021, 05/16/2021, Additional history exists Colonoscopy 07/07/2024 [...] Procedure Name Priority Date/Time Associated Diagnosis Comments CRYOTHERAPY SKIN LESION Routine 02/19/2024 10:42 AM CDT Inflamed seborrheic keratosis HGB A1C Routine 03/06/2021 10:24 AM CDT Impaired fasting glucose LIPID PANEL & DIRECT LDL (IF NEEDED) Routine 03/02/2021 7:56 AM CDT Mixed hyperlipidemia COLONOSCOPY Routine 07/07/2019 11:16 AM PAPER BAG PRESS OPERATOR Screen for colon cancer HEPATITIS C ANTIBODY, WITH REFLEX Routine 03/17/2018 9:22 AM CDT Screening for viral disease from Last 3 Months or Most Recently Relevant to Health Maintenance Results * Cryotherapy, skin lesion (No CPT) (02/19/2024 10:42 AM CDT) Abby Maya MD DERM PROCEDURE ORDER LATESHA EXTERNAL RESULTS * Hgb A1C (03/06/2021 10:24 AM CDT) Hemoglobin A1C 5.5 <=5.6 % 03/06/2021 5:09 PM CDT [facility] Blood Venipuncture / Unknown 03/06/2021 10:24 AM CDT 03/06/2021 10:24 AM CDT Sam Madrigal MD LAB_1 [facility] [address] [phone] * Lipid Panel and Direct LDL(If Needed) (03/02/2021 7:56 AM CDT) Cholesterol 150 0 - 199 mg/dL 03/02/2021 11:43 AM CDT [facility] Triglyceride 82 <=149 mg/dL 03/02/2021 11:43 AM CDT [facility] HDL Cholesterol 51 >=40 mg/dL 03/02/2021 11:43 AM CDT [facility] LDL, Calculated 83 <130 mg/dL 03/02/2021 11:43 AM CDT [facility] Non HDL Chol, Calculated 99 <=159 mg/dL 03/02/2021 11:43 AM CDT [facility] Cholesterol/HDL Ratio 2.9 03/02/2021 11:43 AM CDT [facility] Hours Fasting 12 03/02/2021 11:43 AM CDT [facility] Blood Venipuncture / Unknown 03/02/2021 7:56 AM CDT 03/02/2021 7:56 AM CDT Sam Madrigal MD LAB_1 Performing Organization Address City/State/[facility] Co de Phone Number [facility] [address] [id number], [facility] [phone] [facility] [address] [place] [address], [facility] [phone] * COLONOSCOPY [[id number]] (07/07/2019 11:16 AM PAPER BAG PRESS OPERATOR) 07/07/2019 11:1 6 AM PAPER BAG PRESS OPERATOR Narrative [facility] ([facility]) - 07/07/2019 11:45 AM PAPER BAG PRESS OPERATOR Instrument Name: 183 Indications: ? Screening for [...] Procedure Code(s): ?? --- Professional --- ? 91787, PT, Colonoscopy, flexible; with removal of ? [...] older (additional time may be reported with 93288, as ? appropriate) Diagnosis Code(s): ?? --- Professional --- ? Z12.11, Encounter for screening for malignant ? neoplasm of colon ? K64.8, Other hemorrhoids ? D12.0, Benign neoplasm of cecum ? K57.30, Diverticulosis of large intestine without ? perforation or abscess without bleeding CPT copyright 2018 [employer]. All rights reserved. The codes documented in this report are preliminary and upon privacy specialist review may be revised to meet current [...] pathology results. Procedure Code(s): --- Professional --- 51303, PT, Colonoscopy, flexible; with removal of tumor(s), polyp(s), or other lesion(s) by snare technique G0500, PT, Moderate sedation services provided by the same physician or other qualified health care manager performing a gastrointestinal endoscopic service that sedation supports, requiring the presence of an independent trained observer to assist in the monitoring of the patient's level of consciousness and physiological status; initial 15 minutes of intra-service time; patient age 5 years or older (additional time may be reported with 33960, as appropriate) Diagnosis Code(s): --- Professional --- Z12.11, Encounter for screening for malignant neoplasm of colon K64.8, Other hemorrhoids D12.0, Benign neoplasm of cecum K57.30, Diverticulosis of large intestine without perforation or abscess without bleeding CPT copyright 2018 [employer]. All rights reserved. The codes documented in this report are preliminary and upon privacy specialist review may be revised to meet current compliance requirements. Attending Participation: Emerson Clifford MD 07/07/2019 11:45:26 AM This report has been signed electronically. Number of Addenda: 0 Note Initiated On: 07/07/2019 11:16 AM Emerson Clifford MD [facility] ([facility]) [place], [place] * Hepatitis C Antibody, with Reflex (03/17/2018 9:22 AM CDT) Anti-HCV Negative (Non Reactive) [facility] Comment: Antibodies to HCV not detected. Does not exclude the possibility of exposure to HCV. 03/17/2018 9:22 AM CDT 03/17/2018 9:23 AM CDT Narrative [facility] - 03/17/2018 3:53 PM CDT Performed at [facility], [address] [place] [address] ??[id number] Sam Madrigal MD LAB_1 Social [facility] Beyond [phone] from Last 3 Months or Most Recently Relevant to Health Maintenance Care Teams Notcher Relationship Specialty Start Date End Date Sam Madrgial MD PCP - General 11/17/07
--- OUTSIDE RECORDS SUMMARY | 2024-04-06 12:41 | XMS_ITS | Encounter Summary ---
Author Organization [facility] Address [address], [place] [address] Care Team Providers Care Analytical Chemistry Teacher Name Role Phone Sam Madrigal MD Primary Care Provider Unavaila ble Encounter Details Date Type Department Care Team (Latest Contact Info) Description 05/27/2019 Flowsheet External to External, [place] [address] BP Social History Tobacco Use Types Packs/Day [...] Appointment [facility] 401 [place] [address] Abby Maya MD [address] [place] [address] documented as of this encounter Visit Diagnoses Not on filedocumented in this encounter Care Teams Analytical Chemistry Teacher Relationship Specialty Start Date End Date Sam Madrigal MD PCP - General 11/17/07 documented as of this encounter
--- OUTSIDE RECORDS SUMMARY | 2024-04-06 12:41 | XMS_ITS | Encounter Summary ---
Author Organization [facility] Address [address] [place] [address] Care Team Providers Care Reel Cart Operator Name Role Phone Sam Madrigal MD Primary Care Provider Unavaila ble Encounter Details Date Type Department Care Team (Late st Contact Info) Description 07/07/2019 Consent for Procedure/Treatme nt [facility] Department INFORMED CONSENT RECORD Social History [...] Department Care Team (Late Contact Info) Description 02/18/2025 10:30 AM CDT Appointment [facility] [address] [place] [address]. [place] [address] Abby Maya MD [address] [place] [id number] documented as of this encounter Visit Diagnoses Not on filedocumented in this encounter Care Teams Reel Cart Operator Relationship Specialty Start Date End Date Sam Madrigal MD PCP - General 11/17/07 documented as of this encounter
--- OUTSIDE RECORDS SUMMARY | 2024-04-06 12:41 | XMS_ITS | Encounter Summary ---
[facility] Address [address], [place] [address] Care Team Providers Care Spike Maker Name Role Phone Sam Madrigal MD Primary Care Provider Unavaila ble Reason for Visit * Reason Comments Skin Check No specific concerns . Encounter Details Date Type Department Care Team (Late st Contact Info) Description 02/19/2024 10:30 AM CDT Office Visit Specialty [facility] [address] [place] [address]. [place] [address] Abby Maya MD [address] [place] [address] Bullous pemphigoid (Primary Dx); Screening for malignant neoplasm; Multiple benign nevi; Inflamed seborrheic keratosis; Seborrheic dermatitis Social History Tobacco Use Types Packs/Day Years [...] this encounter Patient Instructions * Patient Instructions* Bry Metz RN - 02/19/2024 10:30 AM CDT - See how things go without the mycophenolate. - If areas start flaring back up start the clobetasol first. If things worsen go back to mycophenolate. - Let us know if you go back on mycophenolate, we will have to do some blood tests. - Follow up with PCP for vessels. Please schedule your follow - up appointment: Reason: Skin Check Provider: Dr. Maya Time frame (approximately) : 1 year(s) FBE Appt. Length: 15 minutes Survey Data Technician: No Clinic Location: Specialty Center Your Next Dermatology Appointment is Date: Time: Sunscreen Instructions Sunscreens come in two flavors: physical blockers (which contain titanium dioxide or zinc oxide) and chemical blockers (which have chemicals that block the harmful rays from the sun). Use of physical blockers (containing titanium dioxide or zinc oxide) may help to minimize irritation due to sunscreen use. We recommend these as they simply block the rays of the sun. Examples of sunscreens with physical sunblock molecules (no chemical sunblock molecules) include: Aveeno Active Naturals Natural Protection Mineral Block SPF30 (regular and baby) Blue Lizard sensitive SPF30 (www.Smarter Agent Mobile.Transpera) Blue Lizard baby SPF30+ (www.Smarter Agent Mobile.Transpera) Neutrogena Sensitive Skin SPF 30, Neutrogena Sensitive Skin SPF 60+ Vanicream sensitive skin SPF30 and SPF60 (www.vanicream.Transpera) Walgreen???s Sensitive Skin SPF 70 Neutrogena pure and free facial lotion SPF50 Many local pharmacies and [employer] stores carry some of these options, or you may purchase them online at wwwPeerio<http://Living Proof/>, wwwKingland Companies<http://WedWu.Ignyta/>, etc. Tinted sunscreens (more expensive but don't look white and are smooth to apply): Skinceuticals Physical Fusion SPF 50 - about $30 and available at [employer] in stores La Bruce Posay Antihelios mineral sunscreen SPF 50 Jasmin THOMAS Physical Broad Spectrum SPF 41 - this is my favorite and available on SellStage, GetBulb, and PromiseUP (not found in stores and about $30) Epionce Daily Shield Lotion Tinted SPF 50 Baby Sunscreens: Aveeno baby pink Neutrogena baby - this is my favorite for kids Mustela baby sun screen Blue lizard baby Can apply to limited areas in infants less than 6 months if out for extended periods Sun protective clothing Can use desitin as sunscreen in a pinch Recommendations to protect yourself from the sun: * Sun protection: including the wearing of hats, long-sleeved, and sun- protective clothing; * Sun avoidance: staying out of the sun during the middle of the day (between 10 am and 4 pm) when the sun is strongest and can cause the most damage; * Self-examinations: where appropriate, the patient with the assistance of parents, should monitor the skin monthly for any obvious changes in the skin, and if moles show changes in size, shape, color, or character, the family should contact us or their primary physician to discuss re-evaluation -- Rit Sunguard: also available from [employer] and will provide SPF 30 protection to clothes for up to 30 washes -- Coolibar sun protective clothing: available online through the company website or [employer] to find coupons available, since they are almost always 15% off -- Saturday Afternoons hats and rash guards (available online) POST-TREATMENT WITH CRYOSURGERY (LIQUID NITROGEN THERAPY) You have just had a treatment by your doctor with liquid nitrogen. This is also known as cryosurgery, which means cold surgery. This technique of destroying tissue is used often in the practice of dermatology, most commonly for problems such as warts and precancerous spots called actinic keratosis. The extreme cold of this treatment (-196 degrees Centigrade) allows your doctor to remove skin lesions by freezing them. The results are not immediate, but rather take several days or weeks to occur. Several treatments are required to totally remove a thick lesion like a wart. Scarring is rare,but the skin may become somewhat television technician or darker in the treated area. Your doctor cannot predict what type of reaction you will have from this treatment, because it depends on how sensitive your skin is to cold. Generally, the longer the treatment time, the stronger the reaction of the skin Things that you can expect to see may be: A pink or red color change of the skin A sore/crust A water blister A blood blister Swelling or puffiness of eyelid if a lesion was treated close to the eye If you do get a sore or blister, the site should be cared for to prevent infection, and to minimizeany scarring. Following these directions until the spot heals: Gently clean the wound daily with soap and water If you get a blister, allow the blister to collapse on its own If the blister opens up and drains kept it clean with soap and water, Vaseline and a bandage until drainage is gone Inspect the site for infection daily. Signs to look for are: Redness around and/or red streaks extending from the wound Increasing tenderness Fever or chills For minor discomfort, you may take Tylenol 325mg tablets (one or two every 4 to 6 hours as needed). For any swelling, you may use ice or cool compress to the area two to three times per day for 5-10 minutes at a time. If you notice signs of infection, or if you have any questions, call your Dermatology Clinic. documented in this encounter Progress Notes * Abby Maya MD - 02/19/2024 10:30 AM CDT Dermatology Note HPI: Kang Mckoy is a 78 y.o. old male who presents for a skin check. He has tapered down CellCept - took one a day for 3 months and now is out of medication. Interestedin seeing how things go totally off his med. Was on CellCept 500 mg BID since April 2023. No rash, minimal itching. Spot treats itchy areas on flanks with clobetasol. Chief Complaint Patient presents with Skin Check No specific concerns. Dermatology Visit Questionnaire (Mychart) 02/15/2024 7:26 PM CDT - Filed by Patient What's the main skin concern you'd like to discuss during your visit? NA. Annual visit What prescribed or hdtd-pen-yhhblul medications, supplements, ointments or creams have you used foryour skin concern in the past? Mycophenolate, Clobetasol Have you seen someone for your skin concern outside of the [facility] network? No Labs: CMP WNL 01/2024 (has outside records) CBC WNL 10/2023 Derm History: BP (biopsy proven) - 04/2023 [...] atypical nevi. Social History: [employer] in [place], former smoker. No smokeless tobacco. 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 Medications: has a current medication list which includes the following prescription(s): amlodipine, aspirin, atenolol, zyrtec allergy, clobetasol, hydroxyzine hcl, latanoprost, lisinopril, mycophenolate, naproxen sodium, omeprazole, and simvastatin. Allergies: has No Known Allergies. General: This is a WDWN male sitting comfortably in no distress. Neuro: Very pleasant and cooperative. Alert and oriented x 3 Skin: Areas examined included the scalp, face, neck, chest, back, abdomen, buttocks, bilateral upper and lower extremities including hands, feet, digits and nails. Pertinent findings include: 1. Torso clear 2. Numerous stuck on brown papules on cheeks, torso 3. Scalp clear 4. Few scattered benign nevi 5. Right chest with verrucous papule Assessment/Plan: 1. Bullous pemphigoid, quiescent. Discussed if itching, rash recurs, he will first restart clobetasol ointment BID PRN. Then he can restart CellCept 500 mg BID - would get labs done after restarting.HE WILL CALL TO UPDATE ME IF FLARING. 2. Seborrheic keratoses. Benign, reassurance. 3. Seborrheic dermatitis. Continue OTC dandruff shampoo. Has mometasone solution for scalp PRN. 4. Normal dermal and junctional nevi. Benign. Reassurance provided. 5. Irritated and inflamed seborrheic keratoses x 1. Liquid nitrogen was applied for 10-12 seconds to the skin lesion and the expected blistering or scabbing reaction explained. Do not pick at the area. Patient reminded to expect hypopigmented scars from the procedure. Return if lesion fails to fully resolve. I recommend diligent sun protection (including sunscreen SPF 30 or higher, hat, sunglasses, long sleeved clothing, avoidance of tanning beds, avoidance of sun between 10 am and 4 pm), monthly self skin exam, and return to clinic annually or as needed for any new or changing growths. Abby Maya MD 02/19/2024 documented in this encounter Plan of Treatment Upcoming Encounters Date Type Department Care Team (Late st Contact Info) Description 02/18/2025 10:30 AM CDT Appointment [facility] 401 [facility] [place] [address] Abby Maya MD [address] [place] [phone] documented as of this encounter Procedures Procedure Name Priority Date/Time Associated Diagnosis Comments CRYOTHERAPY SKIN LESION Routine 02/19/20 10:42 AM CDT Inflamed seborrheic keratosis documented in this encounter Results * Cryotherapy, skin lesion (No CPT) (02/19/2024 10:42 AM CDT) Abby Maya MD DERM PROCEDURE ORDER LATESHA EXTERNAL RESULTS documented in this encounter Visit Diagnoses Diagnosis Bullous pemphigoid- Primary Pemphigoid Screening for malignant neoplasm Screening for unspecified malignant neoplasm Multiple benign nevi Benign neoplasm of skin, site unspecified Inflamed seborrheic keratosis Seborrheic dermatitis Seborrheic dermatitis, unspecified documented in this encounter Care Teams Spike Maker Relationship Specialty Start Date End Date Sam Madrigal MD PCP - General 11/17/07 documented as of this encounter
--- OUTSIDE RECORDS SUMMARY | 2024-04-06 12:41 | XMS_ITS | Encounter Summary ---
Author Organization [facility] Address [address], [place] [address] Care Team Providers Care Shim Plug Cutter Name Role Phone Sam Madrigal MD Primary Care Provider Unavaila ble Encounter Details Date Type Department Care Team (Latest Contact Info) Description 03/29/2015 Flowsheet External to External, [place] [address] HOME BP CHECKS Social History Tobacco Use [...] 401 [facility] 401 [facility] [place] [address] Abby Maya MD [address] [place] [phone] documented as of this encounter Visit Diagnoses Not on filedocumented in this encounter Care Teams Shim Plug Cutter Relationship Specialty Start Date End Date Sam Madrigal MD PCP - General 11/17/07 documented as of this encounter
--- OUTSIDE RECORDS SUMMARY | 2024-04-06 12:41 | XMS_ITS | Encounter Summary ---
[facility] Address [address] [place] [address] Care Team Providers Care Retail Pharmacist Name Role Phone Sam Madrigal MD Primary Care Provider Unavaila ble Reason for Referral * Procedure/Equipment (Routine) - New Request Specialty Diagnoses / Procedures Referred By Casey ivy Referred To Contact Diagnoses Obstructive sleep apnea (adult) (pediatric) Procedures Positive Airway Pressure - Replacement/Repair Donis Luong APRN, CNP [address] [place] [address] Referral ID Status Reason Start Date Expiration Date V isits Requested Visits Authorized [id number] New Request 01/09/2024 04/09/2025 1 1 Encounter Details Date Type Department Care Team (Late st Contact Info) Description 01/09/2024 Notes/Orders [facility] [address] [facility] [place] [address] Geovanna Headley Obstructive sleep apnea [...] CDT Appointment Specialty Center [address] [place] [address]. [place] [address] Abby Maya MD 401 [place] [address] documented as of this encounter Visit Diagnoses Diagnosis Obstructive sleep apnea (adult) (pediatric)- Primary documented in this encounter Care Teams Retail Pharmacist Relationship Specialty Start Date End Date Sam Madrigal MD PCP - General 11/17/07 documented as of this encounter
--- OUTSIDE RECORDS SUMMARY | 2024-04-06 12:41 | XMS_ITS | Encounter Summary ---
Author Organization [facility] Address [address], [place] [address] Care Team Providers Care Single Needle Tufting Machine Operator Name Role Phone Sam Madrigal MD Primary Care Provider Unavaila ble Reason for Visit * Reason Comments EQUIPMENT EVALUATION Picking up loaner Encounter Details Date Type Department Care Team (Late st Contact Info) Description 01/13/2024 10:30 AM CDT Home [facility] [address] [place] [address] Rohan Rooney Social History Tobacco [...] AM CDT [facility] for a defective PAP device. [...] before the replacement. Defective Serial numbers are: [id number] The defective device was replaced by a loaner device received by the patient. Serial numbers for the loaner are [id number]. The loaner unit had 1,227 hours. The $250.00 deposit for the loanerwas taken via [employer] and deposit is set to run on 04/14/2024. Pressure settings on the loaner were Auto CPAP with a pressure of [id number]. The patient will be using the loaner to achieve compliance so we can get an auth for resupply. MARIE documented in this encounter Plan of Treatment Upcoming Encounters Date Type Department Care Team (Late st Contact Info) Description 02/18/2025 10:30 AM CDT Appointment Specialty Center [address] [place] [address]. [place] [address] Abby Maya MD [address] [place] [address] documented as of this encounter Visit Diagnoses Not on filedocumented in this encounter Care Teams Single Needle Tufting Machine Operator Relationship Specialty Start Date End Date Sam Madrigal MD PCP - General 11/17/07 documented as of this encounter
--- OUTSIDE RECORDS SUMMARY | 2024-04-06 12:41 | XMS_ITS | Encounter Summary ---
Author Organization [facility] Address [address] [place] [address] Care Team Providers Care Senior Relationship Manager Name Role Phone Sam Madrigal MD Primary Care Provider Unavaila ble Encounter Details Date Type Department Care Team (Late st Contact Info) Description 02/21/2015 Correspondence [facility] [address] [place] [address]. [place] [address] Sam Madrigal MD RX CLARIFICATION NEEDED Social [...] Appointment [facility] [address] [place] [address]. [place] [address] Abby Maya MD [address] [place] [address] documented as of this encounter Visit Diagnoses Not on filedocumented in this encounter Care Teams Senior Relationship Manager Relationship Specialty Start Date End Date Sam Madrigal MD PCP - General 11/17/07 documented as of this encounter
--- OUTSIDE RECORDS SUMMARY | 2024-04-06 12:41 | XMS_ITS | Encounter Summary ---
Author Organization [facility] Address [address] [place] [address] Care Team Providers Care Installation Helper Name Role Phone Sam Madrigal MD [...] [facility] 401 [facility] [place] [address] Abby Maya MD 401 [place] [address] documented as of this encounter Visit Diagnoses Not on filedocumented in this encounter Care Teams Installation Helper Relationship Specialty Start Date End Date Sam Madrigal MD PCP - General 11/17/07 documented as of this encounter
--- OUTSIDE RECORDS SUMMARY | 2024-04-06 12:41 | XMS_ITS | Clinical Summary ---
Author Organization [facility] Address [address] [place] [address] Care Team Providers Care Justice Court Judge Name Role Phone Sam Madrigal MD Primary [...] Booster 12/14/2020 12/14/2010 COVID-19 Vaccine ( - season) 2024 Influenza Vaccine (#1) 2024 05/23/2011, [address] Relationship Specialty Start Date End Date Sam Madrigal MD PCP - General 04/06/19
--- OUTSIDE RECORDS SUMMARY | 2024-04-06 12:41 | XMS_ITS | Encounter Summary ---
Author Organization [facility] Address [address], [place] [address] Care Team Providers Care Job Cost Estimator Name Role Phone Sam Madrigal MD Primary Care Provider Unavaila ble Reason for Visit * Reason Comments Auto CPAP (new) Replacement Encounter Details Date Type Department Care Team (Late st Contact Info) Description 02/24/2024 10:30 AM CDT Home Medical [facility] [address] [facility] [place] [address] Colleen Alva LPN Social History Tobacco Use Types Packs/Day Years [...] as of this encounter Progress Notes * Colleen Alva LPN - 02/24/2024 10:30 AM CDT [facility] CPAP Note [facility] device. Patient was set up on ResMed S10 Auto CPAP with pressure of 11-15 cm H2O. EPR was set to 1. Patient was set up with heated humidifier. Patient received NO tubing-has at home. Patient was fitted with a ResMed A irTouch F20 medium full face mask. Ramp was set to off. Serial numbers: [id number] Additional supplies, settings and/or notes: filters . Patient returned 10 loaner device. SN: [id number] DN 467. [facility] Patient is set-up in [employer] and will be uploading sleep data via Modem. *MODEM FEE PAID Patient will not be followed by the [facility] SPM program due to Replacement PAP. Patient was able to demonstrate adequate use of device and mask. Risks and contraindications of masks with magnets were reviewed with patient. Readiness and Motivational Therapy was reviewed with patient. Goals of therapy set with patient included: 5 hours usage. Additional goals set? No. Timeframe established to meet goals is: 60 days. Discussed with patient monitoring and follow up program and that we will contact them if we see that they are not meeting their goal. documented in this encounter Plan of Treatment Upcoming Encounters Date Type Department Care Team (Late st Contact Info) Description 02/18/2025 10:30 AM CDT Appointment Specialty Center [address] [place] [address]. [place] [address] Abby Maya MD 401 [place] [address] documented as of this encounter Visit Diagnoses Not on filedocumented in this encounter Care Teams Job Cost Estimator Relationship Specialty Start Date End Date Sam Madrigal MD PCP - General 11/17/07 documented as of this encounter
--- OUTSIDE RECORDS SUMMARY | 2024-04-06 12:41 | XMS_ITS | Encounter Summary ---
Author Organization [facility] Address [address] [place] [address] Care Team Providers Care Maintenance Repairer Name Role Phone Sam Madrigal MD Primary Care Provider Unavaila ble Encounter Details Date Type Department Care Team (Late st Contact Info) Description 06/06/2015 Correspondence None No Primary/Referring, Phy HME EQUIPMENT DIRECTOR IT PROJECT TICKET Social History Tobacco Use Types Packs/Day [...] Appointment Specialty Center [address] [facility] 401 [facility] [place] [address] Abby Maya MD [address] [place] [phone] documented as of this encounter Visit Diagnoses Not on filedocumented in this encounter Care Teams Maintenance Repairer Relationship Specialty Start Date End Date Sam Madrigal MD PCP - General 11/17/07 documented as of this encounter
--- OUTSIDE RECORDS SUMMARY | 2024-04-06 12:41 | XMS_ITS | Encounter Summary ---
Author Organization [facility] Address [address] [place] [address] Care Team Providers Care Environmental Services Floor Tech Name Role Phone Sam Madrigal MD Primary Care Provider Unavaila ble Encounter Details Date Type Department Care Team (Late Contact Info) Description 06/21/2014 Correspondence None No Primary/Referring, Phy EQUIPMENT TEAM PHYSICIAN TICKET Social History Tobacco Use Types Packs/Day [...] Appointment Specialty Center [address] [facility] 401 [facility] [place] [address] Abby Maya MD 401 [place] [address] documented as of this encounter Visit Diagnoses Not on filedocumented in this encounter Care Teams Environmental Services Floor Tech Relationship Specialty Start Date End Date Sam Madrigal MD PCP - General 11/17/07 documented as of this encounter
--- OUTSIDE RECORDS SUMMARY | 2024-04-06 12:41 | XMS_ITS | Clinical Summary ---
Author Organization [facility] Address [place], [place] [address] Care Team Providers Care Business Control Manager Name Role Phone Sam Madrigal Bennie Primary [...] for age 50+ (1 of 2) 1997 RSV vaccine for adults or pr egnancy (1 - 1-dose 60+ series) 2007 Pneumococcal series for age 65+ (1 of 1 - PCV) 2012 BMI (ht and wt on same day) for age 18+ 04/26/2017 0 04/26/2016 COVID-19 vaccine series (3 - 2022- season) 2024 11/25/2020, 11/04/2020 Influenza for age 65+ 03/29/2024 Care Teams Business Control Manager Relationship Specialty Start Date End Date Sam Madrigal PCP - General Family Practice 04/26/16
--- OUTSIDE RECORDS SUMMARY | 2024-04-06 12:41 | XMS_ITS | Encounter Summary ---
Author Organization [facility] Address [address] [place] [address] Care Team Providers Care Field Geologist Name Role Phone Sam Madrigal MD Primary Care Provider Unavaila ble Encounter Details Date Type Department Care Team (Late st Contact Info) Description 03/31/2015 Correspondence None No Primary/Referring, Phy HME EQUIPMENT BRICK SHADER TICKET Social History Tobacco Use Types Packs/Day [...] Specialty Center [address] [facility] 401 [place] [address] Abby Maya MD [address] [place] [phone] documented as of this encounter Visit Diagnoses Not on filedocumented in this encounter Care Teams Field Geologist Relationship Specialty Start Date End Date Sam Madrigal MD PCP - General 11/17/07 documented as of this encounter
--- OUTSIDE RECORDS SUMMARY | 2024-04-06 12:41 | XMS_ITS | Encounter Summary ---
Author Organization [facility] Address [address], [place] [address] Care Team Providers Care Utilization Supervisor Name Role Phone Sam Madrigal MD Primary Care Provider Unavaila ble Encounter Details Date Type Department Care Team (Late Contact Info) Description 03/18/2015 Flowsheet External to External, [place] [address] BLOOD PRESSURE CHECK Social History Tobacco Use [...] Appointment Specialty Center [address] [place] [address]. [place] [address] Abby Maya MD [address] [place] [address] documented as of this encounter Visit Diagnoses Not on filedocumented in this encounter Care Teams Utilization Supervisor Relationship Specialty Start Date End Date Sam Madrigal MD PCP - General 11/17/07 documented as of this encounter
--- OUTSIDE RECORDS SUMMARY | 2024-04-06 12:41 | XMS_ITS | Encounter Summary ---
Author Organization [facility] Address [address] [place] [address] Care Team Providers Care Electric Plater Name Role Phone Sam Madrigal MD Primary Care Provider Unavaila ble Encounter Details Date Type Department Care Team (Late st Contact Info) Description 06/25/2017 Correspondence None No Primary/Referring, Phy HME EQUIPMENT PRESIDING STEWARD TICKET CPAP Social History Tobacco Use Types [...] Appointment Specialty Center [address] [facility] [address] 401 [place] [address] Abby Maya MD [address] [place], [place] [phone] documented as of this encounter Visit Diagnoses Not on filedocumented in this encounter Care Teams Electric Plater Relationship Specialty Start Date End Date Sam Madrigal MD PCP - General 11/17/07 documented as of this encounter
--- OUTSIDE RECORDS SUMMARY | 2024-04-06 12:42 | XMS_ITS | Encounter Summary ---
Author Organization [facility] Address [address], [place] [address] Care Team Providers Care Audio Technician Name Role Phone Sam Madrigal MD [...] CDT Appointment Specialty Center [address] [place] [address]. [place] [address] Abby Maya MD [address] [place] [address] documented as of this encounter Visit Diagnoses Not on filedocumented in this encounter Care Teams Audio Technician Relationship Specialty Start Date End Date Sam Madrigal MD PCP - General 11/17/07 documented as of this encounter
--- OUTSIDE RECORDS SUMMARY | 2024-04-06 12:42 | XMS_ITS | Encounter Summary ---
Author Organization [facility] Address [address], [place] [address] Care Team Providers Care Online Media Buyer Name Role Phone Sam Madrigal MD Primary Care Provider Williea ble Encounter Details Date Type Department Care Team (Latest Contact Info) Description 01/26/2013 Flowsheet External to External, [place] [address] BP Social History Tobacco Use Types Packs/Day [...] Department Care Team ( Contact Info) Description 02/18/2025 10:30 AM CDT Appointment Specialty Center [address] [place] [address]. [place] [address] Abby Maya MD 401 [place] [address] documented as of this encounter Visit Diagnoses Not on filedocumented in this encounter Care Teams Online Media Buyer Relationship Specialty Start Date End Date Sam Madrigal MD PCP - General 11/17/07 documented as of this encounter
--- OUTSIDE RECORDS SUMMARY | 2024-04-06 12:42 | XMS_ITS | Encounter Summary ---
Author Organization [facility] Address [address] [place] [address] Care Team Providers Care Supervisor Commissary Production Name Role Phone Sam Madrigal MD Primary Care Provider Unavaila ble Encounter Details Date Type Department Care Team (Late st Contact Info) Description 07/07/2012 Correspondence [facility] [address] [place] [address] Sam Madrigal MD MEDICATIONS Social History Tobacco [...] Madrigal MD - 07/07/2012 12:00 AM CST OUND FILLER documented in this encounter Plan of Treatment Upcoming Encounters Date Type Department Care Team (Late st Contact Info) Description 02/18/2025 10:30 AM CDT Appointment Specialty Center [address] [place] [address]. [place] [address] Abby Maya MD [address] [place] [address] documented as of this encounter Visit Diagnoses Not on filedocumented in this encounter Care Teams Supervisor Commissary Production Relationship Specialty Start Date End Date Sam Madrigal MD PCP - General 11/17/07 documented as of this encounter
--- OUTSIDE RECORDS SUMMARY | 2024-04-06 12:42 | XMS_ITS | Encounter Summary ---
Author Organization [facility] Address [address] [place] [address] Care Team Providers Care Aadc Plans Staff Officer Name Role Phone Sam Madrigal MD Primary Care Provider Unavaila ble Encounter Details Date Type Department Care Team (Late st Contact Info) Description 04/07/2014 Correspondence None No Primary/Referring, Phy EQUIPMENT [employer] TICKET CPAP Social History Tobacco Use Types [...] [address] [facility] 401 [place] [address] Abby Maya MD 401 [place], [place] [phone] documented as of this encounter Visit Diagnoses Not on filedocumented in this encounter Care Teams Aadc Plans Staff Officer Relationship Specialty Start Date End Date Sam Madrigal MD PCP - General 11/17/07 documented as of this encounter
--- OUTSIDE RECORDS SUMMARY | 2024-04-06 12:42 | XMS_ITS | Encounter Summary ---
Author [facility] Address [address] [address] Care Team Providers Care Maintenance And Custodian Supervisor Name Role Phone Sam Madrigal MD [...] Appointment Specialty Center [address] [place] [address]. [place] [address] Abby Maya MD [address] [place] [address] documented as of this encounter Visit Diagnoses Not on filedocumented in this encounter Care Teams Maintenance And Custodian Supervisor Relationship Specialty Start Date End Date Sam Madrigal MD PCP - General 11/17/07 documented as of this encounter
--- OUTSIDE RECORDS SUMMARY | 2024-04-06 12:42 | XMS_ITS | Encounter Summary ---
Author Organization [facility] Address [address] [address] Care Team Providers Care Manager Vehicle Name Role Phone Sam Madrigal MD Primary [...] CDT Appointment Specialty Center [address] [place] [address]. [place] [address] Abby Maya MD [address] [place] [address] documented as of this encounter Visit Diagnoses Not on filedocumented in this encounter Care Teams Manager Vehicle Relationship Specialty Start Date End Date Sam Madrigal MD PCP - General 11/17/07 documented as of this encounter
--- OUTSIDE RECORDS SUMMARY | 2024-04-06 12:42 | XMS_ITS | Encounter Summary ---
Author Organization [facility] Address [address] [address] Care Team Providers Care Boilers And Pressure Vessels Inspector Name Role Phone Sam Madrigal MD Primary Care Provider Unavaila ble Encounter Details Date Type Department Care Team (Late Contact Info) Description 03/01/2013 Outside Hospital External to [facility] OP PROCEDURE KNEE ARTHROPLASTY Social [...] of this encounter Progress Notes * [facility] - 03/01/2013 12:00 AM CDT documented in this encounter Plan of Treatment Upcoming Encounters Date Type Department Care Team (Late Contact Info) Description 02/18/2025 10:30 AM CDT Appointment Specialty Center [address] [place] [address]. [place] [address] Abby Maya MD 401 [place] [address] documented as of this encounter Visit Diagnoses Not on filedocumented in this encounter Care Teams Boilers And Pressure Vessels Inspector Relationship Specialty Start Date End Date Sam Madrigal MD PCP - General 11/17/07 documented as of this encounter
--- OUTSIDE RECORDS SUMMARY | 2024-04-06 12:42 | XMS_ITS | Encounter Summary ---
Author [facility] Address [address], [place] [address] Care Team Providers Care Blade Bender Furnace Tender Name Role Phone Sam Madrigal MD Primary Care Provider Unavaila ble Encounter Details Date Type Department Care Team (Late Contact Info) Description 03/01/2013 Outside Hospital External to [facility] DISCHARGE SUMMARY Social History Tobacco [...] CDT Appointment Specialty Center [address] [place] [address]. [place] [address] Abby Maya MD [address] [place] [address] documented as of this encounter Visit Diagnoses Not on filedocumented in this encounter Care Teams Blade Bender Furnace Tender Relationship Specialty Start Date End Date Sam Madrigal MD PCP - General 11/17/07 documented as of this encounter
--- OUTSIDE RECORDS SUMMARY | 2024-04-06 12:42 | XMS_ITS | Encounter Summary ---
Author Organization [facility] Address [address] [place] [address] Care Team Providers Care Carpet Floor Layer Apprentice Name Role Phone Sam Madrigal MD Primary Care Provider Unavaila ble Encounter Details Date Type Department Care Team (Late Contact Info) Description 01/16/2012 Consent for Procedure/Treatme nt [facility] Department INFORMED CONSENT FOR SLEEP/AUDIO/VIDEO Social History [...] CDT Appointment Specialty Center [address] [place] [address]. [place] [address] Abby Maya MD [address] [place] [address] documented as of this encounter Visit Diagnoses Not on filedocumented in this encounter Care Teams Carpet Floor Layer Apprentice Relationship Specialty Start Date End Date Sam Madrigal MD PCP - General 11/17/07 documented as of this encounter
--- OUTSIDE RECORDS SUMMARY | 2024-04-06 12:42 | XMS_ITS | Encounter Summary ---
Author Organization [facility] Address [address] [address] Care Team Providers Care Clinical Research Director Name Role Phone Sam Madrigal MD Primary Care Provider Unavaila ble Encounter Details Date Type Department Care Team (Late Contact Info) Description 01/17/2012 Correspondence None Inactive, [...] Appointment Specialty Center [address] [place] [address]. [place] [address] Abby Maya MD [address] [place] [address] documented as of this encounter Visit Diagnoses Not on filedocumented in this encounter Care Teams Clinical Research Director Relationship Specialty Start Date End Date Sam Madrigal MD PCP - General 11/17/07 documented as of this encounter
--- OUTSIDE RECORDS SUMMARY | 2024-04-06 12:42 | XMS_ITS | Encounter Summary ---
Author Organization [facility] Address [address] [address] Care Team Providers Care Manager Multicultural Name Role Phone Sam Madrigal MD Primary Care Provider Williea jarrell Encounter Details Date Type Department Care Team (Late st Contact Info) Description 03/17/2012 Outside Hospital External to [facility], Provider DISCHARGE SUMMARY Social History Tobacco [...] Appointment Specialty Center [address] [place] [address]. [place] [address] Abby Maya MD [address] [place] [address] documented as of this encounter Visit Diagnoses Not on filedocumented in this encounter Care Teams Manager Multicultural Relationship Specialty Start Date End Date Sam Madrigal MD PCP - General 11/17/07 documented as of this encounter
--- NOTE | 2024-04-06 13:18 | CRLHL7_ITS ---
For Patients: As a result of the Century Cures Act, medical imaging exams and procedure reports are released immediately into your electronic medical record. You may view this report before your referring provider. If you have questions, please contact your health care provider. INDICATION: Exertional dyspnea. Elevated D-dimer. TECHNIQUE: CT chest pulmonary angiogram acquired with 95 cc of Isovue 370 IV contrast. COMPARISON: None. FINDINGS: No evidence of pulmonary embolus. The main pulmonary artery is normal in caliber. Aortic atherosclerosis. The nonopacified thoracic aorta is otherwise unremarkable. Coronary artery calcifications. Heart size is within normal limits. No pleural or pericardial effusions. No pathologic lymphadenopathy. Soft tissues of the thoracic wall are unremarkable. No pneumothorax. Central airways are patent. Mild basilar ground-glass opacities, left greater than right. The lungs are otherwise clear. Visualized upper abdomen is unremarkable. Degenerative changes of the spine. No acute or suspicious osseous abnormality. IMPRESSION: 1. No evidence of pulmonary embolus. 2. Mild basilar ground-glass opacities likely represent incidental subsegmental atelectasis. However, infectious or inflammatory etiologies could be considered in the appropriate clinical setting. Dictated by Kade Flores MD @ 04/06/2024 2:30:02 PM Please note that all CT scans at this facility use dose modulation, iterative reconstruction, and/or weight-based dosing when appropriate to reduce radiation dose to as low as reasonably achievable. Dictated by: Kade Flores MD @ 04/06/2024 14:30:19 (Electronically Signed)
[2024-04-06 13:22] LABS: NT Pro B Type NatriureticPept* 500 pg/mL; Troponin I* < 0.01 ng/mL (0.01-0.04)
[2024-04-06] MEDS: 0.9 % SODIUM CHLORIDE 500 ML 500 ML IV (14:12)
[2024-04-06 14:39] LABS: PCR FLU A Negative PCR FLU A (Negative); PCR FLU B Negative PCR FLU B (Negative); SARS PCR* Negative SARS-CoV-2 (Negative)
--- NOTE | 2024-04-06 15:31 | CRLHL7_ITS ---
For Patients: As a result of the Cures Act, medical imaging exams and procedure reports are released immediately into your electronic medical record. You may view this report before your referring provider. If you have questions, please contact your health care provider. Indication: LEFT UPPER OUTER LOWER LEG SWELLING. Technique: Left tibia and fibula 2 views. Comparison: None. 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 Chronic proximal fibular diaphysis fracture deformity. No evidence of an acute or dislocation Soft tissues: Superficial soft tissue swelling about the leg, most pronounced along the superolateral component. Impression: No evidence of an acute fracture. Superficial soft tissue swelling about the leg is nonspecific, but could reflect cellulitis. Dictated by Daron Prieto MD @ 04/06/2024 4:28:33 PM (Electronically Signed)
== END 2024-04-06 16:36 | disposition home or self-care (01) ==
PROVIDERS: Emergency Provider Family Medicine; PCP Family Medicine
DX: R60.9 Edema, unspecified (principal); M54.50 Low back pain, unspecified; I10 Essential (primary) hypertension; R06.00 Dyspnea, unspecified
CPT/HCPCS: 36415; 71275; 73590; 80048; 80076; 81001; 83735; 83880; 84484; 85025; 85379; 87631; 93005; 93970; 94761; 99284; 99285; J7030; Q9967

== ENCOUNTER 2024-05-14 08:11 | Outpatient (CLI) | payer MEDICARE, SELFPAY ==
--- OUTSIDE RECORDS SUMMARY | 2024-05-17 04:22 | XMS_ITS | Referral Summary ---
Author Organization [facility] Address [address] [place] [address] Care Team Providers Care Family Resource Specialist Name Role Phone Sam Madrigal MD [...] of Treatment Not on file Care Teams Family Resource Specialist Relationship Specialty Start Date End Date Sam Madrigal MD PCP - General 04/06/19
--- OUTSIDE RECORDS SUMMARY | 2024-05-17 04:22 | XMS_ITS | Clinical Summary ---
Author Organization [facility] Address [address] [place] [address] Care Team Providers Care Digital Media Manager Name Role Phone Sam Madrigal MD [...] 1948 Zoster Vaccine (1 of 2) 1997 Pneumococcal 65+ (1 of 1 - PCV) 2012 Yearly Review of HCD 04/05/2020 04/06/2019 Adult Tetanus Booster 12/14/2020 12/14/2010 RSV Vaccines (1 - 1-dose 75+ series) 2022 COVID-19 Vaccine ( - 2023- season) 2024 Influenza Vaccine (#1) 2024 05/23/2011, 2009 Care Teams Digital Media Manager Relationship Specialty Start Date End Date Sam Madrigal MD PCP - General 04/06/19
--- OUTSIDE RECORDS SUMMARY | 2024-05-17 04:22 | XMS_ITS | Clinical Summary ---
Author Organization [facility] Address [place], [place] [address] Care Team Providers Care Traveling Construction Superintendent Name Role Phone Sam Madrigal Bennie Primary [...] day) for age 18+ 04/26/2017 0 04/26/2016 RSV vaccine for adults or pr egnancy (1 - 1-dose 75+ series) 2022 COVID-19 vaccine series (3 - 2023- season) 2024 11/25/2020, 11/04/2020 Influenza for age 65+ 03/29/2024 Care Teams Traveling Construction Superintendent Relationship Specialty Start Date End Date Sam Madrigal PCP - General Family Practice 04/26/16
--- OUTSIDE RECORDS SUMMARY | 2024-05-17 04:23 | XMS_ITS | Encounter Summary ---
Author Organization [facility] Address [address], [place] [address] Care Team Providers Care Capsule Maker Name Role Phone Kedar Lopez MD Primary Care Provider + [phone] Encounter Details Date Type Department Care Team (Latest Contact Info) Description 01/26/2013 Flowsheet External to External, [place] [address] BP Social History Tobacco Use Types Packs/Day [...] Department Care Team ( Contact Info) Description 07/15/2024 2:00 PM DESIGN INSERTER Appointment [facility] Gastroenterology [address] [place], [place] [phone] Emerson Clifford MD [address] [place], [place] [phone] 02/18/2025 10:30 AM CDT [facility]ointment [facility] 401 [facility] [place] [address] Abby Maya MD [address] [place] [address] documented as of this encounter Visit Diagnoses Not on filedocumented in this encounter Care Teams Capsule Maker Relationship Specialty Start Date End Date Kedar Lopez MD [address] [place] [address] PCP - General 04/16/24 documented as of this encounter
--- OUTSIDE RECORDS SUMMARY | 2024-05-17 04:23 | XMS_ITS | Encounter Summary ---
Author Organization [facility] Address [address], [place] [address] Care Team Providers Care Air Cargo Agent Name Role Phone Kedar Lopez MD Primary Care Provider + [phone] Encounter Details Date Type Department Care Team (Late Contact Info) Description 03/01/2013 Outside Hospital External to [facility] OP PROCEDURE KNEE ARTHROPLASTY Social History Tobacco [...] as of this encounter Progress Notes * Ruben Morgan - 03/01/2013 12:00 AM CDT documented in this encounter Plan of Treatment Upcoming Encounters Date Type Department Care Team (Late Contact Info) Description 07/15/2024 2:00 PM PUTAWAY DRIVER Appointment [facility] Gastroenterology [address] [place] [address] Emerson Clifford MD [address] [place] [address] 02/18/2025 10:30 AM CDT [facility]ointment [facility] [address] [place] [address]. [place] [address] Abby Maya MD [address] [place] [address] documented as of this encounter Visit Diagnoses Not on filedocumented in this encounter Care Teams Air Cargo Agent Relationship Specialty Start Date End Date Kedar Lopez MD [address] [place] [address] PCP - General 04/16/24 documented as of this encounter
--- OUTSIDE RECORDS SUMMARY | 2024-05-17 04:23 | XMS_ITS | Encounter Summary ---
Author Organization [facility] Address [address], [place] [address] Care Team Providers Care Reservation Sales Agent Name Role Phone Sam Madrigal MD Primary Care Provider Unavaila ble Reason for Visit * Reason Comments Skin Check No specific concerns . Encounter Details Date Type Department Care Team (Late st Contact Info) Description 02/19/2024 10:30 AM CDT Office Visit [facility] [address] [place] [address]. [place] [address] Abby Maya MD [address] [place] [address] Bullous pemphigoid (Primary Dx); Screening for malignant [...] 1 year(s) FBE Appt. Length: 15 minutes Insurance Adjustor: No Clinic Location: Specialty Center Your Next [...] (regular and baby) Blue Lizard sensitive SPF30 (www.LaComunity.sendwithus) Blue Lizard baby SPF30+ (www.LaComunity.sendwithus) Neutrogena Sensitive Skin SPF 30, Neutrogena Sensitive Skin SPF 60+ Vanicream sensitive skin SPF30 and SPF60 (www.vanicream.sendwithus) Walgreen???s Sensitive Skin SPF 70 Neutrogena pure and free facial lotion SPF50 Many local pharmacies and [employer] stores carry some of these options, or you may purchase them online at wwwhotelsmap.com<http://Induction Manager/>, wwwDavidson Green Center<http://Schoooools.com.Zylie the Bear/>, etc. Tinted sunscreens (more expensive but don't look white and are smooth to apply): Skinceuticals Physical Fusion SPF 50 - about $30 and available at [employer] in stores La Bruce Posay Antihelios mineral sunscreen SPF 50 Jasmin THOMAS Physical Broad Spectrum SPF 41 - this is my favorite and available on Page2Images, Endoclear, and Traversa Therapeutics (not found in stores and about $30) [...] re-evaluation -- Rit Sunguard: also available from Versaworks and will provide SPF 30 protection to clothes for up to 30 washes -- Coolibar sun protective clothing: available online through the company website or SmartKickz to find coupons available, since they are [...] is rare,but the skin may become somewhat general farm manager or darker in the treated area. Your [...] visit? NA. Annual visit What prescribed or qhnt-hol-bzdltkp medications, supplements, ointments or creams have you [...] atypical nevi. Social History: pon[place] jones in [place], former smoker. No smokeless tobacco. 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 Medications: has a current medication list which [...] Care Team (Late st Contact Info) Description 07/15/2024 2:00 PM TURNING MACHINE OPERATOR Appointment [facility] Gastroenterology [address] [place] [address] Emerson Clifford MD [address] [place], [place] [phone] 02/18/2025 10:30 AM CDT Appointment [facility] [place] 401 [facility] Clinic 401 [facility] [place] [address] Abby Maya MD [address] [place], [place] [phone] documented as of this encounter Procedures Procedure [...] unspecified documented in this encounter Care Teams Reservation Sales Agent Relationship Specialty Start Date End Date Sam Madrigal MD PCP - General 11/17/07 04/15/24 documented as of this encounter
--- OUTSIDE RECORDS SUMMARY | 2024-05-17 04:23 | XMS_ITS | Encounter Summary ---
Author Organization [facility] Address [address] [place] [address] Care Team Providers Care Motion Picture Printer Name Role Phone Kedar Lopez MD Primary Care Provider Encounter Details Date Type Department Care Team (Late Contact Info) Description 07/07/2012 Correspondence [facility] [address] [place], [place] [phone] Sam Madrigal MD MEDICATIONS Social History Tobacco [...] Madrigal MD - 07/07/2012 12:00 AM CST IANCE SALES ASSOCIATE documented in this encounter Plan of Treatment Upcoming Encounters Date Type Department Care Team (Late Contact Info) Description 07/15/2024 2:00 PM APPLIANCE SALES ASSOCIATE Appointment [facility] Gastroenterology [address] [place] [address] Emerson Clifford MD [address] [place] [address] 02/18/2025 10:30 AM CDT [facility]ointment [facility] 401 [place] [address] Abby Maya MD [address] [place], [place] [phone] documented as of this encounter Visit Diagnoses Not on filedocumented in this encounter Care Teams Motion Picture Printer Relationship Specialty Start Date End Date Kedar Lopez MD [address] [place] [address] PCP - General 04/16/24 documented as of this encounter
--- OUTSIDE RECORDS SUMMARY | 2024-05-17 04:23 | XMS_ITS | Encounter Summary ---
Author Organization [facility] Address [address] [address] Care Team Providers Care Webfed Offset Press Operator Name Role Phone Kedar Lopez MD Primary Care Provider Encounter Details Date Type Department Care Team ([facility] Contact Info) Description 04/07/2014 Correspondence None No Primary/Referring, Phy EQUIPMENT GMAT INSTRUCTOR TICKET CPAP Social History Tobacco Use Types [...] Upcoming Encounters Date Type Department Care Team ([facility] Contact Info) Description 07/15/2024 2:00 PM PAVING AND SURFACING LABOURER Appointment [facility] Gastroenterology [address] [place] [address] Emerson Clifford MD [address] [place] [address] 02/18/2025 10:30 AM CDT Appointment [facility] 401 D[facility] 401 [facility] [place] [address] Abby Maya MD [address] [place] [address] documented as of this encounter Visit Diagnoses Not on filedocumented in this encounter Care Teams Webfed Offset Press Operator Relationship Specialty Start Date End Date Kedar Lopez MD [address] [place] [address] PCP - General 04/16/24 documented as of this encounter
--- OUTSIDE RECORDS SUMMARY | 2024-05-17 04:23 | XMS_ITS | Clinical Summary ---
[facility] Address [address], [place] [address] Care Team Providers Care Invoice Control Clerk Name Role Phone Kedar Lopez MD Primary Care Provider + [phone] Source Comments You are receiving this document as you are listed as the primary care provider,follow-up provider, or the patient has been referred to you for consultation.This is in compliance with the Medicare andTrihealthcaid EHR Incentive Program,which states Providers who transition their patient to another setting of careor provider of care or refers their patient to another provider of care shouldprovide summary care record for each transition of care or referral. [employer] Allergies No known active allergies Medications Medication [...] Encounters Date Type Department Care Team Description 04/16/2024 Notes/Orders [facility] [address] [facility] [place] [address] Hope Dallas MD Special screening for malignant neoplasms, colon 02/24/2024 10:30 AM CDT Home Medical Services [facility] [address] [facility] [place] [address] Colleen Alva LPN 02/19/2024 10:30 AM CDT Office Visit [facility] 401 D[facility]ology Clinic [address] [facility] [place] [address] Abby Maya MD Bullous pemphigoid (Primary Dx); Screening for malignant neoplasm; Multiple benign nevi; Inflamed seborrheic keratosis; Seborrheic dermatitis from Last 3 Months Immunizations Name Administration Dates Next Due Flu Vac (3+ yrs) 05/23/2011,05/25/2010 [id number] 08/11/2009,06/27/2009 Influenza IIV3 (Trivalent) F luzone Highdose, 65+ Yrs (01494) 05/05/2020,04/27/2019 Influenza IIV4 (Quadrivalent ) Fluzone, 65+ [...] Mother (Age 45) CVA Brother 1 Alive 194 Brother 2 Alive 1954 Brother 3 Other Sister 1 Alive 3 Sister 2 Sister 3 Son 1 Alive David, 1971 Son 2 Alive Andrew, 1973 Social History Tobacco Use Types Packs/Day Years [...] T Respiratory Rate 17 07/07/2019 12:05 PM SALES REPRESENTATIVE RAW FIBERS Oxygen Saturation 95% 07/07/2019 12:05 PM SALES REPRESENTATIVE RAW FIBERS Inhaled Oxygen Concentration - - Weight 95.7 kg (211 lb) 03/06/2021 9:21 AM CDT Height 175.3 cm (5' 9) 01/04/2021 4:44 PM CDT Body Mass Index 31.16 01/04/2021 4:44 PM CDT Plan of Treatment Upcoming Encounters Date Type Department Care Team (Late st Contact Info) Description 07/15/2024 2:00 PM SALES REPRESENTATIVE RAW FIBERS Appointment [facility] Gastroenterology [address] [place] [phone] Emerson Clifford MD [address] [place] [address] 02/18/2025 10:30 AM CDT [facility]ointment [facility] [address] [facility] [place] [address] Abby Maya MD [address] [place] [address] Health Maintenance Due Date Last Done Comments Medicare Annual Wellness Visit 01/05/2022 01/05/2021, 03/25/2019, 03/17/2018, Additional history exists Prediabetes: HGBA1C 03/06/2022 03/06/2021 RSV (1 - 1-dose 75+ series) 2022 COVID-19 Vaccine ( season) 2024 05/27/2023, 07/03/2022, 01/16/2022, Additional history exists Influenza (#1) 2024 05/27/2023, 1110/2021, 05/16/2021, Additional history exists Colonoscopy 07/07/2024 07/07/2019, [...] on patient's age to complete this topic RSV Aged Out No longer eligi ble based [...] Mixed hyperlipidemia COLONOSCOPY Routine 07/07/2019 11:16 AM SALES REPRESENTATIVE RAW FIBERS Screen for colon cancer HEPATITIS C ANTIBODY, [...] 5.5 <=5.6 % 03/06/2021 5:09 PM CDT [facility] Blood Venipuncture / Unknown 03/06/2021 10:24 AM CDT 03/06/2021 10:24 AM CDT Sam Madrigal MD LAB_1 [facility] [address] [phone] * Lipid Panel and Direct LDL(If Needed) (03/02/2021 7:56 AM CDT) Cholesterol 150 0 - 199 mg/dL 03/02/2021 11:43 AM CDT [facility] Triglyceride 82 <=149 mg/dL 03/02/2021 11:43 AM CDT [facility] HDL Cholesterol 51 >=40 mg/dL 03/02/2021 11:43 AM CDT [facility] LDL, Calculated 83 <130 mg/dL 03/02/2021 11:43 AM CDT [facility] Non HDL Chol, Calculated 99 <=159 mg/dL 03/02/2021 11:43 AM CDT [facility] Cholesterol/HDL Ratio 2.9 03/02/2021 11:43 AM CDT [facility] Hours Fasting 12 03/02/2021 11:43 AM CDT [facility] Blood Venipuncture / Unknown 03/02/2021 7:56 AM CDT 03/02/2021 7:56 AM CDT Sam Madrigal MD LAB_1 Performing Organization Address City/State/[facility] Co de Phone Number [facility] [address] [address], [facility] [phone] [facility] [address] [place] [address], [facility] [phone] * COLONOSCOPY [[id number]] (07/07/2019 11:16 AM SALES REPRESENTATIVE RAW FIBERS) 07/07/2019 11:1 6 AM SALES REPRESENTATIVE RAW FIBERS Narrative GI ([facility]) - 07/07/2019 11:45 AM SALES REPRESENTATIVE RAW FIBERS Instrument Name: 183 Indications: ? Screening for [...] Procedure Code(s): ?? --- Professional --- ? 48765, PT, Colonoscopy, flexible; with removal of ? [...] older (additional time may be reported with [address], as ? appropriate) Diagnosis Code(s): ?? --- Professional --- ? Z12.11, Encounter for screening for malignant ? neoplasm of colon ? K64.8, Other hemorrhoids ? D12.0, Benign neoplasm of cecum ? K57.30, Diverticulosis of large intestine without ? perforation or abscess without bleeding CPT copyright 2018 [employer]. All rights reserved. The codes documented in this report are preliminary and upon ehs engineer review may be revised to meet current [...] pathology results. Procedure Code(s): --- Professional --- 43968, PT, Colonoscopy, flexible; with removal of tumor(s), polyp(s), or other lesion(s) by snare technique G0500, PT, Moderate sedation services provided by the same physician or other qualified health long term acute care registered nurse performing a gastrointestinal endoscopic service that sedation supports, requiring the presence of an independent trained observer to assist in the monitoring of the patient's level of consciousness and physiological status; initial 15 minutes of intra-service time; patient age 5 years or older (additional time may be reported with [address]62, as appropriate) Diagnosis Code(s): --- Professional --- Z12.11, Encounter for screening for malignant neoplasm of colon K64.8, Other hemorrhoids D12.0, Benign neoplasm of cecum K57.30, Diverticulosis of large intestine without perforation or abscess without bleeding CPT copyright 2018 [employer]. All rights reserved. The codes documented in this report are preliminary and upon ehs engineer review may be revised to meet current compliance requirements. Attending Participation: Emerson Clifford MD 07/07/2019 11:45:26 AM This report has been signed electronically. Number of Addenda: 0 Note Initiated On: 07/07/2019 11:16 AM Emerson Clifford MD DIGESTIVE CARE Performing Organization Address City/[facility]/ZIP Co de Phone Number GI ([facility]) [place], [place] * Hepatitis C Antibody, with Reflex (03/17/2018 9:22 AM CDT) Anti-HCV Negative (Non Reactive) [facility] Comment: Antibodies to HCV not detected. Does not exclude the possibility of exposure to HCV. 03/17/2018 9:22 AM CDT 03/17/2018 9:23 AM CDT Narrative [facility] - 03/17/2018 3:53 PM CDT Performed at [facility], [address] [place] [id number] Sam Madrigal MD LAB_1 [facility] [phone] from Last 3 Months or Most Recently Relevant to Health Maintenance Care Teams Invoice Control Clerk Relationship Specialty Start Date End Date Kedar Lopez MD [address] [place], [place] [phone] PCP - General 04/16/24
--- OUTSIDE RECORDS SUMMARY | 2024-05-17 04:23 | XMS_ITS | Encounter Summary ---
Author Organization [facility] Address [address], [place] [address] Care Team Providers Care Front Desk Lead Name Role Phone Kedar Lopez MD Primary Care Provider + [phone] Encounter Details Date Type Department Care Team [...] Contact Info) Description 07/15/2024 2:00 PM SALES AND MARKETING MANAGER Appointment [facility] Gastroenterology [address] [place] [address] Emerson Clifford MD [address] [place] [address] 02/18/2025 10:30 AM CDT Appointment [facility] 401 D[facility] Clinic 401 [facility] [place] [address] Abby Maya MD [address] [place] [address] documented as of this encounter Visit Diagnoses Not on filedocumented in this encounter Care Teams Front Desk Lead Relationship Specialty Start Date End Date Kedar Lopez MD [address] [place] [address] PCP - General 04/16/24 documented as of this encounter
--- OUTSIDE RECORDS SUMMARY | 2024-05-17 04:23 | XMS_ITS | Encounter Summary ---
Author Organization [facility] Address [address], [place] [address] Care Team Providers Care Meterman Name Role Phone Kedar Lopez MD Primary Care Provider Encounter Details Date Type Department Care Team (Late Contact Info) Description 03/31/2015 Correspondence None No Primary/Referring, Phy HME EQUIPMENT GOOD HUMOR VENDOR TICKET Social History Tobacco Use Types Packs/Day [...] Upcoming Encounters Date Type Department Care Team ([facility] Contact Info) Description 07/15/2024 2:00 PM DOCUMENT MANAGEMENT TECHNICIAN Appointment [facility] Gastroenterology [address] [place] [address] Emerson Clifford MD [address] [place] [address] 02/18/2025 10:30 AM CDT Appointment [facility] 401 D[facility]ology Clinic 401 [place] [address] Abby Maya MD [address] [place] [address] documented as of this encounter Visit Diagnoses Not on filedocumented in this encounter Care Teams Meterman Relationship Specialty Start Date End Date Kedar Lopez MD [address] [place] [address] PCP - General 04/16/24 documented as of this encounter
--- OUTSIDE RECORDS SUMMARY | 2024-05-17 04:23 | XMS_ITS | Encounter Summary ---
Author Organization [facility] Address [address] [address] Care Team Providers Care Instructor Private Name Role Phone Kedar Lopez MD Primary [...] Upcoming Encounters Date Type Department Care Team ([facility] Contact Info) Description 07/15/2024 2:00 PM OPTOELECTRONICS ENGINEER Appointment [facility] Gastroenterology [address] [place] [address] Emerson Clifford MD [address] [place] [address] 02/18/2025 10:30 AM CDT Appointment [facility] [place] 401 Dermatology Clinic [address] [place] [address] Abby Maya MD [address] [place] [address] documented as of this encounter Visit Diagnoses Not on filedocumented in this encounter Care Teams Instructor Private Relationship Specialty Start Date End Date Kedar Lopez MD [address] [place] [address] PCP - General 04/16/24 documented as of this encounter
--- OUTSIDE RECORDS SUMMARY | 2024-05-17 04:23 | XMS_ITS | Encounter Summary ---
[facility] IO Address [address] [place] [address] Care Team Providers Care Panel Builder Name Role Phone Kedar Lopez MD Primary Care Provider [phone] Reason for Referral * Procedure/Equipment (Routine) - New Request Specialty Diagnoses / Procedures Referred By Contmarixa t Referred To Contact Diagnoses Special screening for malignant neoplasms, colon Procedures Colonoscopy Screening - Mod Sedation Hope Dallas MD [address] [place] [address] Referral ID Status Reason Start Date Expiration Date V isits Requested Visits Authorized [id number] New Request 04/16/2024 04/16/2026 1 1 Encounter Details Date Type Department Care Team (Late st Contact Info) Description 04/16/2024 Notes/Orders [facility] [address] [place] [phone] Hope Dallas MD [address] [place] [phone] Special screening for malignant neoplasms, colon Social History Tobacco Use Types Packs/Day Years [...] st Contact Info) Description 07/15/2024 2:00 PM SENIOR WINDOWS SYSTEMS ENGINEER Appointment [facility] Gastroenterology 435 [place], [place] [phone] Emerson Clifford MD [address] [place], [place] [phone] 02/18/2025 10:30 AM CDT Appointment [facility]ty [facility] 401 [place] [address] Abby Maya MD [address] [place], [place] [phone] Scheduled Orders Name Type Priority Associated Diagnoses Orde r Schedule Colonoscopy Screening - Mod Sedation GI Routine Special screening for malignant neoplasms, colon 1 Occurrences starting 04/16/2024 until 04/16/2026 documented as of this encounter Visit Diagnoses Diagnosis Special screening for malignant neoplasms, colon documented in this encounter Care Teams Panel Builder Relationship Specialty Start Date End Date Kedar Lopez MD [address] [place] [address] PCP - General 04/16/24 documented as of this encounter
--- OUTSIDE RECORDS SUMMARY | 2024-05-17 04:23 | XMS_ITS | Encounter Summary ---
Author Organization [facility] Address [address] [address] Care Team Providers Care Oracle Engineer Name Role Phone Kedar Lopez MD Primary Care Provider + [phone] Encounter Details Date Type Department Care Team [...] (Late Contact Info) Description 07/15/2024 2:00 PM DEAN OF GRADUATE STUDIES Appointment [facility] Gastroenterology 435 [place] [address] Emerson Clifford MD [address] [place] [address] 02/18/2025 10:30 AM CDT Appointment [facility] 401 [facility] [place] [address] Abby Maya MD [address] [place] [address] documented as of this encounter Visit Diagnoses Not on filedocumented in this encounter Care Teams Oracle Engineer Relationship Specialty Start Date End Date Kedar Lopez MD [address] [place] [address] PCP - General 04/16/24 documented as of this encounter
--- OUTSIDE RECORDS SUMMARY | 2024-05-17 04:23 | XMS_ITS | Encounter Summary ---
Author Organization Pending sale to [facility] Address [address], [place] [address] Care Team Providers Care Test Engine Operator Name Role Phone Kedar Lopez MD Primary Care Provider + [phone] Encounter Details Date Type Department Care Team [...] (Late Contact Info) Description 07/15/2024 2:00 PM ROLLER MAKER Appointment [facility] Gastroenterology 435 [place] [address] Emerson Clifford MD [address] [place] [address] 02/18/2025 10:30 AM CDT Appointment [facility] 401 [facility] [place] [address] Abby Maya MD [address] [place] [address] documented as of this encounter Visit Diagnoses Not on filedocumented in this encounter Care Teams Test Engine Operator Relationship Specialty Start Date End Date Kedar Lopez MD [address] [place] [address] PCP - General 04/16/24 documented as of this encounter
--- OUTSIDE RECORDS SUMMARY | 2024-05-17 04:23 | XMS_ITS | Encounter Summary ---
Author Organization [facility] Address [address] [address] Care Team Providers Care Fringing Machine Operator Name Role Phone Kedar Lopez MD Primary Care Provider + [phone] Encounter Details Date Type Department Care Team (Late Contact Info) Description 03/17/2012 Outside Hospital External to [facility] Provider DISCHARGE SUMMARY Social History Tobacco Use [...] (Late Contact Info) Description 07/15/2024 2:00 PM MANUFACTURING LEADER Appointment [facility] Gastroenterology [address] [place], [place] [phone] Emerson Clifford MD [address] [place] [address] 02/18/2025 10:30 AM CDT Appointment [facility] 401 [facility] [place] [address] Abby Maya MD [address] [place] [address] documented as of this encounter Visit Diagnoses Not on filedocumented in this encounter Care Teams Fringing Machine Operator Relationship Specialty Start Date End Date Kedar Lopez MD [address] [place] [address] PCP - General 04/16/24 documented as of this encounter
--- OUTSIDE RECORDS SUMMARY | 2024-05-17 04:23 | XMS_ITS | Encounter Summary ---
Author Organization [facility] Address [address], [place] [address] Care Team Providers Care Resort Keeper Name Role Phone Kedar Lopez MD Primary Care Provider + [phone] Encounter Details Date Type Department Care Team (Late Contact Info) Description 01/16/2012 Consent for Procedure/Treatme nt [facility] Department INFORMED CONSENT FOR SLEEP/AUDIO/VIDEO Social [...] (Late Contact Info) Description 07/15/2024 2:00 PM EMAIL CAMPAIGN SPECIALIST Appointment [facility] Gastroenterology 435 [place] [address] Emerson Clifford MD [address] [place] [address] 02/18/2025 10:30 AM CDT Appointment [facility] [address] [place] [address]. [place] [address] Abby Maya MD [address] [place] [address] documented as of this encounter Visit Diagnoses Not on filedocumented in this encounter Care Teams Resort Keeper Relationship Specialty Start Date End Date Kedar Lopez MD [address] [place] [address] PCP - General 04/16/24 documented as of this encounter
--- OUTSIDE RECORDS SUMMARY | 2024-05-17 04:23 | XMS_ITS | Encounter Summary ---
Author Organization [facility] Address [address] [address] Care Team Providers Care Pulmonology Physician Name Role Phone Kedar Lopez MD Primary Care Provider + [phone] Encounter Details Date Type Department Care Team (Late Contact Info) Description 03/07/2012 Correspondence None Inactive, [...] (Late Contact Info) Description 07/15/2024 2:00 PM DENTIST/OWNER Appointment [facility] Gastroenterology 435 [place], [place] [phone] Emerson Clifford MD [address] [place] [address] 02/18/2025 10:30 AM CDT Appointment [facility] 401 [place] [address] Abby Maya MD [address] [place] [address] documented as of this encounter Visit Diagnoses Not on filedocumented in this encounter Care Teams Pulmonology Physician Relationship Specialty Start Date End Date Kedar Lopez MD [address] [place] [address] PCP - General 04/16/24 documented as of this encounter
--- OUTSIDE RECORDS SUMMARY | 2024-05-17 04:23 | XMS_ITS | Encounter Summary ---
Author Organization Counts include 234 beds at the [facility] Address [address], [place] [address] Care Team Providers Care Leaf Stripper Name Role Phone Kedar Lopez MD Primary Care Provider Encounter Details Date Type Department Care Team ([facility] Contact Info) Description 06/25/2017 Correspondence None No Primary/Referring, Phy HME EQUIPMENT DRIVER GUARD TICKET CPAP Social History Tobacco Use Types [...] Upcoming Encounters Date Type Department Care Team ([facility] Contact Info) Description 07/15/2024 2:00 PM PIPELINES LABORER Appointment [facility] Gastroenterology 435 [place] [address] Emerson Clifford MD [address] [place] [address] 02/18/2025 10:30 AM CDT Appointment Specialty Center 401 [facility] 401 [facility] [place] [address] Abby Maya MD [address] [place] [address] documented as of this encounter Visit Diagnoses Not on filedocumented in this encounter Care Teams Leaf Stripper Relationship Specialty Start Date End Date Kedar Lopez MD [address] [place] [address] PCP - General 04/16/24 documented as of this encounter
--- OUTSIDE RECORDS SUMMARY | 2024-05-17 04:23 | XMS_ITS | Encounter Summary ---
Author Organization [facility] Address [address] [address] Care Team Providers Care Laboratory Administrative Director Name Role Phone Kedar Lopez MD Primary Care Provider + [phone] Encounter Details Date Type Department Care Team (Late st Contact Info) Description 07/07/2019 Consent for Procedure/Treatme nt [facility] Department INFORMED CONSENT RECORD Social History Tobacco [...] (Late Contact Info) Description 07/15/2024 2:00 PM QA SOFTWARE TEST ENGINEER Appointment [facility] Gastroenterology 435 [place], [place] [phone] Emerson Clifford MD [address] [place] [address] 02/18/2025 10:30 AM CDT Appointment Specialty Center 401 [facility] 401 [facility] [place] [address] Abby Maya MD [address] [place], [place] [phone] documented as of this encounter Visit Diagnoses Not on filedocumented in this encounter Care Teams Laboratory Administrative Director Relationship Specialty Start Date End Date Kedar Lopez MD [address] [place] [address] PCP - General 04/16/24 documented as of this encounter
--- OUTSIDE RECORDS SUMMARY | 2024-05-17 04:23 | XMS_ITS | Encounter Summary ---
Author Organization [facility] Address [address] [address] Care Team Providers Care Hospital Admissions Clerk Name Role Phone Kedar Lopez MD Primary Care Provider Encounter Details Date Type Department Care Team ([facility] Contact Info) Description 06/21/2014 Correspondence None No Primary/Referring, Phy EQUIPMENT SERGEANT OF OFFICERS TICKET Social History Tobacco Use Types Packs/Day [...] Upcoming Encounters Date Type Department Care Team ([facility] Contact Info) Description 07/15/2024 2:00 PM NETWORKER Appointment [facility] Gastroenterology [address] [place] [address] Emerson Clifford MD [address] [place] [address] 02/18/2025 10:30 AM CDT Appointment Specialty Center 401 [facility] 401 [facility] [place] [address] Abby Maya MD [address] [place] [address] documented as of this encounter Visit Diagnoses Not on filedocumented in this encounter Care Teams Hospital Admissions Clerk Relationship Specialty Start Date End Date Kedar Lopez MD [address] [place] [address] PCP - General 04/16/24 documented as of this encounter
--- OUTSIDE RECORDS SUMMARY | 2024-05-17 04:23 | XMS_ITS | Encounter Summary ---
Author Organization [facility] Address [address] [address] Care Team Providers Care Project Internship Name Role Phone Kedar Lopez MD Primary Care Provider + [phone] Encounter Details Date Type Department Care Team (Latest Contact Info) Description 03/29/2015 Flowsheet External to External, [place] [address] HOME BP CHECKS Social History Tobacco Use [...] st Contact Info) Description 07/15/2024 2:00 PM LEADERSHIP PROGRAM INTERNSHIP Appointment [facility] Gastroenterology [address] [place] [address] Emerson Clifford MD [address] [place] [address] 02/18/2025 10:30 AM CDT Appointment Specialty Center 401 D[facility] Clinic 401 [facility] [place] [address] Abby Maya MD [address] [place] [address] documented as of this encounter Visit Diagnoses Not on filedocumented in this encounter Care Teams Project Internship Relationship Specialty Start Date End Date Kedar Lopez MD [address] [place] [address] PCP - General 04/16/24 documented as of this encounter
--- OUTSIDE RECORDS SUMMARY | 2024-05-17 04:23 | XMS_ITS | Encounter Summary ---
Author Organization [facility] Address [address] [address] Care Team Providers Care Mailroom Supervisor Name Role Phone Kedar Lopez MD Primary Care Provider + [phone] Encounter Details Date Type Department Care Team (Latest Contact Info) Description 05/27/2019 Flowsheet External to External, [place] [address] BP Social History Tobacco Use Types Packs/Day [...] st Contact Info) Description 07/15/2024 2:00 PM LEGGER PRESS OPERATOR Appointment [facility] Gastroenterology [address] [place] [address] Emerson Clifford MD [address] [place] [address] 02/18/2025 10:30 AM CDT Appointment Specialty Center 401 [facility] 401 [facility] [address] Abby Maya MD [address] [place], [place] [phone] documented as of this encounter Visit Diagnoses Not on filedocumented in this encounter Care Teams Mailroom Supervisor Relationship Specialty Start Date End Date Kedar Lopez MD [address] [place] [address] PCP - General 04/16/24 documented as of this encounter
--- OUTSIDE RECORDS SUMMARY | 2024-05-17 04:23 | XMS_ITS | Encounter Summary ---
Author Organization [facility] Address [address] [address] Care Team Providers Care Newspaper Carriers Supervisor Name Role Phone Kedar Lopez MD Primary Care Provider Encounter Details Date Type Department Care Team (Late Contact Info) Description 06/06/2015 Correspondence None No Primary/Referring, Phy HME EQUIPMENT GUEST ROOM INSPECTOR TICKET Social History Tobacco Use Types Packs/Day [...] Upcoming Encounters Date Type Department Care Team ([facility] Contact Info) Description 07/15/2024 2:00 PM NAIL FEEDER Appointment [facility] Gastroenterology 435 [place] [address] Emerson Clifford MD [address] [place] [address] 02/18/2025 10:30 AM CDT Appointment Specialty Center 401 D[facility] 401 [facility] [place] [address] Abby Maya MD [address] [place] [address] documented as of this encounter Visit Diagnoses Not on filedocumented in this encounter Care Teams Newspaper Carriers Supervisor Relationship Specialty Start Date End Date Kedar Lopez MD [address] [place] [address] PCP - General 04/16/24 documented as of this encounter
--- OUTSIDE RECORDS SUMMARY | 2024-05-17 04:23 | XMS_ITS | Encounter Summary ---
Author Organization [facility] Address [address], [place] [address] Care Team Providers Care Vocal Music Instructor Name Role Phone Kedar Lopez MD Primary Care Provider [phone] Encounter Details Date Type Department Care Team (Late Contact Info) Description 03/18/2015 Flowsheet External to External, [place] [address] BLOOD PRESSURE CHECK Social History Tobacco Use [...] Upcoming Encounters Date Type Department Care Team ([facility] Contact Info) Description 07/15/2024 2:00 PM PUBLIC ADDRESS ANNOUNCER Appointment [facility] Gastroenterology 435 [place] [address] Emerson Clifford MD [address] [place] [address] 02/18/2025 10:30 AM CDT Appointment Specialty Center 401 D[facility] Clinic 401 [place] [address] Abby Maya MD [address] [place] [address] documented as of this encounter Visit Diagnoses Not on filedocumented in this encounter Care Teams Vocal Music Instructor Relationship Specialty Start Date End Date Kedar Lopez MD [address] [place] [address] PCP - General 04/16/24 documented as of this encounter
--- OUTSIDE RECORDS SUMMARY | 2024-05-17 04:23 | XMS_ITS | Encounter Summary ---
Author Organization [facility] Address [address] [address] Care Team Providers Care Policy Change Clerk Name Role Phone Kedar Lopez MD Primary Care Provider + [phone] Encounter Details Date Type Department Care Team (Late Contact Info) Description 03/01/2013 Outside Hospital External to [facility] DISCHARGE SUMMARY Social History Tobacco [...] (Late Contact Info) Description 07/15/2024 2:00 PM HEAD MACHINIST Appointment [facility] Gastroenterology [address] [place] [address] Emerson Clifford MD [address] [place] [address] 02/18/2025 10:30 AM CDT Appointment [facility] [address] [facility] [place] [address]. [place] [address] Abby Maya MD [address] [place] [address] documented as of this encounter Visit Diagnoses Not on filedocumented in this encounter Care Teams Policy Change Clerk Relationship Specialty Start Date End Date Kedar Lopez MD [address] [place] [address] PCP - General 04/16/24 documented as of this encounter
--- OUTSIDE RECORDS SUMMARY | 2024-05-17 04:23 | XMS_ITS | Encounter Summary ---
Author Organization [facility] Address [address], [place] [address] Care Team Providers Care Special Deputy Sheriff Name Role Phone Sam Madrigal MD Primary Care Provider Unavaila ble Reason for Visit * Reason Comments Auto CPAP (new) Replacement Encounter Details Date Type Department Care Team (Late st Contact Info) Description 02/24/2024 10:30 AM CDT Home Medical [facility] [address] [facility] [place] [address] Colleen Alva LPN Social History [...] Alva LPN - 02/24/2024 10:30 AM CDT [facility] CPAP Note [facility] device. Patient was set up on ResMed S10 Auto CPAP with pressure of 11-15 cm H2O. EPR was set to 1. Patient was set up with heated humidifier. Patient received NO tubing-has at home. Patient was fitted with a ResMed A irTouch F20 medium full face mask. Ramp was set to off. Serial numbers: [id number] Additional supplies, settings and/or notes: filters . Patient returned 10 loaner device. SN: [id number] DN 467. [facility] Patient is set-up in [employer] and will be uploading sleep data via Modem. *MODEM FEE PAID Patient will not be followed by the [facility] SPM program due to Replacement PAP. Patient [...] st Contact Info) Description 07/15/2024 2:00 PM CERTIFIED WELLNESS PROGRAM COORDINATOR Appointment [facility] Gastroenterology [address] [place] [address] Emerson Clifford MD [address] [place] [address] 02/18/2025 10:30 AM CDT Appointment Specialty Center 401 Derm[facility]ology Clinic 401 [facility] [address] Abby Maya MD [address] [place] [address] documented as of this encounter Visit Diagnoses Not on filedocumented in this encounter Care Teams Special Deputy Sheriff Relationship Specialty Start Date End Date Sam Madrigal MD PCP - General 11/17/07 04/15/24 documented as of this encounter
--- OUTSIDE RECORDS SUMMARY | 2024-05-17 04:23 | XMS_ITS | Encounter Summary ---
Author Organization [facility] Address [address] [address] Care Team Providers Care Metallurgical Or Materials Technician Name Role Phone Kedar Lopez MD Primary Care Provider Encounter Details Date Type Department Care Team (Late st Contact Info) Description 02/21/2015 Correspondence [facility] [address] [place], [place] [id number] Sam Madrigal MD RX CLARIFICATION NEEDED Social [...] st Contact Info) Description 07/15/2024 2:00 PM COMMERCIAL TRUCK DRIVER Appointment [facility] Gastroenterology [address] [place], [place] [phone] Emerson Clifford MD [address] [place] [address] 02/18/2025 10:30 AM CDT Appointment Specialty Center 401 Derm[facility]ology Clinic 401 [facility] [place] [address] Abby Maya MD [address] [place] [address] documented as of this encounter Visit Diagnoses Not on filedocumented in this encounter Care Teams Metallurgical Or Materials Technician Relationship Specialty Start Date End Date Kedar Lopez MD [address] [place] [address] PCP - General 04/16/24 documented as of this encounter
--- OUTSIDE RECORDS SUMMARY | 2024-05-17 04:23 | XMS_ITS | Encounter Summary ---
Author Organization [facility] Address [address] [address] Care Team Providers Care Stull Installer Name Role Phone Kedar Lopez MD Primary Care Provider [phone] Encounter Details Date Type Department Care Team [...] Upcoming Encounters Date Type Department Care Team ([facility] Contact Info) Description 07/15/2024 2:00 PM DIFFERENTIAL TESTER Appointment [facility] Gastroenterology [address] [place] [address] Emerson Clifford MD [address] [place] [address] 02/18/2025 10:30 AM CDT Appointment [facility] [address] [place] [address]. [place] [address] Abby Maya MD [address] [place] [address] documented as of this encounter Visit Diagnoses Not on filedocumented in this encounter Care Teams Stull Installer Relationship Specialty Start Date End Date Kedar Lopez MD [address] [place] [address] PCP - General 04/16/24 documented as of this encounter
== END 2024-05-14 08:12 | disposition home or self-care (01) ==
LOC: NFLDREF 05-17 04:21
PROVIDERS: PCP Family Medicine; Referring Provider Family Medicine; Visit Provider Family Medicine
DX: I10 Essential (primary) hypertension (principal); R60.0 Localized edema
CPT/HCPCS: 80048

== ENCOUNTER 2024-06-03 08:12 | Outpatient (CLI) | payer MEDICARE, SELFPAY ==
--- OUTSIDE RECORDS SUMMARY | 2024-06-04 12:51 | XMS_ITS | Encounter Summary ---
Author [facility] Address [address] [place] [address] Care Team Providers Care Escort Car Driver Name Role Phone Kedar Lopez MD Primary Care Provider [phone] Reason for Referral * Procedure/Equipment (Routine) - New Request Specialty Diagnoses / Procedures Referred By Contmarixa t Referred To Contact Diagnoses Special screening for malignant neoplasms, colon Procedures Colonoscopy Screening - Mod Sedation Hope Dallas MD [address] [place] [address] Referral ID Status Reason Start Date Expiration Date V isits Requested Visits Authorized [id number] New Request 04/16/2024 04/16/2026 1 1 Encounter Details Date Type Department Care Team (Late st Contact Info) Description 04/16/2024 Notes/Orders [facility]ty [facility] [address] [place] [phone] Hope Dallas MD [address] [place] [phone] Special screening for malignant neoplasms, colon Social [...] Team (Late st Contact Info) Description 07/15/2024 2:30 PM COIL REPAIR TECHNICIAN Appointment [facility] Gastroenterology [address] [place], [place] [phone] Emerson Clifford MD [address] [place], [place] [phone] 02/18/2025 10:30 AM CDT Appointment Specialty Center 401 Dermatology Clinic 401 [facility] [place] [address] Abby Maya MD [address] [place], [place] [phone] Scheduled Orders Name Type Priority Associated Diagnoses Orde r Schedule Colonoscopy Screening - Mod Sedation GI Routine Special screening for malignant neoplasms, colon 1 Occurrences starting 04/16/2024 until 04/16/2026 documented as of this encounter Visit Diagnoses Diagnosis Special screening for malignant neoplasms, colon documented in this encounter Care Teams Escort Car Driver Relationship Specialty Start Date End Date Kedar Lopez MD [address] [place] [address] PCP - General 04/16/24 documented as of this encounter
--- OUTSIDE RECORDS SUMMARY | 2024-06-04 12:51 | XMS_ITS | Clinical Summary ---
Author Organization [facility] Address [place], [place] [address] Care Team Providers Care Special Tax Auditor Name Role Phone Sam Madrigal Bennie Primary [...] Influenza for age 65+ 03/29/2024 Care Teams Special Tax Auditor Relationship Specialty Start Date End Date Sam Madrigal PCP - General Family Practice 04/26/16
--- OUTSIDE RECORDS SUMMARY | 2024-06-04 12:51 | XMS_ITS | Referral Summary ---
Author Organization [facility] Address [address] [place] [address] Care Team Providers Care Rockboard Lather Name Role Phone Sam Madrigal MD Primary [...] of Treatment Not on file Care Teams Rockboard Lather Relationship Specialty Start Date End Date Sam Madrigal MD PCP - General 04/06/19
--- OUTSIDE RECORDS SUMMARY | 2024-06-04 12:51 | XMS_ITS | Clinical Summary ---
[facility] Address [address] [address] Care Team Providers Care Brick Dropper Name Role Phone Kedar Lopez MD Primary Care Provider + [phone] Source Comments You are receiving this document as you are listed as the primary care provider,follow-up provider, or the patient has been referred to you for consultation.This is in compliance with the Medicare and[facility] Hospital[facility] EHR Incentive Program,which states Providers who transition their patient to another setting of careor provider of care or refers their patient to another provider of care shouldprovide summary care record for each transition of care or referral. [employer] Allergies No known active allergies Medications Medication [...] Specialty Center [facility] 435 [facility] [place] [address] Hope Dallas MD Special screening for malignant neoplasms, colon from Last 3 Months Immunizations Name Administration Dates Next Due Flu Vac (3+ yrs) 05/23/2011,05/25/2010 [id number] 08/11/2009,06/27/2009 Influenza IIV3 (Trivalent) F luzone Highdose, 65+ Yrs (85588) 05/05/2020,04/27/2019 Influenza IIV4 (Quadrivalent ) Fluzone, 65+ [...] T Respiratory Rate 17 07/07/2019 12:05 PM CLAY BURNER Oxygen Saturation 95% 07/07/2019 12:05 PM CLAY BURNER Inhaled Oxygen Concentration - - Weight 95.7 kg (211 lb) 03/06/2021 9:21 AM CDT Height 175.3 cm (5' 9) 01/04/2021 4:44 PM CDT Body Mass Index 31.16 01/04/2021 4:44 PM CDT Plan of Treatment Upcoming Encounters Date Type Department Care Team (Late st Contact Info) Description 07/15/2024 2:30 PM CLAY BURNER Appointment [facility] Gastroenter[facility] [address] [place] [address] Emerson Clifford MD 435 [place] [address] 02/18/2025 10:30 AM CDT Appointment Specialty Center [facility] 401 [facility] [place] [address] Abby Maya MD [address] [place] [address] Health Maintenance Due Date Last Done Comments Medicare Annual Wellness Visit 01/05/2022 01/05/2021, 03/25/2019, 03/17/2018, Additional history exists Prediabetes: HGBA1C 03/06/2022 03/06/2021 RSV (1 - 1-dose 75+ series) 2022 COVID-19 Vaccine ( season) 2024 05/27/2023, 07/03/2022, 01/16/2022, Additional history exists Influenza (#1) 2024 05/27/2023, 110 10/2021, 05/16/2021, Additional history exists Colonoscopy 07/07/2024 [...] Mixed hyperlipidemia COLONOSCOPY Routine 07/07/2019 11:16 AM CLAY BURNER Screen for colon cancer HEPATITIS C ANTIBODY, WITH REFLEX Routine 03/17/2018 9:22 AM CDT Screening for viral disease from Last 3 Months or Most Recently Relevant to Health Maintenance Results * Hgb A1C (03/06/2021 10:24 AM CDT) Pathologist [facility] Hemoglobin A1C 5.5 <=5.6 % 03/06/2021 5:09 PM CDT [facility] Blood Venipuncture / Unknown 03/06/2021 10:24 AM CDT 03/06/2021 10:24 AM CDT Sam Madrigal MD LAB_1 Performing Organization Address [facility] Co de Phone Number [facility] [address] [phone] * Lipid Panel and Direct LDL(If Needed) (03/02/2021 7:56 AM CDT) [facility] Cholesterol 150 0 - 199 mg/dL 03/02/2021 11:43 AM CDT [facility] Triglyceride 82 <=149 mg/dL 03/02/2021 11:43 AM CDT [facility] HDL Cholesterol 51 >=40 mg/dL 03/02/2021 11:43 AM CDT [facility] LDL, Calculated 83 <130 mg/dL 03/02/2021 11:43 AM CDT [facility] Non HDL Chol, Calculated 99 <=159 mg/dL 03/02/2021 11:43 AM CDT [facility] Cholesterol/HDL Ratio 2.9 03/02/2021 11:43 AM CDT [facility] Hours Fasting 12 03/02/2021 11:43 AM CDT [facility] Blood Venipuncture / Unknown 03/02/2021 7:56 AM CDT 03/02/2021 7:56 AM CDT Sam Madrigal MD LAB_1 Performing Organization Address [facility] Co de Phone Number [facility] [address] [place] [address], [facility] [phone] [facility] [address] [place] [address], [facility] [phone] * COLONOSCOPY [[id number]] (07/07/2019 11:16 AM CLAY BURNER) 07/07/2019 11:1 6 AM CLAY BURNER Narrative GI ([facility]) - 07/07/2019 11:45 AM CLAY BURNER Instrument Name: 183 Indications: ? Screening for colorectal malignant neoplasm Providers: ? Emerson Clifford MD, Brandi Dowling LPN, ? Sury Dubon RN Referring MD: ?Sam Thul Medicines: ? Midazolam 2 mg IV, Fentanyl [...] Procedure Code(s): ?? --- Professional --- ? 50040, PT, Colonoscopy, flexible; with removal of ? [...] older (additional time may be reported with [address], as ? appropriate) Diagnosis Code(s): ?? --- Professional --- ? Z12.11, Encounter for screening for malignant ? neoplasm of colon ? K64.8, Other hemorrhoids ? D12.0, Benign neoplasm of cecum ? K57.30, Diverticulosis of large intestine without ? perforation or abscess without bleeding CPT copyright 2018 [employer]. All rights reserved. The codes documented in this report are preliminary and upon leather production machine operator review may be revised to meet current [...] pathology results. Procedure Code(s): --- Professional --- 64110, PT, Colonoscopy, flexible; with removal of tumor(s), polyp(s), or other lesion(s) by snare technique G0500, PT, Moderate sedation services provided by the same physician or other qualified health healthcare customer service performing a gastrointestinal endoscopic service that sedation supports, requiring the presence of an independent trained observer to assist in the monitoring of the patient's level of consciousness and physiological status; initial 15 minutes of intra-service time; patient age 5 years or older (additional time may be reported with 65930, as appropriate) Diagnosis Code(s): --- Professional --- Z12.11, Encounter for screening for malignant neoplasm of colon K64.8, Other hemorrhoids D12.0, Benign neoplasm of cecum K57.30, Diverticulosis of large intestine without perforation or abscess without bleeding CPT copyright 2018 [employer]. All rights reserved. The codes documented in this report are preliminary and upon leather production machine operator review may be revised to meet current compliance requirements. Attending Participation: Emerson Clifford MD 07/07/2019 11:45:26 AM This report has been signed electronically. Number of Addenda: 0 Note Initiated On: 07/07/2019 11:16 AM Emerson Clifford MD [facility] [place], [place] * Hepatitis C Antibody, with Reflex (03/17/2018 9:22 AM CDT) Anti-HCV Negative (Non Reactive) NEGNR [facility] Comment: Antibodies to HCV not detected. Does not exclude the possibility of exposure to HCV. 03/17/2018 9:22 AM CDT 03/17/2018 9:23 AM CDT Narrative [facility] - 03/17/2018 3:53 PM CDT Performed at [facility], [address] [place] [address] ??[id number] Sam Madrigal MD LAB_1 Performing Organization Address City/[facility]/ZIP Co de Phone Number [facility] [email or web address] [phone] from Last 3 Months or Most Recently Relevant to Health Maintenance Care Teams Brick Dropper Relationship Specialty Start Date End Date Kedar Lopez MD [address] [place] [address] PCP - General 04/16/24
--- OUTSIDE RECORDS SUMMARY | 2024-06-04 12:51 | XMS_ITS | Clinical Summary ---
Author Organization [facility] Address [address] [place] [address] Care Team Providers Care Roller Skate Repairer Name Role Phone Sam Madrigal MD [...] Vaccine (#1) 2024 05/23/2011, 2009 Care Teams Roller Skate Repairer Relationship Specialty Start Date End Date Sam Madrigal MD PCP - General 04/06/19
--- OUTSIDE RECORDS SUMMARY | 2024-06-04 12:51 | XMS_ITS | Encounter Summary ---
Author Organization [facility] Address [address], [place] [address] Care Team Providers Care Lumber Sorter Name Role Phone Kedar Lopez MD Primary Care Provider + [phone] Encounter Details Date Type Department Care Team (Late st Contact Info) Description 07/07/2019 Consent for Procedure/Treatme nt [facility] Department INFORMED CONSENT RECORD Social History [...] Care Team (Late Contact Info) Description 07/15/2024 2:30 PM LOBSTER FISHERMAN Appointment [facility] Gastroenterology [address] [place], [place] [phone] Emerson Clifford MD [address] [place] [address] 02/18/2025 10:30 AM CDT Appointment Specialty Center 401 [facility] 401 [facility] [place] [address] Abby Maya MD [address] [place], [place] [id number] documented as of this encounter Visit Diagnoses Not on filedocumented in this encounter Care Teams Lumber Sorter Relationship Specialty Start Date End Date Kedar Lopez MD [address] [place] [address] PCP - General 04/16/24 documented as of this encounter
--- OUTSIDE RECORDS SUMMARY | 2024-06-04 12:52 | XMS_ITS | Encounter Summary ---
Author Organization [facility] Address [address], [place] [address] Care Team Providers Care Voip Technician Name Role Phone Kedar Lopez MD Primary Care Provider + [phone] Encounter Details Date Type Department Care Team [...] st Contact Info) Description 07/15/2024 2:30 PM SUPERVISOR PARK WORKERS Appointment [facility] Gastroenterology [address] [place] [address] Emerson Clifford MD [address] [place] [address] 02/18/2025 10:30 AM CDT Appointment Specialty Center 401 [facility] 401 [place] [address] Abby Maya MD [address] [place] [address] documented as of this encounter Visit Diagnoses Not on filedocumented in this encounter Care Teams Voip Technician Relationship Specialty Start Date End Date Kedar Lopez MD [address] [place] [address] PCP - General 04/16/24 documented as of this encounter
--- OUTSIDE RECORDS SUMMARY | 2024-06-04 12:52 | XMS_ITS | Encounter Summary ---
Author Organization [facility] Address [address], [place] [address] Care Team Providers Care Mail Handlers Supervisor Name Role Phone Kedar Lopez MD [...] Upcoming Encounters Date Type Department Care Team ([facility] Contact Info) Description 07/15/2024 2:30 PM LADLE CAR OPERATOR Appointment [facility] Gastroenterology [address] [place] [address] Emerson Clifford MD [address] [place] [address] 02/18/2025 10:30 AM CDT Appointment Specialty [place] 401 [facility] 401 [employer] [place] [address] Abby Maya MD [address] [place] [address] documented as of this encounter Visit Diagnoses Not on filedocumented in this encounter Care Teams Mail Handlers Supervisor Relationship Specialty Start Date End Date Kedar Lopez MD [address] [place] [address] PCP - General 04/16/24 documented as of this encounter
--- OUTSIDE RECORDS SUMMARY | 2024-06-04 12:52 | XMS_ITS | Encounter Summary ---
Author Organization [facility] Address [address], [place] [address] Care Team Providers Care Welder/Fabricator Name Role Phone Kedar Lopez MD Primary Care Provider [phone] Encounter Details Date Type Department Care Team (Late Contact Info) Description 06/25/2017 Correspondence None No Primary/Referring, Phy HME EQUIPMENT DEVELOPMENT PROFESSIONAL TICKET CPAP Social History Tobacco Use Types [...] Upcoming Encounters Date Type Department Care Team ([facility] Contact Info) Description 07/15/2024 2:30 PM CLOCK REPAIRER Appointment [facility] Gastroenterology [address] [place] [address] Emerson Clifford MD [address] [place] [address] 02/18/2025 10:30 AM CDT Appointment Specialty Center 401 D[facility] Clinic 401 [facility] [place] [address] Abby Maya MD [address] [place] [address] documented as of this encounter Visit Diagnoses Not on filedocumented in this encounter Care Teams Welder/Fabricator Relationship Specialty Start Date End Date Kedar Lopez MD [address] [place] [address] PCP - General 04/16/24 documented as of this encounter
--- OUTSIDE RECORDS SUMMARY | 2024-06-04 12:52 | XMS_ITS | Encounter Summary ---
Author Organization [facility] Address [address], [place] [address] Care Team Providers Care Pediatrician Managing Partner Name Role Phone Kedar Lopez MD Primary Care Provider + [phone] Encounter Details Date Type Department Care Team [...] (Late Contact Info) Description 07/15/2024 2:30 PM SERVICE DEPARTMENT MANAGER Appointment [facility] Gastroenterology [address] [place], [place] [phone] Emerson Clifford MD [address] [place] [address] 02/18/2025 10:30 AM CDT Appointment [facility] 401 [facility] 401 [facility] [place] [address] Abby Maya MD [address] [place] [address] documented as of this encounter Visit Diagnoses Not on filedocumented in this encounter Care Teams Pediatrician Managing Partner Relationship Specialty Start Date End Date Kedar Lopez MD [address] [place] [address] PCP - General 04/16/24 documented as of this encounter
--- OUTSIDE RECORDS SUMMARY | 2024-06-04 12:52 | XMS_ITS | Encounter Summary ---
Author Organization [facility] Address [address] [address] Care Team Providers Care House Parent Name Role Phone Kedar Lopez MD Primary Care Provider + [phone] Encounter Details Date Type Department Care Team (Latest Contact Info) Description 05/27/2019 Flowsheet External to External, [place] [address] BP Social History Tobacco Use Types Packs/Day [...] st Contact Info) Description 07/15/2024 2:30 PM LABEL MACHINE OPERATOR Appointment [facility] Gastroenterology [address] [place] [address] Emerson Clifford MD [address] [place] [address] 02/18/2025 10:30 AM CDT Appointment Specialty Center 401 [facility] Clinic 401 [place] [address] Abby Maya MD [address] [place], [place] [address] documented as of this encounter Visit Diagnoses Not on filedocumented in this encounter Care Teams House Parent Relationship Specialty Start Date End Date Kedar Lopez MD [address] [place] [address] PCP - General 04/16/24 documented as of this encounter
--- OUTSIDE RECORDS SUMMARY | 2024-06-04 12:52 | XMS_ITS | Encounter Summary ---
Author Organization [facility] Address [address], [place] [address] Care Team Providers Care Phone Technician Name Role Phone Kedar Lopez MD Primary Care Provider + [phone] Encounter Details Date Type Department Care Team (Late Contact Info) Description 03/01/2013 Outside Hospital External to [facility] DIS[facility] SUMMARY Social History Tobacco Use [...] (Late Contact Info) Description 07/15/2024 2:30 PM BEAM DYER Appoint[address] [facility] Gastroenterology [address] [place] [address] Emerson Clifford MD [address] [place] [address] 02/18/2025 10:30 AM CDT Appointment [facility] [address] [place] [address]. [place] [address] Abby Maya MD [address] [place] [address] documented as of this encounter Visit Diagnoses Not on filedocumented in this encounter Care Teams Phone Technician Relationship Specialty Start Date End Date Kedar Lopez MD [address] [place] [address] PCP - General 04/16/24 documented as of this encounter
--- OUTSIDE RECORDS SUMMARY | 2024-06-04 12:52 | XMS_ITS | Encounter Summary ---
Author Organization [facility] Address [address], [place] [address] Care Team Providers Care Digital Marketing Officer Name Role Phone Kedar Lopez MD Primary Care Provider + [phone] Encounter Details Date Type Department Care Team [...] (Late Contact Info) Description 07/15/2024 2:30 PM WATER SOFTENER INSTALLER Appointment [facility] Gastroenterology [address] [place], [place] [phone] Emerson Clifford MD [address] [place] [address] 02/18/2025 10:30 AM CDT Appointment [facility] 401 [facility] 401 [facility] [place] [address] Abby Maya MD [address] [place] [address] documented as of this encounter Visit Diagnoses Not on filedocumented in this encounter Care Teams Digital Marketing Officer Relationship Specialty Start Date End Date Kedar Lopez MD [address] [place] [address] PCP - General 04/16/24 documented as of this encounter
--- OUTSIDE RECORDS SUMMARY | 2024-06-04 12:52 | XMS_ITS | Encounter Summary ---
Author Organization [facility] Address [address], [place] [address] Care Team Providers Care Loop Tacker Name Role Phone Kedar Lopez MD Primary Care Provider Encounter Details Date Type Department Care Team (Late Contact Info) Description 06/06/2015 Correspondence None No Primary/Referring, Phy HME EQUIPMENT SERVICE STATION MANAGER TICKET Social History Tobacco Use Types Packs/Day [...] Upcoming Encounters Date Type Department Care Team ([facility] Contact Info) Description 07/15/2024 2:30 PM PICKLING DRUM OPERATOR Appointment [facility] Gastroenterology [address] [place] [address] Emerson Clifford MD [address] [place] [address] 02/18/2025 10:30 AM CDT Appointment Specialty Center 401 Dermatology Clinic 401 [facility] [place] [address] Abby Maya MD [address] [place] [address] documented as of this encounter Visit Diagnoses Not on filedocumented in this encounter Care Teams Loop Tacker Relationship Specialty Start Date End Date Kedar Lopez MD [address] [place] [address] PCP - General 04/16/24 documented as of this encounter
--- OUTSIDE RECORDS SUMMARY | 2024-06-04 12:52 | XMS_ITS | Encounter Summary ---
Author Organization [facility] Address [address] [address] Care Team Providers Care Coffee Farmer Name Role Phone Kedar Lopez MD Primary Care Provider + [phone] Encounter Details Date Type Department Care Team [...] (Late Contact Info) Description 07/15/2024 2:30 PM COMMERCIAL SALES SPECIALIST Appointment [facility] Gastroenterology [address] [place], [place] [phone] Emerson Clifford MD [address] [place] [address] 02/18/2025 10:30 AM CDT Appointment [facility] 401 [facility] 401 [facility] [address] Abby Maya MD [address] [place] [address] documented as of this encounter Visit Diagnoses Not on filedocumented in this encounter Care Teams Coffee Farmer Relationship Specialty Start Date End Date Kedar Lopez MD [address] [place] [address] PCP - General 04/16/24 documented as of this encounter
--- OUTSIDE RECORDS SUMMARY | 2024-06-04 12:52 | XMS_ITS | Encounter Summary ---
Author Organization [facility] Address [address], [place] [address] Care Team Providers Care Wedding Transportation Driver Name Role Phone Kedar Lopez MD Primary Care Provider + [phone] Encounter Details Date Type Department Care Team (Late Contact Info) Description 03/01/2013 Outside Hospital External to [facility] OP PROCEDURE KNEE ARTHROPLASTY Social History Tobacco [...] Contact Info) Description 07/15/2024 2:30 PM SERVICE CAPTAIN Appointment [facility] Gastroenterology [address] [place] [address] Emerson Clifford MD [address] [place] [address] 02/18/2025 10:30 AM CDT Appointment [facility] [address] [place] [address]. [place] [address] Abby Maya MD [address] [place] [address] documented as of this encounter Visit Diagnoses Not on filedocumented in this encounter Care Teams Wedding Transportation Driver Relationship Specialty Start Date End Date Kedar Lopez MD [address] [place] [address] PCP - General 04/16/24 documented as of this encounter
--- OUTSIDE RECORDS SUMMARY | 2024-06-04 12:52 | XMS_ITS | Encounter Summary ---
Author Organization [facility] Address [address] [address] Care Team Providers Care Sanitation Worker Hosing Machinery Name Role Phone Kedar Lopez MD Primary Care Provider [phone] Encounter Details Date Type Department Care Team (Late Contact Info) Description 06/21/2014 Correspondence None No Primary/Referring, Phy EQUIPMENT OCCASIONAL BABYSITTER TICKET Social History Tobacco Use Types Packs/Day [...] Upcoming Encounters Date Type Department Care Team ([facility] Contact Info) Description 07/15/2024 2:30 PM GUEST SERVICE AIDE Appointment [facility] Gastroenterology [address] [place] [address] Emerson Clifford MD [address] [place] [address] 02/18/2025 10:30 AM CDT Appointment Specialty Center 401 Dermatology Clinic 401 [facility] [place] [address] Abby Maya MD [address] [place] [address] documented as of this encounter Visit Diagnoses Not on filedocumented in this encounter Care Teams Sanitation Worker Hosing Machinery Relationship Specialty Start Date End Date Kedar Lopez MD [address] [place] [address] PCP - General 04/16/24 documented as of this encounter
--- OUTSIDE RECORDS SUMMARY | 2024-06-04 12:52 | XMS_ITS | Encounter Summary ---
Author Organization [facility] Address [address] [address] Care Team Providers Care Component Technician Name Role Phone Kedar Lopez MD Primary Care Provider + [phone] Encounter Details Date Type Department Care Team (Late Contact Info) Description 01/16/2012 Consent for Procedure/Treatme nt [facility] Department INFORMED CONSENT FOR SLEEP/AUDIO/VIDEO [...] (Late Contact Info) Description 07/15/2024 2:30 PM LIVESTOCK COUNTER Appointment [facility] Gastroenterology [address] [place] [address] Emerson Clifford MD [address] [place] [address] 02/18/2025 10:30 AM CDT Appointment [facility] [address] [place] [address]. [place] [address] Abby Maya MD [address] [place] [address] documented as of this encounter Visit Diagnoses Not on filedocumented in this encounter Care Teams Component Technician Relationship Specialty Start Date End Date Kedar Lopez MD [address] [place] [address] PCP - General 04/16/24 documented as of this encounter
--- OUTSIDE RECORDS SUMMARY | 2024-06-04 12:52 | XMS_ITS | Encounter Summary ---
Author Organization [facility] Address [address] [address] Care Team Providers Care Radio Antenna Installer Name Role Phone Kedar Lopez MD Primary Care Provider Encounter Details Date Type Department Care Team (Late Contact Info) Description 03/31/2015 Correspondence None No Primary/Referring, Phy HME EQUIPMENT MANAGER TECHNICAL SALES TICKET Social History Tobacco Use Types Packs/Day [...] (Late Contact Info) Description 07/15/2024 2:30 PM PROFESSOR SCULPTURE Appointment [facility] Gastroenterology [address] [place] [address] Emerson Clifford MD [address] [place] [address] 02/18/2025 10:30 AM CDT Appointment Specialty Center 401 Dermatology Clinic 401 [facility] [place] [address] Abby Maya MD [address] [place] [address] documented as of this encounter Visit Diagnoses Not on filedocumented in this encounter Care Teams Radio Antenna Installer Relationship Specialty Start Date End Date Kedar Lopez MD [address] [place] [address] PCP - General 04/16/24 documented as of this encounter
--- OUTSIDE RECORDS SUMMARY | 2024-06-04 12:52 | XMS_ITS | Encounter Summary ---
Author Organization [facility] Address [address] [place] [address] Care Team Providers Care News Department Intern Name Role Phone Kedar Lopez MD Primary Care Provider Encounter Details Date Type Department Care Team (Late Contact Info) Description 07/07/2012 Correspondence [facility] [address] [place] [address] Sam Madrigal MD MEDICATIONS Social History Tobacco [...] Madrigal MD - 07/07/2012 12:00 AM CST TREATER APPRENTICE documented in this encounter Plan of Treatment Upcoming Encounters Date Type Department Care Team (Late Contact Info) Description 07/15/2024 2:30 PM HEAT TREATER APPRENTICE Appointment [facility] Gastroenterology [address] [place] [address] Emerson Clifford MD 435 [place] [address] 02/18/2025 10:30 AM CDT Appointment [facility] 401 [facility] [place] [address] Abby Maya MD [address] [place], [place] [id number] documented as of this encounter Visit Diagnoses Not on filedocumented in this encounter Care Teams News Department Intern Relationship Specialty Start Date End Date Kedar Lopez MD [address] [place] [address] PCP - General 04/16/24 documented as of this encounter
--- OUTSIDE RECORDS SUMMARY | 2024-06-04 12:52 | XMS_ITS | Encounter Summary ---
Author Organization [facility] Address [address], [place] [address] Care Team Providers Care Firefighter Type One Name Role Phone Kedar Lopez MD Primary Care Provider + [phone] Encounter Details Date Type Department Care Team (Latest Contact Info) Description 01/26/2013 Flowsheet External to External, [place] [address] BP Social History Tobacco Use Types Packs/Day [...] Care Team ( Contact Info) Description 07/15/2024 2:30 PM DEALER SALES MANAGER Appointment [facility] Gastroenterology [address] [place], [place] [phone] Emerson Clifford MD [address] [place], [place] [id number] 02/18/2025 10:30 AM CDT Appointment [facility] 401 [facility] [place] [address] Abby Maya MD [address] [place] [address] documented as of this encounter Visit Diagnoses Not on filedocumented in this encounter Care Teams Firefighter Type One Relationship Specialty Start Date End Date Kedar Lopez MD [address] [place] [address] PCP - General 04/16/24 documented as of this encounter
--- OUTSIDE RECORDS SUMMARY | 2024-06-04 12:52 | XMS_ITS | Encounter Summary ---
Author Organization [facility] Address [address], [place] [address] Care Team Providers Care Manager Field Name Role Phone Kedar Lopez MD Primary Care Provider Encounter Details Date Type Department Care Team (Late Contact Info) Description 04/07/2014 Correspondence None No Primary/Referring, Phy EQUIPMENT FOOTWEAR STITCHER TICKET CPAP Social History Tobacco Use Types [...] Upcoming Encounters Date Type Department Care Team ([facility] Contact Info) Description 07/15/2024 2:30 PM CONSTRUCTION REP Appointment [facility] Gastroenterology 435 [place] [address] Emerson Clifford MD [address] [place] [address] 02/18/2025 10:30 AM CDT Appointment [facility] 401 [facility] Clinic 401 [place] [address] Abby Maya MD [address] [place] [address] documented as of this encounter Visit Diagnoses Not on filedocumented in this encounter Care Teams Manager Field Relationship Specialty Start Date End Date Kedar Lopez MD [address] [place] [address] PCP - General 04/16/24 documented as of this encounter
--- OUTSIDE RECORDS SUMMARY | 2024-06-04 12:52 | XMS_ITS | Encounter Summary ---
Author Organization [facility] Address [address], [place] [address] Care Team Providers Care Bottle Carrier Name Role Phone Kedar Lopez MD Primary Care Provider + [phone] Encounter Details Date Type Department Care Team (Latest Contact Info) Description 03/29/2015 Flowsheet External to External, [place] [address] HOME BP CHECKS Social History Tobacco Use [...] st Contact Info) Description 07/15/2024 2:30 PM WEATHER ALGORITHM SCIENTIST Appointment [facility] Gastroenterology [address] [place] [address] Emerson Clifford MD [address] [place] [address] 02/18/2025 10:30 AM CDT Appointment [facility] 401 Dermatology Clinic 401 [place] [address] Abby Maya MD [address] [place] [address] documented as of this encounter Visit Diagnoses Not on filedocumented in this encounter Care Teams Bottle Carrier Relationship Specialty Start Date End Date Kedar Lopez MD [address] [place] [address] PCP - General 04/16/24 documented as of this encounter
--- OUTSIDE RECORDS SUMMARY | 2024-06-04 12:52 | XMS_ITS | Encounter Summary ---
Author Organization [facility] Address [address] [address] Care Team Providers Care Forest Examiner Name Role Phone Kedar Lopez MD Primary Care Provider + [phone] Encounter Details Date Type Department Care Team [...] (Late Contact Info) Description 07/15/2024 2:30 PM FRONT LOADER RESIDENTIAL DRIVER Appointment [facility] Gastroenterology 435 [place] [address] Emerson Clifford MD [address] [place] [address] 02/18/2025 10:30 AM CDT [facility]ointment [facility] 401 [facility] [address] Abby Maya MD [address] [place] [address] documented as of this encounter Visit Diagnoses Not on filedocumented in this encounter Care Teams Forest Examiner Relationship Specialty Start Date End Date Kedar Lopez MD [address] [place] [address] PCP - General 04/16/24 documented as of this encounter
--- OUTSIDE RECORDS SUMMARY | 2024-06-04 12:52 | XMS_ITS | Encounter Summary ---
Author Organization [facility] Address [address] [address] Care Team Providers Care Brass Instrument Repair Technician Name Role Phone Kedar Lopez MD [...] Encounters Date Type Department Care Team ([facility] Contact Info) Description 07/15/2024 2:30 PM COLORER HIDES AND SKINS Appointment [facility] Gastroenterology [address] [place] [address] Emerson Clifford MD [address] [place] [address] 02/18/2025 10:30 AM CDT Appointment [facility] [address] [place] [address]. [place] [address] Abby Maya MD [address] [place] [address] documented as of this encounter Visit Diagnoses Not on filedocumented in this encounter Care Teams Brass Instrument Repair Technician Relationship Specialty Start Date End Date Kedar Lopez MD [address] [place] [address] PCP - General 04/16/24 documented as of this encounter
--- OUTSIDE RECORDS SUMMARY | 2024-06-04 12:52 | XMS_ITS | Encounter Summary ---
Author Organization [facility] Address [address] [address] Care Team Providers Care Federal Law Clerk Name Role Phone Kedar Lopez MD Primary Care Provider Encounter Details Date Type Department Care Team (Late st Contact Info) Description 02/21/2015 Correspondence [facility] [address] [place], [place] [phone] aSm Madrigal MD RX CLARIFICATION NEEDED Social History [...] st Contact Info) Description 07/15/2024 2:30 PM CYBER SYSTEMS ADMINISTRATOR Appointment [facility] Gastroenterology [address] [place], [place] [phone] Emerson Clifford MD [address] [place] [address] 02/18/2025 10:30 AM CDT Appointment [facility] 401 Dermatology Clinic 401 [place] [address] Abby Maya MD [address] [place] [address] documented as of this encounter Visit Diagnoses Not on filedocumented in this encounter Care Teams Federal Law Clerk Relationship Specialty Start Date End Date Kedar Lopez MD [address] [place] [address] PCP - General 04/16/24 documented as of this encounter
--- OUTSIDE RECORDS SUMMARY | 2024-06-04 12:52 | XMS_ITS | Encounter Summary ---
Author Organization [facility] Address [address] [address] Care Team Providers Care Teletype Technician Name Role Phone Kedar Lopez MD Primary Care Provider Encounter Details Date Type Department Care Team (Late Contact Info) Description 03/18/2015 Flowsheet External to External, [place] [address] BLOOD PRESSURE CHECK Social History Tobacco Use [...] Upcoming Encounters Date Type Department Care Team ([facility] Contact Info) Description 07/15/2024 2:30 PM NUTRITION AIDE Appoint[address] [facility] Gastroenterology [address] [place] [address] Emerson Clifford MD [address] [place] [address] 02/18/2025 10:30 AM CDT Appointment [facility] 401 Dermatology Clinic 401 [facility] [place] [address] Abby Maya MD [address] [place] [address] documented as of this encounter Visit Diagnoses Not on filedocumented in this encounter Care Teams Teletype Technician Relationship Specialty Start Date End Date Kedar Lopez MD [address] [place] [address] PCP - General 04/16/24 documented as of this encounter
== END 2024-06-03 08:13 | disposition home or self-care (01) ==
LOC: NFLDREF 06-04 12:50
PROVIDERS: PCP Family Medicine; Referring Provider Family Medicine; Visit Provider Family Medicine
DX: I10 Essential (primary) hypertension (principal)
CPT/HCPCS: 80048

== ENCOUNTER 2024-07-02 07:55 | Outpatient (CLI) | payer MEDICARE, SELFPAY ==
--- OUTSIDE RECORDS SUMMARY | 2024-07-05 15:59 | XMS_ITS | Clinical Summary ---
Author Organization [employer] [facility] Address [place], [place] [address] Care Team Providers Care Cosmetician Name Role Phone Sam Madrigal Bennie Primary Care Provider Unavailabl e Allergies No known active allergies Medications clindamycin (CLEOCIN) 150 mg capsuleIndicatio ns:Aftercare following joint replacement 2 tablets 1 hour before appointment and 1 tablet 6 hours after initial dose. 3 capsule 3 5 Active atenolol (TENORMIN) 50 mg tablet 6 Active lisinopril (PRINIVIL; ZESTRIL) 20 mg tablet 6 Active simvastatin (ZOCOR) 20 mg tablet 6 Active Active Problems Problem Noted Date Diagnosed [...] Recorded Sex Assigned at Not on file Legal Sex Male 3:06 PM CDT Gender Identity Not on file Sexual Orientation [...] 11/25/2020, 11/04/2020 Influenza for age 65+ 03/29/2024 Insurance [employer] [place] BLUE MR [place] ONLY Care Teams Cosmetician Relationship Specialty Start Date End Date Sam Madrigal PCP - General Family Practice 04/26/16
--- OUTSIDE RECORDS SUMMARY | 2024-07-05 15:59 | XMS_ITS | Referral Summary ---
Author Organization [facility] Address [address] [place] [address] Care Team Providers Care Resawyer Name Role Phone Sam Madrigal MD Primary Care Provider Unavaila ble Allergies No known active allergies Medications HYDROcodone-kvng taminophen (NORCO) 5-325 mg oral tablet Take 1-2 [...] at Not on file Legal Sex Male 11:54 AM CDT Gender Identity Not on file Sexual Orientation Not on file Plan of Treatment Not on file Insurance [facility] MEDICARE ADVANTAGE Care Teams Resawyer Relationship Specialty Start Date End Date Sam Madrigal MD PCP - General 04/06/19
--- OUTSIDE RECORDS SUMMARY | 2024-07-05 15:59 | XMS_ITS | Clinical Summary ---
Author Organization [facility] Address [address] [place] [address] Care Team Providers Care Decorator Store Name Role Phone Sam Madrigal MD Primary [...] - 1-dose 75+ series) 2022 COVID-19 Vaccine (1 - season) 2024 Influenza Vaccine (#1) 2024 05/23/2011, 2009 Insurance [facility] MEDICARE ADVANTAGE Care Teams Decorator Store Relationship Specialty Start Date End Date Sam Madrigal MD PCP - General 04/06/19
--- OUTSIDE RECORDS SUMMARY | 2024-07-05 16:00 | XMS_ITS | Encounter Summary ---
Author Organization [facility] Address [address] [address] Care Team Providers Care Director Of Field Sales Name Role Phone Kedar Lopez MD Primary Care Provider Encounter Details Date Type Department Care Team (Late st Contact Info) Description 07/01/2024 E-Visit Gastroenterology Procedures at [facility] [address] [place] [address] [place] [address] Social History Tobacco Use Types Packs/Day Years [...] Upcoming Encounters Date Type Department Care Team (Latest Contact Info) Description 07/15/2024 2:30 PM [facility] Hospital Encounter Gastroenterology Procedures at [facility] [address] [place] [address] Emerson Clifford MD [address] [place] [address] 02/18/2025 10:30 AM CDT Appointment [facility] [address] [facility] [place] [address]. [place] [address] Abby Maya MD 401 [place] [address] documented as of this encounter Visit Diagnoses Not on filedocumented in this encounter Care Teams Director Of Field Sales Relationship Specialty Start Date End Date Kedar Lopez MD [address] [place] [address] PCP - General 04/16/24 documented as of this encounter
--- OUTSIDE RECORDS SUMMARY | 2024-07-05 16:00 | XMS_ITS | Encounter Summary ---
Author Organization [facility] Address [address], [place] [address] Care Team Providers Care Welding Machine Operator Helper Arc Name Role Phone Kedar Lopez MD Primary Care Provider [phone] Encounter Details Date Type Department Care Team (Late st Contact Info) Description 06/06/2015 Correspondence None No Primary/Referring, Phy HME EQUIPMENT WELFARE MANAGER TICKET Social History Tobacco Use Types [...] (Latest Contact Info) Description 07/15/2024 2:30 PM [facility] Hospital Encounter Gastroenterology Procedures at [facility] [address] [place] [address] Emerson Clifford MD [address] [place] [address] 02/18/2025 10:30 AM CDT Appointment [facility] 401 Dermatology Clinic 401 [facility] [place] [address] Abby Maya MD [address] [place] [address] documented as of this encounter Visit Diagnoses Not on filedocumented in this encounter Care Teams Welding Machine Operator Helper Arc Relationship Specialty Start Date End Date Kedar Lopez MD [address] [place] [address] PCP - General 04/16/24 documented as of this encounter
--- OUTSIDE RECORDS SUMMARY | 2024-07-05 16:00 | XMS_ITS | Encounter Summary ---
Author Organization [facility] Address [address], [place] [address] Care Team Providers Care Kingsbury Machine Operator Name Role Phone Kedar Lopez MD Primary Care Provider [phone] Encounter Details Date Type Department Care Team (Late st Contact Info) Description 07/07/2012 Correspondence [facility] [address] [place] [address] Sam Madrigal MD MEDICATIONS Social History Tobacco [...] Madrigal MD - 07/07/2012 12:00 AM CST TING GOODS SALES ASSOCIATE documented in this encounter Plan of Treatment Upcoming Encounters Date Type Department Care Team (Latest Contact Info) Description 07/15/2024 2:30 PM SPORTING GOODS SALES ASSOCIATE Hospital Encounter Gastroenterology Procedures at [address] [id number] Emerson Clifford MD [address] [place] [address] 02/18/2025 10:30 AM CDT Appointment [facility] 401 Dermatology Clinic 401 [facility] [place] [address] Abby Maya MD [address] [place] [address] documented as of this encounter Visit Diagnoses Not on filedocumented in this encounter Care Teams [place] Machine Operator Relationship Specialty Start Date End Date Kedar Lopez MD [address] [place] [address] PCP - General 04/16/24 documented as of this encounter
--- OUTSIDE RECORDS SUMMARY | 2024-07-05 16:00 | XMS_ITS | Encounter Summary ---
Author Organization [facility] Address [address] [address] Care Team Providers Care Educational Psychologist Name Role Phone Kedar Lopez MD Primary Care Provider Encounter Details Date Type Department Care Team (Late st Contact Info) Description 03/31/2015 Correspondence None No Primary/Referring, Phy HME EQUIPMENT OPEN SOURCE DEVELOPER TICKET Social History Tobacco Use Types Packs/Day [...] (Latest Contact Info) Description 07/15/2024 2:30 PM [facility] Encounter Gastroenterology Procedures at [facility] [address] [place] [address] Emerson Clifford MD [address] [place] [address] 02/18/2025 10:30 AM CDT Appointment [facility] 401 Dermatology Clinic 401 [facility] [place] [address] Abby Maya MD [address] [place] [address] documented as of this encounter Visit Diagnoses Not on filedocumented in this encounter Care Teams Educational Psychologist Relationship Specialty Start Date End Date Kedar Lopez MD [address] [place] [address] PCP - General 04/16/24 documented as of this encounter
--- OUTSIDE RECORDS SUMMARY | 2024-07-05 16:00 | XMS_ITS | Encounter Summary ---
Author Organization [facility] Address [address] [address] Care Team Providers Care Carbon Brushes Assembler Name Role Phone Kedar Lopez MD Primary Care Provider + [phone] Encounter Details Date Type Department Care Team (Late st Contact Info) Description 07/07/2019 Consent for Procedure/Treatme nt [facility] Department INFORMED CONSENT RECORD Social [...] (Latest Contact Info) Description 07/15/2024 2:30 PM HEAD ORTHOPEDIC TEAM PHYSICIAN Hospital Encounter Gastroenterology Procedures at [facility] [address] [place], [place] [phone] Emerson Clifford MD [address] [place] [address] 02/18/2025 10:30 AM CDT Appointment Specialty [place] 401 Dermatology Clinic 401 [facility] [place] [address] Abby Maya MD 401 [place] [address] documented as of this encounter Visit Diagnoses Not on filedocumented in this encounter Care Teams Carbon Brushes Assembler Relationship Specialty Start Date End Date Kedar Lopez MD [address] [place] [address] PCP - General 04/16/24 documented as of this encounter
--- OUTSIDE RECORDS SUMMARY | 2024-07-05 16:00 | XMS_ITS | Encounter Summary ---
Author Organization [facility] Address [address] [address] Care Team Providers Care Chin Strap Cutter Name Role Phone Kedar Lopez MD Primary Care Provider Encounter Details Date Type Department Care Team (Latest Contact Info) Description 03/29/2015 Flowsheet External to External, [place] [address] HOME BP CHECKS Social History Tobacco Use [...] (Latest Contact Info) Description 07/15/2024 2:30 PM ARCHITECTURE INTERN Hospital Encounter Gastroenterology Procedures at [address] [place] [address] Emerson Clifford MD [address] [place] [address] 02/18/2025 10:30 AM CDT Appointment [facility] 401 Dermatology Clinic 401 [place] [address] Abby Maya MD [address] [place] [address] documented as of this encounter Visit Diagnoses Not on filedocumented in this encounter Care Teams Chin Strap Cutter Relationship Specialty Start Date End Date Kedar Lopez MD [address] [place] [address] PCP - General 04/16/24 documented as of this encounter
--- OUTSIDE RECORDS SUMMARY | 2024-07-05 16:00 | XMS_ITS | Encounter Summary ---
Author Organization [facility] Address [address] [place] [address] Care Team Providers Care Floor Technician Name Role Phone Kedar Lopez MD Primary Care Provider Reason for Referral * Procedure/Equipment (Routine) - New Request Specialty Diagnoses / Procedures Referred By Contmarixa t Referred To Contact Diagnoses Special screening for malignant neoplasms, colon Procedures Colonoscopy Screening - Mod Sedation Hope Dallas MD [address] [place] [address] Referral ID Status Reason Start Date Expiration Date V isits Requested Visits Authorized [id number] New Request 04/16/2024 04/16/2026 1 1 Encounter Details Date Type Department Care Team (Late st Contact Info) Description 04/16/2024 Notes/Orders Digestive Care at [address] [id number] Hope Dallas MD [address] [place] [id number] Special screening for malignant neoplasms, colon Social [...] (Latest Contact Info) Description 07/15/2024 2:30 PM BUNK HOUSE WORKER Hospital Encounter Gastroenterology Procedures at [facility] [address] [place] [address] Emerson Clifford MD [address] [place], [place] [phone] 02/18/2025 10:30 AM CDT Appointment [facility] 401 Dermatology Clinic 401 [facility] [place] [address] Abby Maya MD [address] [place], [place] [phone] Scheduled Orders Name Type Priority Associated Diagnoses Orde r Schedule Colonoscopy Screening - Mod Sedation GI Routine Special screening for malignant neoplasms, colon 1 Occurrences starting 04/16/2024 until 04/16/2026 documented as of this encounter Visit Diagnoses Diagnosis Special screening for malignant neoplasms, colon documented in this encounter Care Teams Floor Technician Relationship Specialty Start Date End Date Kedar Lopez MD [address] [place] [address] PCP - General 04/16/24 documented as of this encounter
--- OUTSIDE RECORDS SUMMARY | 2024-07-05 16:00 | XMS_ITS | Encounter Summary ---
Author Organization [facility] Address [address], [place] [address] Care Team Providers Care Customs Agent Name Role Phone Kedar Lopez MD Primary Care Provider + [phone] Encounter Details Date Type Department Care Team [...] (Latest Contact Info) Description 07/15/2024 2:30 PM DENTAL LABORATORY TECHNICIAN Hospital Encounter Gastroenterology Procedures at [facility] [address] [place] [address] Emerson Clifford MD [address] [place] [address] 02/18/2025 10:30 AM CDT Appointment [facility] 401 D[address]at[address] [place] [address]. [place] [address] Abby Maya MD [address] [place] [address] documented as of this encounter Visit Diagnoses Not on filedocumented in this encounter Care Teams Customs Agent Relationship Specialty Start Date End Date Kedar Lopez MD [address] [place] [address] PCP - General 04/16/24 documented as of this encounter
--- OUTSIDE RECORDS SUMMARY | 2024-07-05 16:00 | XMS_ITS | Encounter Summary ---
Author Organization [facility] Address [address], [place] [address] Care Team Providers Care Poultry Processor Name Role Phone Kedar Lopez MD Primary Care Provider + [phone] Encounter Details Date Type Department Care Team (Latest Contact Info) Description 05/27/2019 Flowsheet External to External, [place] [address] BP Social History Tobacco Use Types Packs/Day [...] (Latest Contact Info) Description 07/15/2024 2:30 PM GREENS KEEPER Hospital Encounter Gastroenterology Procedures at [facility] [address] [place], [place] [phone] Emerson Clifford MD [address] [place] [address] 02/18/2025 10:30 AM CDT Appointment Special[facility] [place] 401 Dermatology Clinic 401 [place] [address] Abby Maya MD [address] [place] [address] documented as of this encounter Visit Diagnoses Not on filedocumented in this encounter Care Teams Poultry Processor Relationship Specialty Start Date End Date Kedar Lopez MD [address] [place] [address] PCP - General 04/16/24 documented as of this encounter
--- OUTSIDE RECORDS SUMMARY | 2024-07-05 16:00 | XMS_ITS | Encounter Summary ---
Author Organization [facility] Address [address], [place] [address] Care Team Providers Care Websphere Commerce Developer Name Role Phone Kedar Lopez MD Primary Care Provider Encounter Details Date Type Department Care Team (Late st Contact Info) Description 06/25/2017 Correspondence None No Primary/Referring, Phy HME EQUIPMENT INSURANCE CONSULTANT TICKET CPAP Social History Tobacco Use Types [...] (Latest Contact Info) Description 07/15/2024 2:30 PM FOOD CHECKERS AND CASHIERS SUPERVISOR Hospital Encounter Gastroenterology Procedures at [facility] [address] [place] [address] Emerson Clifford MD [address] [place] [address] 02/18/2025 10:30 AM CDT Appointment [facility] 401 Dermatology Clinic 401 [place] [address] Abby Maya MD [address] [place] [address] documented as of this encounter Visit Diagnoses Not on filedocumented in this encounter Care Teams Websphere Commerce Developer Relationship Specialty Start Date End Date Kedar Lopez MD [address] [place] [address] PCP - General 04/16/24 documented as of this encounter
--- OUTSIDE RECORDS SUMMARY | 2024-07-05 16:00 | XMS_ITS | Encounter Summary ---
Author Organization [facility] Address [address] [address] Care Team Providers Care Gel Coater Name Role Phone Kedar Lopez MD Primary Care Provider Encounter Details Date Type Department Care Team (Late st Contact Info) Description 06/21/2014 Correspondence None No Primary/Referring, Phy EQUIPMENT HAIR BLENDER TICKET Social History Tobacco Use Types Packs/Day [...] (Latest Contact Info) Description 07/15/2024 2:30 PM CERTIFIED SOCIAL WORKERS IN HEALTH CARE Hospital Encounter Gastroenterology Procedures at [facility] [address] [place] [address] Emerson Clifford MD 435 [place] [address] 02/18/2025 10:30 AM CDT Appointment [facility]ty [facility] 401 [place] [address] Abby Maya MD [address] [place] [address] documented as of this encounter Visit Diagnoses Not on filedocumented in this encounter Care Teams Gel Coater Relationship Specialty Start Date End Date Kedar Lopez MD [address] [place] [address] PCP - General 04/16/24 documented as of this encounter
--- OUTSIDE RECORDS SUMMARY | 2024-07-05 16:00 | XMS_ITS | Encounter Summary ---
Author Organization [facility] Address [address] [address] Care Team Providers Care Fast Food Supervisor Name Role Phone Kedar Lopez MD Primary Care Provider + [phone] Encounter Details Date Type Department Care Team (Late st Contact Info) Description 03/01/2013 Outside [facility] PROCEDURE KNEE ARTHROPLASTY Social History Tobacco [...] (Latest Contact Info) Description 07/15/2024 2:30 PM DIRECTOR GLOBAL INTELLIGENCE Hospital Encounter Gastroenterology Procedures at [facility] [address] [place] [address] Emerson Clifford MD [address] [place] [address] 02/18/2025 10:30 AM CDT Appointment [facility] 401 [place] [address] Abby Maya MD 401 [place] [address] documented as of this encounter Visit Diagnoses Not on filedocumented in this encounter Care Teams Fast Food Supervisor Relationship Specialty Start Date End Date Kedar Lopez MD [address] [place] [address] PCP - General 04/16/24 documented as of this encounter
--- OUTSIDE RECORDS SUMMARY | 2024-07-05 16:00 | XMS_ITS | Encounter Summary ---
Author Organization [facility] Address [address] [address] Care Team Providers Care Telecommunications Administrator Name Role Phone Kedar Lopez MD Primary Care Provider + [phone] Encounter Details Date Type Department Care Team (Late st Contact Info) Description 03/01/2013 Outside Hospital External to [facility] DISCHARGE SUMMARY Social History Tobacco Use [...] (Latest Contact Info) Description 07/15/2024 2:30 PM [facility] Hospital Encounter Gastroenterology Procedures at [facility] [address] [phone] Emerson Clifford MD [address] [place] [address] 02/18/2025 10:30 AM CDT Appointment [facility] 401 [facility] [place] [address] Abby Maya MD 401 [place] [address] documented as of this encounter Visit Diagnoses Not on filedocumented in this encounter Care Teams Telecommunications Administrator Relationship Specialty Start Date End Date Kedar Lopez MD [address] [place] [address] PCP - General 04/16/24 documented as of this encounter
--- OUTSIDE RECORDS SUMMARY | 2024-07-05 16:00 | XMS_ITS | Encounter Summary ---
Author Organization [facility] Address [address], [place] [address] Care Team Providers Care Senior Mortgage Underwriter Name Role Phone Kedar Lopez MD Primary Care Provider + [phone] Encounter Details Date Type Department Care Team (Latest Contact Info) Description 01/26/2013 Flowsheet External to External, [place] [address] BP Social History Tobacco Use Types Packs/Day [...] (Latest Contact Info) Description 07/15/2024 2:30 PM PHARMACY TECHNICIAN INFUSION Hospital Encounter Gastroenterology Procedures at [facility] [address] [phone] Emerson Clifford MD [address] [place] [address] 02/18/2025 10:30 AM CDT Appointment [facility] [address] [facility] [place] [address]. [place] [address] Abby Maya MD [address] [place] [address] documented as of this encounter Visit Diagnoses Not on filedocumented in this encounter Care Teams Senior Mortgage Underwriter Relationship Specialty Start Date End Date Kedar Lopez MD [address] [place] [address] PCP - General 04/16/24 documented as of this encounter
--- OUTSIDE RECORDS SUMMARY | 2024-07-05 16:00 | XMS_ITS | Encounter Summary ---
Author Organization [facility] Address [address] [address] Care Team Providers Care Manufacturing Technology Analyst Name Role Phone Kedar Lopez MD Primary Care Provider + [phone] Encounter Details Date Type Department Care Team (Late st Contact Info) Description 01/16/2012 Consent for Procedure/Treatme nt [facility] Department INFORMED CONSENT FOR SLEEP/AUDIO/VIDEO Social [...] (Latest Contact Info) Description 07/15/2024 2:30 PM REBEAMER Hospital Encounter Gastroenterology Procedures at [facility] [address] [place], [place] [phone] Emerson Clifford MD [address] [place] [address] 02/18/2025 10:30 AM CDT Appointment [facility] 401 [facility] 401 [facility] [place] [address] Abby Maya MD 401 [place] [address] documented as of this encounter Visit Diagnoses Not on filedocumented in this encounter Care Teams Manufacturing Technology Analyst Relationship Specialty Start Date End Date Kedar Lopez MD [address] [place] [address] PCP - General 04/16/24 documented as of this encounter
--- OUTSIDE RECORDS SUMMARY | 2024-07-05 16:00 | XMS_ITS | Encounter Summary ---
Author Organization [facility] Address [address] [address] Care Team Providers Care Roof Cement And Paint Maker Name Role Phone Kedar Lopez MD Primary Care Provider [phone] Encounter Details Date Type Department Care Team [...] (Latest Contact Info) Description 07/15/2024 2:30 PM TRUCK TRAILER FINAL INSPECTOR Hospital Encounter Gastroenterology Procedures at [facility] [address] [place] [address] Emerson Clifford MD [address] [place] [address] 02/18/2025 10:30 AM CDT Appointment [facility] [address] [place] [address]. [place] [address] Abby Maya MD [address] [place] [address] documented as of this encounter Visit Diagnoses Not on filedocumented in this encounter Care Teams Roof Cement And Paint Maker Relationship Specialty Start Date End Date Kedar Lopez MD [address] [place] [address] PCP - General 04/16/24 documented as of this encounter
--- OUTSIDE RECORDS SUMMARY | 2024-07-05 16:00 | XMS_ITS | Encounter Summary ---
Author Organization [facility] Address [address], [place] [address] Care Team Providers Care Band Bias Machine Operator Name Role Phone Kedar Lopez MD Primary Care Provider + [phone] Encounter Details Date Type Department Care Team (Late st Contact Info) Description 03/18/2015 Flowsheet External to External, [place] [address] BLOOD PRESSURE CHECK Social History Tobacco Use [...] (Latest Contact Info) Description 07/15/2024 2:30 PM CROWN IRONER Hospital Encounter Gastroenterology Procedures at [facility] [address] [place] [address] Emerson Clifford MD [address] [place] [address] 02/18/2025 10:30 AM CDT Appointment Specialty [place] 401 D[facility] Clinic 401 [place] [address] Abby Maya MD [address] [place] [address] documented as of this encounter Visit Diagnoses Not on filedocumented in this encounter Care Teams Band Bias Machine Operator Relationship Specialty Start Date End Date Kedar Lopez MD [address] [place] [address] PCP - General 04/16/24 documented as of this encounter
--- OUTSIDE RECORDS SUMMARY | 2024-07-05 16:00 | XMS_ITS | Encounter Summary ---
Author Organization [facility] Address [address], [place] [address] Care Team Providers Care Ironer Or Presser Name Role Phone Kedar Lopez MD Primary Care Provider [phone] Encounter Details Date Type Department Care Team (Late st Contact Info) Description 06/29/2024 Notes/Orders Gastroenterology Procedures at [facility] [address] [place] [address] Emerson Clifford MD [address] [place] [address] Social History Tobacco Use Types Packs/Day Years [...] (Latest Contact Info) Description 07/15/2024 2:30 PM [facility] Hospital Encounter Gastroenterology Procedures at [facility] [address] [place] [address] Emerson Clifford MD [address] [place] [address] 02/18/2025 10:30 AM CDT Appointment [facility] 401 [facility] Clinic 401 [facility] [place] [address] Abby Maya MD [address] [place] [address] documented as of this encounter Visit Diagnoses Not on filedocumented in this encounter Care Teams Ironer Or Presser Relationship Specialty Start Date End Date Kedar Lopez MD [address] [place] [address] PCP - General 04/16/24 documented as of this encounter
--- OUTSIDE RECORDS SUMMARY | 2024-07-05 16:00 | XMS_ITS | Encounter Summary ---
Author Organization [facility] Address [address], [place] [address] Care Team Providers Care Lens Cementer Name Role Phone Kedar Lopez MD Primary Care Provider + [phone] Encounter Details Date Type Department Care Team [...] (Latest Contact Info) Description 07/15/2024 2:30 PM MARKETING INSTRUCTOR Hospital Encounter Gastroenterology Procedures at [facility] [address] [place], [place] [phone] Emerson Clifford MD [address] [place] [address] 02/18/2025 10:30 AM CDT Appointment Specialty Center 401 D[facility] Clinic 401 [facility] [address] Abby Maya MD [address] [place], [place] [phone] documented as of this encounter Visit Diagnoses Not on filedocumented in this encounter Care Teams Lens Cementer Relationship Specialty Start Date End Date Kedar Lopez MD [address] [place] [address] PCP - General 04/16/24 documented as of this encounter
--- OUTSIDE RECORDS SUMMARY | 2024-07-05 16:00 | XMS_ITS | Encounter Summary ---
Author Organization [facility] Address [address], [place] [address] Care Team Providers Care Consultants Intern Name Role Phone Kedar Lopez MD Primary Care Provider + [phone] Encounter Details Date Type Department Care Team [...] (Latest Contact Info) Description 07/15/2024 2:30 PM MATERIAL ATTENDANT Hospital Encounter Gastroenterology Procedures at [facility] [address] [place], [place] [phone] Emerson Clifford MD [address] [place] [address] 02/18/2025 10:30 AM CDT Appointment [facility] [address] [facility] [place] [address]. [place] [address] Abby Maya MD [address] [place] [address] documented as of this encounter Visit Diagnoses Not on filedocumented in this encounter Care Teams Consultants Intern Relationship Specialty Start Date End Date Kedar Lopez MD [address] [place] [address] PCP - General 04/16/24 documented as of this encounter
--- OUTSIDE RECORDS SUMMARY | 2024-07-05 16:00 | XMS_ITS | Clinical Summary ---
Author Organization [facility] Address [address], [place] [address] Care Team Providers Care Corporate Health Consultant Name Role Phone Kedar Lopez MD Primary Care Provider + [phone] Source Comments You are receiving this document as you are listed as the primary care provider,follow-up provider, or the patient has been referred to you for consultation.This is in compliance with the Medicare andUc Healthcaid EHR Incentive Program,which states Providers who transition their patient to another setting of careor provider of care or refers their patient to another provider of care shouldprovide summary care record for each transition of care or referral. [employer] CorporationMemorial Medical CenterSignal Processing [employer] [place] Allergies No known active allergies Medications Medication Sig Dispensed Refills Start Date End Date Status NAPROXEN SODIUM OR Active aspirin 81 MG tabletIndications:Ch est pain, unspecified type Take 1 Tablet by mouth daily. 100 Tablet 3 12/30/2018 Active simvastatin (ZOCOR) 10 MG tabletIndications:Mi xed hyperlipidemia (HRC) Take 1 tablet by mouth once daily 90 Tablet 3 02/28/2021 Active amLODIPine (NORVASC) 5 MG tabletIndications:Es sential hypertension (HRC) Take 1 Tablet by mouth daily. 90 Tablet 3 03/06/2021 Active atenolol (TENORMIN) 50 MG tabletIndications:Es sential hypertension (HRC) Take 1 Tablet by mouth daily. 90 Tablet 3 03/06/2021 Active hydrOXYzine HCl (ATARAX) 25 MG tablet Take 1 Tablet (25 mg) by mouth three times a day as needed. Active clobetasol (TEMOVATE) 0.05 % ointmentIndications: Dermatitis APPLY TOPICALLY TO AREAS OF RASH 1-2 TIMES DAILY UNTIL CLEAR, REPEAT CYCLE WITH FLARES 180 g 6 06/18/2023 Active omeprazole (PRILOSEC) 20 MG capsuleIndications:B ullous pemphigoid Take 1 Capsule (20 mg) by mouth daily. Take 1 hour before a meal. 90 Capsule 3 06/18/2023 Active latanoprost (XALATAN) 0.005 % eye drop solution SMARTSIG:In Eye(s) 10/27/2023 Active lisinopril (ZESTRIL) 40 MG tablet Active Cetirizine HCl (ZYRTEC ALLERGY) 10 MG CAPS 12/27/2022 Active mycophenolate (CELLCEPT) 500 MG tabletIndications:Bu llous pemphigoid Take 1 Tablet (500 mg) by mouth two times a day. 180 Tablet 1 02/19/2024 5 Active polyethylene glycol-electrolyte (PEG ELECTROLYTE) 236 g oral solution Follow instructions given to you by [facility] staff on how to take this medication for upcoming procedure: drink 2000mL at 6PM the evening before and 2000mL 4 hours before your procedure. Do not follow instructions from education professional. 4000 mL 06/29/2024 Active bisacodyl 5 MG enteric coated tablet Take 4 tablets by mouth once at 5pm the evening before your procedure. Can substitute with OTC. 4 Tablet 06/29/2024 Active ondansetron (ZOFRAN) 4 MG tablet Take 1 tablet by mouth every 6 hours as needed for nausea. 3 Tablet 06/29/2024 Active Active Problems Problem Noted Date Diagnosed [...] Encounters Date Type Department Care Team Description 07/01/2024 E-Visit Gastroenterology Procedures at [address] [address] Mychart, Generic Provider 06/29/2024 Notes/Orders Gastroenterology Procedures at [address] [address] Emerson Clifford MD 04/16/2024 Notes/Orders [facility] at [address] [place] [address] Hope Dallas MD Special screening for malignant neoplasms, colon from Last 3 Months Immunizations Name Administration Dates Next Due Flu Vac (3+ yrs) 05/23/2011,05/25/2010 [id number] 08/11/2009,06/27/2009 Influenza IIV3 (Trivalent) F luzone Highdose, 65+ Yrs (24040) 05/05/2020,04/27/2019 Influenza IIV4 (Quadrivalent ) Fluzone, 65+ Yrs 05/05/2020 Influenza, Unspecified Formulation 05/27/2012 PCV13 (Prevnar) 04/27/2019 PPSV23 (Pneumovax) 02/29/2020, 8(Deferred: Patient Refused - until after surg 8-13) Pfizer Monovalent 12+ Purple Top 11/25/2020,04/0 03/2021 [...] Sister 2 Sister 3 Son 1 Alive [facility], 1972 Son 2 Alive [facility], 1974 Social History Tobacco Use Types Packs/Day [...] 64 03/06/2021 9:21 AM CDT Temperature 36.4 C (97.5 F) 01/04/2021 4:44 PM CDT Respiratory Rate 17 07/07/2019 12:05 PM WORK FROM HOME Oxygen Saturation 95% 07/07/2019 12:05 PM WORK FROM HOME Inhaled Oxygen Concentration - - Weight 95.7 kg (211 lb) 03/06/2021 9:21 AM CDT Height 175.3 cm (5' 9) 01/04/2021 4:44 PM CDT Body Mass Index 31.16 01/04/2021 4:44 PM CDT Plan of Treatment Upcoming Encounters Date Type Department Care Team (Latest Contact Info) Description 07/15/2024 2:30 PM WORK FROM HOME Hospital Encounter Gastroenterology Procedures at [facility] [address] [place] [address] Emerson Cliffodr MD [address] [place], [place] [phone] 02/18/2025 10:30 AM CDT Appointment [facility] 401 Dermatology Clinic 401 [place] [address] Abby Maya MD [address] [place], [place] [phone] Health Maintenance Due Date Last Done Comments [...] Mixed hyperlipidemia COLONOSCOPY Routine 07/07/2019 11:16 AM WORK FROM HOME Screen for colon cancer HEPATITIS C ANTIBODY, WITH REFLEX Routine 03/17/2018 9:22 AM CDT Screening for viral disease from Last 3 Months or Most Recently Relevant to Health Maintenance Results * Hgb A1C (03/06/2021 10:24 AM CDT) Hemoglobin A1C 5.5 <=5.6 % 03/06/2021 5:09 PM CDT [facility] Blood Venipuncture / Unknown 03/06/2021 10:24 AM CDT 03/06/2021 10:24 AM CDT Sam Madrigal MD LAB_1 [facility] [address] [phone] * Lipid Panel and Direct LDL(If Needed) (03/02/2021 7:56 AM CDT) Cholesterol 150 0 - 199 mg/dL 03/02/2021 11:43 AM CDT [facility] Triglyceride 82 <=149 mg/dL 03/02/2021 11:43 AM CDT [facility] HDL Cholesterol 51 >=40 mg/dL 03/02/2021 11:43 AM CDT [facility] LDL, Calculated 83 <130 mg/dL 03/02/2021 11:43 AM CDT [facility] Non HDL Chol, Calculated 99 <=159 mg/dL 03/02/2021 11:43 AM CDT [facility] Cholesterol/HDL Ratio 2.9 03/02/2021 11:43 AM CDT [facility] Hours Fasting 12 03/02/2021 11:43 AM CDT [facility] Blood Venipuncture / Unknown 03/02/2021 7:56 AM CDT 03/02/2021 7:56 AM CDT Sam Madrigal MD LAB_1 [facility] [address] [address] [phone] [facility] [address] [place] [address] [phone] * COLONOSCOPY [[id number]] (07/07/2019 11:16 AM WORK FROM HOME) 07/07/2019 11:1 6 AM WORK FROM HOME Narrative GI ([facility]) - 07/07/2019 11:45 AM WORK FROM HOME Instrument Name: 183 Indications: Screening for colorectal [...] diverticula were found in the sigmoid colon. A 7 mm polyp was found in [...] pathology results. Procedure Code(s): --- Professional --- 12238, PT, Colonoscopy, flexible; with removal of tumor(s), polyp(s), or other lesion(s) by snare technique G0500, PT, Moderate sedation services provided by the same physician or other qualified health ocular care technician performing a gastrointestinal endoscopic service that sedation supports, requiring the presence of an independent trained observer to assist in the monitoring of the patient's level of consciousness and physiological status; initial 15 minutes of intra-service time; patient age 5 years or older (additional time may be reported with [address], as appropriate) Diagnosis Code(s): --- Professional --- Z12.11, Encounter for screening for malignant neoplasm of colon K64.8, Other hemorrhoids D12.0, Benign neoplasm of cecum K57.30, Diverticulosis of large intestine without perforation or abscess without bleeding CPT copyright 2018 [employer]. All rights reserved. The codes documented in this report are preliminary and upon rn compliance review may be revised to meet current [...] pathology results. Procedure Code(s): --- Professional --- 33498, PT, Colonoscopy, flexible; with removal of tumor(s), polyp(s), or other lesion(s) by snare technique G0500, PT, Moderate sedation services provided by the same physician or other qualified health ocular care technician performing a gastrointestinal endoscopic service that sedation supports, requiring the presence of an independent trained observer to assist in the monitoring of the patient's level of consciousness and physiological status; initial 15 minutes of intra-service time; patient age 5 years or older (additional time may be reported with 23613, as appropriate) Diagnosis Code(s): --- Professional --- Z12.11, Encounter for screening for malignant neoplasm of colon K64.8, Other hemorrhoids D12.0, Benign neoplasm of cecum K57.30, Diverticulosis of large intestine without perforation or abscess without bleeding CPT copyright 2018 [employer]. All rights reserved. The codes documented in this report are preliminary and upon rn compliance review may be revised to meet current compliance requirements. Attending Participation: Emerson Clifford MD 07/07/2019 11:45:26 AM This report has been signed electronically. Number of Addenda: 0 Note Initiated On: 07/07/2019 11:16 AM Emerson Clifford MD [facility] [place], [place] * Hepatitis C Antibody, with Reflex (03/17/2018 9:22 AM CDT) Anti-HCV Negative (Non Reactive) [facility] Comment: Antibodies to HCV not detected. Does not exclude the possibility of exposure to HCV. 03/17/2018 9:22 AM CDT 03/17/2018 9:23 AM CDT Narrative [facility] - 03/17/2018 3:53 PM CDT Performed at [facility], [address] [place] [address] Sam Madrigal MD LAB_1 [facility] [phone] from Last 3 Months or Most Recently Relevant to Health Maintenance Care Teams Corporate Health Consultant Relationship Specialty Start Date End Date Kedar Lopez MD [address] [place] [address] PCP - General 04/16/24
--- OUTSIDE RECORDS SUMMARY | 2024-07-05 16:00 | XMS_ITS | Encounter Summary ---
Author Organization [facility] Address [address], [place] [address] Care Team Providers Care Homebound Teacher Name Role Phone Kedar Lopez MD Primary Care Provider + [phone] Encounter Details Date Type Department Care Team [...] (Latest Contact Info) Description 07/15/2024 2:30 PM SEO MARKETING SPECIALIST Hospital Encounter Gastroenterology Procedures at [facility] [address] [place] [address] Emerson Clifford MD [address] [place] [address] 02/18/2025 10:30 AM CDT Appointment [facility] [address] [place] [address]. [place] [address] Abby Maya MD [address] [place] [address] documented as of this encounter Visit Diagnoses Not on filedocumented in this encounter Care Teams Homebound Teacher Relationship Specialty Start Date End Date Kedar Lopez MD [address] [place] [address] PCP - General 04/16/24 documented as of this encounter
--- OUTSIDE RECORDS SUMMARY | 2024-07-05 16:00 | XMS_ITS | Encounter Summary ---
Author Organization [facility] Address [address], [place] [address] Care Team Providers Care Registered Phlebotomist Part Time Name Role Phone Kedar Lopez MD Primary Care Provider Encounter Details Date Type Department Care Team (Late st Contact Info) Description 02/21/2015 Correspondence [facility] [address] [place] [address]. [place], [place] [id number] Sam Madrigal MD RX CLARIFICATION NEEDED Social [...] (Latest Contact Info) Description 07/15/2024 2:30 PM TERRA COTTA SETTER Hospital Encounter Gastroenterology Procedures at [facility] [address] [place], [place] [phone] Emerson Clifford MD [address] [place] [address] 02/18/2025 10:30 AM CDT Appointment Specialty [facility] 401 Dermatology Clinic 401 [facility] [place] [address] Abby Maya MD [address] [place] [address] documented as of this encounter Visit Diagnoses Not on filedocumented in this encounter Care Teams Registered Phlebotomist Part Time Relationship Specialty Start Date End Date Kedar Lopez MD [address] [place] [address] PCP - General 04/16/24 documented as of this encounter
--- OUTSIDE RECORDS SUMMARY | 2024-07-05 16:00 | XMS_ITS | Encounter Summary ---
Author Organization [facility] Address [address], [place] [address] Care Team Providers Care Water Mangle Tender Name Role Phone Kedar Lopez MD Primary [...] (Latest Contact Info) Description 07/15/2024 2:30 PM [facility] Hospital Encounter Gastroenterology Procedures at [facility] [address] [place] [address] Emerson Clifford MD [address] [place] [id number] 02/18/2025 10:30 AM CDT Appointment [facility] [address] [place] [address]. [place] [address] Abby Maya MD [address] [place] [address] documented as of this encounter Visit Diagnoses Not on filedocumented in this encounter Care Teams Water Mangle Tender Relationship Specialty Start Date End Date Kedar Lopez MD [address] [place] [address] PCP - General 04/16/24 documented as of this encounter
--- OUTSIDE RECORDS SUMMARY | 2024-07-05 16:00 | XMS_ITS | Encounter Summary ---
Author Organization [facility] Address [address], [place] [address] Care Team Providers Care Exhibit Designer Name Role Phone Kedar Lopez MD Primary Care Provider Encounter Details Date Type Department Care Team (Late st Contact Info) Description 04/07/2014 Correspondence None No Primary/Referring, Phy EQUIPMENT CORSETIER TICKET CPAP Social History Tobacco Use Types [...] (Latest Contact Info) Description 07/15/2024 2:30 PM [facility] GENERAL OPERATIONAL TEST Hospital Encounter Gastroenterology Procedures at [facility] [address] [place] [address] Emerson Clifford MD [address] [place] [address] 02/18/2025 10:30 AM CDT Appointment [facility] [facility] 401 [facility] [place] [address] Abby Maya MD [address] [place] [id number] documented as of this encounter Visit Diagnoses Not on filedocumented in this encounter Care Teams Exhibit Designer Relationship Specialty Start Date End Date Kedar Lopez MD [address] [place] [address] PCP - General 04/16/24 documented as of this encounter
--- OUTSIDE RECORDS SUMMARY | 2024-07-05 16:00 | XMS_ITS | Encounter Summary ---
Author Organization [facility] Address [address], [place] [address] Care Team Providers Care Adult Education Teacher Name Role Phone Kedar Lopez MD Primary Care Provider [phone] Encounter Details Date Type Department Care Team [...] (Latest Contact Info) Description 07/15/2024 2:30 PM [facility] MECHANIC Hospital Encounter Gastroenterology Procedures at [facility] [address] [place] [address] Emerson Clifford MD [address] [place] [address] 02/18/2025 10:30 AM CDT Appointment [facility] [place] [address] [place] [address] Abby Maya MD [address] [place] [id number] documented as of this encounter Visit Diagnoses Not on filedocumented in this encounter Care Teams Adult Education Teacher Relationship Specialty Start Date End Date Kedar Lopez MD [address] [place] [address] PCP - General 04/16/24 documented as of this encounter
== END 2024-07-02 07:56 | disposition home or self-care (01) ==
LOC: NFLDREF 07-05 15:57
PROVIDERS: PCP Family Medicine; Referring Provider Family Medicine; Visit Provider Family Medicine
DX: I10 Essential (primary) hypertension (principal); E87.1 Hypo-osmolality and hyponatremia
CPT/HCPCS: 80048

== ENCOUNTER 2024-12-09 07:52 | Outpatient (CLI) | payer MEDICARE, SELFPAY | END 2024-12-09 07:53 | disposition home or self-care (01) | LOC: NFLDREF 12-16 00:19 | PROVIDERS: PCP Family Medicine; Referring Provider Family Medicine; Visit Provider Family Medicine | DX: E78.5 Hyperlipidemia, unspecified (principal); Z12.5 Encounter for screening for malignant neoplasm of prostate | CPT/HCPCS: 80053; 80061; G0103 ==